=== PATIENT | male | born 1945 | race Two or more races ===

== ENCOUNTER 2024-12-31 10:02 | Inpatient (IN) | payer MEDICARE, MEDICAID ==
[~2024-12-31] VITALS: Ht 165.1 cm; Wt 69.6 kg
--- NOTE | 2024-12-31 10:32 | ED.PDOC ---
History of Present Illness HPI Comments HPI: Poor Historian. Decreased appetite and generalized weakness 78y M who presents to the ED via EMS for chief complaint of generalized weakness. Pt had the following ED course: - pt was at home and pt daughter after she has noticed increased weakness from pt and noted today, pt has increasing difficulty rising from toilet and EMS was called to the scene - EMS arrived on scene and noted after checking vitals, noted BP to be systolic in the 70's with noted all other vitals in normal range and pt ax0x4. - EMS gave pt 400 ml bolus and 1 gram Tylenol en route to the ED - pt now in the ED, states he has been having generalized weakness for the past 2 weeks - pt has not been eating his daily meals and has not consistently been taking his daily medications - pt family states pt was recently dx with UTI and has been taking keflex but has not been taking his benzoate, glipizide, metformin, and mirtazapine - pt has history of liver cancer and receives chemo with last tx 3 weeks prior with next tx scheduled for tomorrow. - pt in the ED, otherwise noted generalized weakness but denies any specific complaints - past medical history: DM, HTN, liver cancer past surgical history: unknown medications: glipizide, metformin, mirtazapine, allergies: nkda social history: denies tobacco use, denies Etoh use, denies drug use REVIEW OF SYSTEMS: CONSTITUTIONAL: Denies acute: fever, diaphoresis, chills, HEAD: Denies acute: headache, photophobia Eyes: Denies acute: Double vision, vision loss, eye pain, eye discharge. EARS: Denies acute: tinnitus, hearing loss, ear discharge, ear pain, THROAT: Denies acute: sore throat, swelling, difficulty swallowing , pain with swallowing, change in voice. NECK: Denies acute: neck pain, neck swelling, stiff neck. HEART: Denies acute : chest pain, palpitations, LUNGS: Denies acute: SOB, wheezing, cough, hemoptysis ABDOMEN: Denies acute: abdominal pain, Nausea, Vomiting, diarrhea, melena , hematemesis, hematochezia SKIN: Denies acute: rash, redness, lesions, itchiness. EXTREMITIES: Denies acute: calf pain, numbness, tingling, weakness, denies pain in extremity. Denies acute: Low back pain. Neuro: Denies acute: focal neurological deficit, motor or sensory focal neurological deficit, tremors, seizure like activity, confusion, dizziness, change in mental status, loss of bowel or bladder function, cauda equina like symptoms. : Denies acute: dysuria, hematuria, flank pain, increase in urinary frequency. PSYCH: Denies acute: hallucination, suicidal ideation, homicidal ideation. PHYSICAL EXAM: General: no acute distress, awake and alert. Head: normocephalic, atraumatic. Neck: supple, trachea is midline, no swelling. Throat: Normal phonation. Eyes:, no erythema, no purulent discharge, no proptosis, no icterus. Heart: regular tachycardia, no significant murmur appreciated. Lungs: no apparent respiratory distress, Able to speak in full sentences. No wheezing, no rhonchi, no crackles. No stridors Clear to auscultation bilaterally. Abdomen: non tender to palpation, slightly distended, soft, no guarding, no rebound, + bowel sounds. Neuro: Awake, Alert, oriented to name, self, situation, follows commands GCS=15. Speech is normal. Skin: no petechia, no purpura, no cyanosis, slightly-pale, generalized mild jaundice. Lower extremities: --2/4 bilateral - Pitting edema no deformity, no focal swelling, no calf TTP. Makes eye contact. moves all four extremities. Face: no apparent facial droop. No nuchal rigidity, Kernig's sign, Brudzinski's sign, no meningeal signs. ED COURSE: Chief Complaint: General Weakness Time Seen by MD: 10:17 Primary Care Provider: UNKNOWN Reviewed Notes: Nurses Notes, Allergies Allergies: Coded Allergies: NO KNOWN ALLERGIES (Unverified , 12/31/24) Home Meds Reported Medications Losartan Potassium (Losartan Potassium) 25 Mg Tab, 1 TAB PO DAILY 12/31/24 Mirtazapine (Mirtazapine Oral Disintegrating Tablet) 15 Mg Tab, 1 TAB PO 12/31/24 Information Source: Patient, Relative, Spouse Mode of Arrival: EMS Was a procedure done? Was a procedure done?: No Differential Dx Considerations may include: Includes but not limited to thyroid disease, encephalopathy, electrolyte abnormality, sepsis, infection, intracranial pathology, drug adverse effects, arrhythmia, kidney insufficiency, ACS, CVA, malignancy, anemia X-Ray, Labs, Meds, VS Vital Signs Date Time Temp Pulse Resp B/P (MAP) Pulse Ox O2 Delivery O2 Flow Rate FiO2 12/31/24 13:00 98 30 110/68 (82) 96 12/31/24 12:17 98 29 90/57 (68) 12/31/24 12:00 98 28 89/55 (66) 93 12/31/24 12:00 100 12/31/24 11:17 101 21 94/59 (71) 93 12/31/24 11:00 102 19 93 Room Air* 0 21 12/31/24 11:00 102 19 88/56 (67) 12/31/24 10:23 99.5 105 28 96/52 (67) 94 99.5 12/31/24 10:12 98.3 107 18 105/77 (86) 93 98.3 12/31/24 10:04 107 Lab Test 12/31/24 12:55 12/31/24 11:28 12/31/24 10:54 Range/Units Lactic Acid Level 4.9 *H 6.8 *H 0.4-2.0 mmol/L White Blood Count 14.6 H 4.4-10.8 10^3/uL Red Blood Count 4.02 L 4.5-5.90 10^6/uL Hemoglobin 8.5 L 13.5-17.5 g/dL Hematocrit 28.4 L 41.0-53.0 % Mean Corpuscular Volume 70.7 L 80.0-100.0 fL Mean Corpuscular Hemoglobin 21.2 L 28.0-32.0 pg Mean Corpuscular Hemoglobin Concent 30.0 L 32.0-36.0 g/dL Red Cell Distribution Width 26.8 H 11.8-14.3 % Platelet Count 205 140-450 10^3/uL Mean Platelet Volume 9.0 6.9-10.8 fL Neutrophils (%) (Auto) 37.0-80.0 % Lymphocytes (%) (Auto) 10.0-50.0 % Monocytes (%) (Auto) 0.0-12.0 % Basophils (%) (Auto) 0.0-2.0 % Neutrophils # (Auto) 1.6-8.6 10 ^3/uL Lymphocytes # (Auto) 0.4-5.4 10 ^3/uL Monocytes # (Auto) 0-1.3 10 ^3/uL Differential Total Cells Counted 100.0 100 Neutrophils % (Manual) 69 37.0-80.0 Band Neutrophils % (Manual) 13 Lymphocytes % (Manual) 17 10.0-50.0 Monocytes % (Manual) 1 0-12 Eosinophils % (Manual) 0 0-7 Basophils % (Manual) 0 0.0-2.0 Metamyelocytes % (manual) 0 Myelocytes % (Manual) 0 Promyelocytes % (Manual) 0 Blast Cells % (Manual) 0 Reactive Lymphocytes 0 Platelet Estimate Adequate Hypochromasia (manual) Moderate Anisocytosis (manual) Moderate Microcytosis Moderate Target Cells Moderate Sodium Level 131 L 136-145 mmol/L Potassium Level 5.2 H 3.5-5.1 mmol/L Chloride Level 97 L 98-107 mmol/L Carbon Dioxide Level 19 L 20-31 mmol/L Anion Gap 15 5-15 Blood Urea Nitrogen 49 H 9-23 mg/dL Creatinine 1.86 H 0.700-1.30 mg/dL Glomerular Filtration Rate Calc 37 >90 mL/min BUN/Creatinine Ratio 26.3 H 10.0-20.0 Serum Glucose 139 H 74-106 mg/dL Hemoglobin A1c 5.7 <5.7 % A1C Calcium Level 8.2 L 8.7-10.4 mg/dL Total Bilirubin 1.5 H 0.2-1.0 mg/dL Aspartate Amino Transferase (AST) 305 H 13-40 U/L Alanine Aminotransferase (ALT) 112 H 7-40 U/L Alkaline Phosphatase 288 H 46-116 U/L B-Type Natriuretic Peptide 261.59 0-100 pg/mL Total Protein 5.6 L 5.7-8.2 g/dL Albumin 2.2 L 3.2-4.8 g/dL Magnesium Level 1.8 1.6-2.6 mg/dL Current Medications Medications (Trade) Dose Ordered Sig/Go Route Start Time Stop Time Status Last Admin Sodium Chloride 1,500 ml @ 1,500 mls/hr ONCE ONCE IV 12/31/24 12:00 12/31/24 12:59 DC 12/31/24 12:19 Piperacillin Sod/ Tazobactam Sod 100 ml @ 100 mls/hr ONCE ONCE IV 12/31/24 12:00 12/31/24 12:59 DC 12/31/24 12:[address] [address] Ph: [phone] DIAGNOSTIC IMAGING Diagnostic Imaging Report : [id number] Signed PATIENT: SHERLY KENNYACCT: [id number] UNIT: [id number] : 1945 LOC: ER ROOM / BED: / AGE / SEX: 79 / M ADM STATUS: REG ER SERVICE 1048 ORDERING PHYSICIAN: JJ MCDOWELL DO PROCEDURE(s): CXRP - CHEST PORTABLE REASON: weak ORDER NUMBER(s): [id number], ACCESSION NUMBER(s): [id number] CHEST RADIOGRAPH Indication: weak Technique: Single frontal view of the chest was obtained COMPARISON: None FINDINGS: Lines and Tubes: Right chest wall pacemaker in satisfactory position. Lungs: Bilateral lower lobe airspace disease. Pleura: No effusion. No pneumothorax. Cardiomediastinal contours: Unremarkable Bones: Unremarkable IMPRESSION: Bilateral lower lobe airspace disease. ATED BY: STONEY BAUM MD DICTATED DATE/TIME: 12/31/241220 SIGNED BY: STONEY BAUM MD SIGNED DATE/TIME: 12/31/241220 CC: Time of 1ST Reevaluation: 21:40 Reevaluation 1ST: Improved Patient Education/Counseling: Diagnosis, Treatment Family Education/Counseling: Diagnosis, Treatment Comments Patient presented with the above HPI.--generalized weakness----workup was initiated. patient was found with the above mentioned diagnosis. the following medications were ordered: please refer to order lists of meds and tests obtained by myself Dr. Mcdowell. Patient ED course and VS have been stabilized. Patient has been reassessed in the ED and remained in a stable condition. Pertinent incidental findings were discussed with the patient and/or family. Patient/family voices understanding and is agreeable with plan. Patient has been observed in the ED adequate length of time to insure improvement/stability. Escalation of care considered: Consideration of escalation to observation or admission Patient was ADMITTED to the medicine team for further evaluation and treatment of their presentation. Sepsis protocol was initiated with antibiotics and fluids. All the reports of any imaging studies that were ordered by myself were reviewed by myself. Departure 1 Departure Time of Disposition: 11:55 Impression: Primary Impression: Sepsis Additional Impressions: Leukocytosis Elevated lactic acid level Anemia Liver cancer Pneumonia Disposition: ADMITTED INPATIENT Admit to: [facility] Condition: Guarded Discharged With: Self Critical Care Note Critical Care Time?: Yes (55 min-critical care time only) I personally scribed for JJ MCDOWELL DO (NAHUNFARMI) on 12/31/24 at 10:32. Electronically submitted by Stephanie Adler ([employer]). I personally scribed for JJ MCDOWELL DO (NAHUNFARMI) on 12/31/24 at 10:51. Electronically submitted by Stephanie Adler ([employer]). I personally scribed for JJ MCDOWELL DO (DVFARMI) on 12/31/24 at 12:44. Electronically submitted by Stephanie Adler ([employer]). JJ MCDOWELL DO Dec 31, 2024 10:32
[2024-12-31 11:00] VITALS: PULSE 102; RESP 19; O2SAT 93
[2024-12-31 11:44] LABS: Hemoglobin 8.5 g/dL (13.5-17.5)
[2024-12-31 11:47] LABS: Hematocrit 28.4 % (41.0-53.0); Mean Corpuscular Hemoglobin 21.2 pg (28.0-32.0); Mean Corpuscular Volume 70.7 fL (80.0-100.0); Platelet Count (auto) 205 10^3/uL (140-450); Red Blood Cells 4.02 10^6/uL (4.5-5.90); Red Cell Distribution Width 26.8 % (11.8-14.3); White Blood Cell 14.6 10^3/uL (4.4-10.8)
[2024-12-31 11:48] LABS: Lactic Acid w/Reflex 6.8 mmol/L (0.4-2.0)
[2024-12-31 11:54] LABS: Basophils % (manual) 0 (0.0-2.0); Blast Cells 0; Eosinophils % (manual) 0 (0-7); Metamyelocytes % 0; Myelocytes % 0; Promyelocytes % 0; Reactive Lymphocytes 0
[2024-12-31 12:08] LABS: Anion Gap 15 (5-15); BUN/Creatinine Ratio 26.3 (10.0-20.0)
[2024-12-31 12:12] LABS: Alanine Aminotransferase 112 U/L (7-40); Albumin 2.2 g/dL (3.2-4.8); Alkaline Phosphatase 288 U/L (46-116); Aspartate Aminotransferase 305 U/L (13-40); Bilirubin, Total 1.5 mg/dL (0.2-1.0); Blood Urea Nitrogen 49 mg/dL (9-23); Calcium 8.2 mg/dL (8.7-10.4); Carbon Dioxide 19 mmol/L (20-31); Chloride 97 mmol/L (98-107); Glucose 139 mg/dL (74-106); Potassium 5.2 mmol/L (3.5-5.1); Sodium 131 mmol/L (136-145); Total Protein 5.6 g/dL (5.7-8.2)
[2024-12-31] MEDS: SODIUM CHLORIDE 0.9% 1,500 ML IV ONE (12:19)
--- NOTE | 2024-12-31 12:24 | DVH ---
CHEST RADIOGRAPH Indication: weak Technique: Single frontal view of the chest was obtained COMPARISON: None FINDINGS: Lines and Tubes: Right chest wall pacemaker in satisfactory position. Lungs: Bilateral lower lobe airspace disease. Pleura: No effusion. No pneumothorax. Cardiomediastinal contours: Unremarkable Bones: Unremarkable IMPRESSION: Bilateral lower lobe airspace disease.
[2024-12-31 12:27] LABS: Band Neutrophils % (manual) 13; Lymphocytes % (manual) 17 (10.0-50.0); Monocytes % (manual) 1 (0-12); Platelet Estimate Adequate
[2024-12-31 12:28] LABS: Anisocytosis Moderate; Hypochromia Moderate; Target Cell MODERATE
[2024-12-31] MEDS: PIPERACILLIN-TAZOB 3.375GM 100 ML IV ONE (12:33)
[2024-12-31] MEDS ORDERED: ACETAMINOPHEN 325 MG TAB PO PRN (13:15)
[2024-12-31] MEDS ORDERED: DEXTROSE (50%) 50ML SYRG IV PRN (13:45)
--- NOTE | 2024-12-31 13:51 | DVHHP2 ---
History of Present Illness Reason for Visit: Generalized weakness and decreased appetite History of Present Illness Tiago Davila is a 79YO M with a past medical history of hypertension, diabetes type 2, and liver cancer on chemo at [facility] in [place] who presents to the ED with generalized weakness and decreased appetite x1 week. Patient's daughter Poonam and granddaughter Nena report that he has not been walking for the last week and are requesting a wheelchair upon discharge. Family reports that he does use a front wheel walker when he does ambulate. They also reported that he was diagnosed recently with a UTI. Upon examination patient has a wet cough with a productive sputum noted. Patient denies any chest pain, shortness of breath, fever, chills, lightheadedness, dizziness, recent trauma or injury, abdominal pain, nausea, vomiting, or diarrhea. Family member states that patient has been getting 3 weeks of chemo for the liver cancer and has a pending chemo treatment for tomorrow. Cardiovascular: HTN Endocrine: Diabetes Past Medical History Liver cancer on chemo Past Surgical History: Other (Abdominal surgery 30 years ago) Family History: Other (Both parents ) Smoke: No ALCOHOL: none Drugs: None Lives: with Family Domestic Violence: Neg Review of Systems Constitutional: Yes: Weakness, Malaise, Other (Decreased appetite) Respiratory: Cough Allergies: Coded Allergies: NO KNOWN ALLERGIES (Unverified , 12/31/24) Medications Current Medications Medications Dose Ordered Sig/Go Route Start Time Stop Time Status Last Admin Dose Admin Piperacillin Sod/ Tazobactam Sod 100 ml @ 25 mls/hr Q8HR IV 12/31/24 14:00 UNV Sodium Chloride 1,000 ml @ 100 mls/hr Q10H IV 12/31/24 13:15 Ondansetron HCl 4 mg Q4HP PRN IV 12/31/24 13:15 Enoxaparin Sodium 30 mg DAILY SC 01/01/25 10:00 UNV Acetaminophen 650 mg Q6HP PRN PO 12/31/24 13:15 Diagnostic Test (Pha) 1 strip ACHS 12/31/24 17:00 Insulin Human Regular ACHS SC 12/31/24 17:00 Dextrose 50 ml UD PRN IV 12/31/24 13:45 Exam Vital Signs Vital Signs Date Time Temp Pulse Resp B/P (MAP) Pulse Ox O2 Delivery O2 Flow Rate FiO2 12/31/24 13:00 98 30 110/68 (82) 96 12/31/24 11:00 Room Air* 0 21 12/31/24 10:23 99.5 99.5 General Appearance: Alert, Oriented X3, Cooperative, No acute distress HEENT: PERRLA, EOMI Respiratory: Normal air movement Cardiovascular: Normal S1, Normal S2, No murmurs Abdominal: Soft Neuro: Sensation intact Psych/Mental Status: Mental status NL, Mood NL Labs/Xrays Labs Test 12/31/24 12:55 12/31/24 11:28 12/31/24 10:54 Range/Units White Blood Count 14.6 H 4.4-10.8 10^3/uL Red Blood Count 4.02 L 4.5-5.90 10^6/uL Hemoglobin 8.5 L 13.5-17.5 g/dL Hematocrit 28.4 L 41.0-53.0 % Mean Corpuscular Volume 70.7 L 80.0-100.0 fL Mean Corpuscular Hemoglobin 21.2 L 28.0-32.0 pg Mean Corpuscular Hemoglobin Concent 30.0 L 32.0-36.0 g/dL Red Cell Distribution Width 26.8 H 11.8-14.3 % Platelet Count 205 140-450 10^3/uL Mean Platelet Volume 9.0 6.9-10.8 fL Neutrophils (%) (Auto) 37.0-80.0 % Lymphocytes (%) (Auto) 10.0-50.0 % Monocytes (%) (Auto) 0.0-12.0 % Basophils (%) (Auto) 0.0-2.0 % Neutrophils # (Auto) 1.6-8.6 10 ^3/uL Lymphocytes # (Auto) 0.4-5.4 10 ^3/uL Monocytes # (Auto) 0-1.3 10 ^3/uL Differential Total Cells Counted 100.0 100 Neutrophils % (Manual) 69 37.0-80.0 Band Neutrophils % (Manual) 13 Lymphocytes % (Manual) 17 10.0-50.0 Monocytes % (Manual) 1 0-12 Eosinophils % (Manual) 0 0-7 Basophils % (Manual) 0 0.0-2.0 Metamyelocytes % (manual) 0 Myelocytes % (Manual) 0 Promyelocytes % (Manual) 0 Blast Cells % (Manual) 0 Reactive Lymphocytes 0 Platelet Estimate Adequate Hypochromasia (manual) Moderate Anisocytosis (manual) Moderate Microcytosis Moderate Target Cells Moderate Sodium Level 131 L 136-145 mmol/L Potassium Level 5.2 H 3.5-5.1 mmol/L Chloride Level 97 L 98-107 mmol/L Carbon Dioxide Level 19 L 20-31 mmol/L Anion Gap 15 5-15 Blood Urea Nitrogen 49 H 9-23 mg/dL Creatinine 1.86 H 0.700-1.30 mg/dL Glomerular Filtration Rate Calc 37 >90 mL/min BUN/Creatinine Ratio 26.3 H 10.0-20.0 Serum Glucose 139 H 74-106 mg/dL Calcium Level 8.2 L 8.7-10.4 mg/dL Total Bilirubin 1.5 H 0.2-1.0 mg/dL Aspartate Amino Transferase (AST) 305 H 13-40 U/L Alanine Aminotransferase (ALT) 112 H 7-40 U/L Alkaline Phosphatase 288 H 46-116 U/L B-Type Natriuretic Peptide 261.59 0-100 pg/mL Total Protein 5.6 L 5.7-8.2 g/dL Albumin 2.2 L 3.2-4.8 g/dL Magnesium Level 1.8 1.6-2.6 mg/dL CHEST RADIOGRAPH Indication: weak Technique: Single frontal view of the chest was obtained COMPARISON: None FINDINGS: Lines and Tubes: Right chest wall pacemaker in satisfactory position. Lungs: Bilateral lower lobe airspace disease. Pleura: No effusion. No pneumothorax. Cardiomediastinal contours: Unremarkable Bones: Unremarkable IMPRESSION: Bilateral lower lobe airspace disease. Assessment/Plan Assessment/Plan Assessment Leukocytosis rule out sepsis Anemia Tachycardia Hyponatremia Hyperkalemia Hypomagnesemia Azotemia Hyperbilirubinemia Transaminitis Lactic acidosis ?PNA Diabetes type 2 History of hypertension History of liver cancer on chemo History of abdominal surgery 30 years ago Plan Admit to [facility] IV antibiotics-Zosyn Hemoglobin A1c ISS and Accu-Cheks IV fluids Urine cultures NS 1.5 L given in ED Manual differential Chest x-ray UA BNP Mag level Lactic Blood cultures EKG noted Home medications reconciled Discussed plan of care with patient, patient's daughter, patient's granddaughter, and nurse DVT prophylaxis-Lovenox PUD prophylaxis-not indicated no history of GERD or GI bleed Plan discussed with: Patient, Daughter, Other (Granddaughter) My Orders Orders - MAIDA GALLARDO Procedure Category Date Status Time Piperacillin-Tazob PHA 12/31/24 Logged 3.375gm (Zosyn 3.375g 14:00 Sodium Chloride 0.9% PHA 12/31/24 In Process 13:15 Admit ADMIT 12/31/24 Transmitted 13:10 Allergies LUDWIG 12/31/24 In Process 13:10 Code Status CODE 12/31/24 Transmitted 13:10 Ondansetron Hcl PHA 12/31/24 In Process (Zofran) 13:15 Complete Blood Count LAB 01/01/25 Verified 04:00 Comprehensive LAB 01/01/25 Verified Metabolic Panel 04:00 Cardiac DIET 12/31/24 Transmitted Diet-2gna,Lofat,Lochol Lunch Enoxaparin Sodium PHA 01/01/25 Logged (Lovenox) 10:00 Acetaminophen Tablet PHA 12/31/24 In Process (Tylenol Tablet) 13:15 Urine Bacterial AMADOR 12/31/24 Logged Culture 13:10 Glucose Blood PHA 12/31/24 In Process (Accu-Chek Comfort 17:00 Insulin R (Human) PHA 12/31/24 In Process (Insulin R) 17:00 Dextrose 50% Syringe PHA 12/31/24 In Process 13:45 Hemoglobin A1c LAB 12/31/24 Logged 13:39 Date of Service: Dec 31, 2024 Billing Provider: MAIDA GALLARDO Common Visit Codes: [id number] INP/OBS CARE (HIGH) MAIDA GALLARDO Dec 31, 2024 13:51
[2024-12-31] MEDS: SODIUM ZIRCONIUM CYCL 10 GM PAK PO ONE (14:37)
[2024-12-31] MEDS: SODIUM CHLORIDE 0.9% 1,000 ML IV SCH (14:46)
[2024-12-31] MEDS ORDERED: MIRT15TA PO (14:55)
[2024-12-31] MEDS ORDERED: LOS25T PO (14:55)
[2024-12-31] MEDS: MAGNESIUM SULFATE 1GM/100ML 100 ML IV ONE (15:58)
[2024-12-31 17:06] LABS: Urine Bacteria None Seen /hpf (None Seen)
[2024-12-31] MEDS: ACCU-CHEK COMFORT CURVE STRIP VI SCH (18:39)
[2024-12-31] MEDS: InsuLIN REG 1unit/0.01ml Soln (100units/ml) SC SCH (19:07)
[2024-12-31 19:30] VITALS: PULSE 98; RESP 19; O2SAT 94
[2024-12-31 20:24] LABS: Urine Blood TRACE /uL (Negative); Urine Clarity Turbid (Clear); Urine Color Yellow (Yellow); Urine Mucus FEW (None Seen); Urine Protein, UAD 1+ (Negative); Urine Specific Gravity 1.022 (1.001-1.035); Urine Squamous Epithelial Cell FEW /hpf (<5); Urine Urobilinogen Normal (Negative); Urine WBC 9 /HPF (0-3); Urine pH 5.5 (5.0-9.0)
[2024-12-31] MEDS: PIPERACILLIN-TAZOB 3.375GM 100 ML IV SCH (21:07)
[2024-12-31] MEDS: CALCIUM GLUC 1,000mg/50ml-NS 50 ML IV SCH (22:30)
[2024-12-31 22:41] LABS: Hematocrit 23.2 % (41.0-53.0)
--- NOTE | 2024-12-31 22:59 | DVH ---
Exam: CT CT AB PEL WO CON-NO ORAL OR IV History: R/O GI bleed Comparison Study: None available at time of dictation. TECHNIQUE: Multidetector CT of the abdomen was performed from lung bases to pubic symphysis. Imaging was performed without IV contrast. Axial, coronal and sagittal multiplanar reformats were obtained fr om the axial data set by the technologist. Radiation Dose Information: CT Dose: CTDI volume is 9.64 mGy. Dose-length product is 593.24 mGy*cm FINDINGS: Evaluation of solid organs is limited due to lack of intravenous contrast use. Findings: Lung Bases: Bibasilar infra airspace disease left worse than right. Normal heart size. Bilateral ple ural effusions left worse than right. Liver: The liver is normal in size. No focal lesions. Gallbladder and Biliary Tree: Unremarkable Spleen: Unremarkable Pancreas: Appears to be a large mass involving the head and body of the pancreas. Appears to measure 17.3 cm in width and 10.7 cm in AP dimension. Is somewhat difficult to distinguish from the right lob e of the liver. Consider possible repeat CT with IV contrast. Another possibility would be an MRI. Adrenal Glands: Unremarkable Kidneys: Kidneys are grossly normal without calculi or hydronephrosis. Bladder: Grossly unremarkable for degree of distention. Bowel: The stomach is grossly normal in appearance. Small bowel and colon are normal in caliber and d istribution. The appendix is not visualized; however, no secondary findings of acute appendicitis id entified. Ascites: Small amount of ascites Lymphadenopathy: No mesenteric, retroperitoneal or periportal lymphadenopathy. Abdominal Wall and Mesentery: Unremarkable. Vasculature: The visualized abdominal aorta is normal in size and caliber. Evaluation of abdominal a nd pelvic vessels is limited due to lack of intravenous contrast. Pelvic Organs: Unremarkable Musculoskeletal: No aggressive focal bony lesions, acute fractures or dislocation. Soft tissues: Unremarkable IMPRESSION: 1. Liver appears heterogeneous. 2. There appears to be a large mass involving the head and body of the pancreas. It is difficult to s eparate it from the liver. Appears to measure 17.3 cm in transverse dimension and 10.3 cm in AP dime nsion. Consider repeat study with IV contrast or MRI. 3. Ascites 4. Radiation optimization: All CT scans at this facility use at least one of these dose optimization te chniques: automated exposure control mA and/or kV adjustment per patient size (includes targeted exa ms where dose is matched to clinical indication) or iterative reconstruction. HS:Y
[2025-01-01] VITALS (38 sets, daily range): BP systolic 88–130; BP diastolic 53–80; PULSE 74–105; RESP 13–26; TEMP 96.9–97.8; O2SAT 90–100
[2025-01-01] MEDS: PANTOPRAZOLE 80 MG in SODIUM CHL 0.9% 100 ML IV ONE ×2 (01:57→18:41)
[2025-01-01] MEDS: PANTOPRAZOLE 40mg/50ML NS AE 50 ML IV ONE (02:02)
[2025-01-01] MEDS: PANTOPRAZOLE 40 MG/10 ML VIAL INJ IV ONE (02:02)
[2025-01-01] MEDS: PANTOPRAZOLE 40mg/50ML NS AE 50 ML IV SCH ×2 (02:36→22:04)
[2025-01-01] MEDS ORDERED: GLIP10TA9 PO (03:06)
[2025-01-01] MEDS ORDERED: METF-370 PO (03:10)
[2025-01-01] MEDS ORDERED: BENZ100C97 PO (03:10)
[2025-01-01] MEDS ORDERED: CEPH250C PO (03:12)
[2025-01-01 09:50] LABS: Basophils # (auto) 0.2 10 ^3/uL (0-0.2); Basophils % (auto) 2.2 % (0.0-2.0); Eosinophils # (auto) 0.1 10 ^3/uL (0-0.8); Eosinophils % (auto) 1.4 % (0.0-7.0); Hematocrit 25.9 % (41.0-53.0); Hemoglobin 8.1 g/dL (13.5-17.5); Lymphocytes # (auto) 2.1 10 ^3/uL (0.4-5.4); Lymphocytes % (auto) 26.5 % (10.0-50.0); Mean Corpuscular Hemoglobin 22.5 pg (28.0-32.0); Mean Corpuscular Hgb Conc. 31.3 g/dL (32.0-36.0); Mean Corpuscular Volume 71.8 fL (80.0-100.0); Monocytes # (auto) 0.8 10 ^3/uL (0-1.3); Monocytes % (auto) 9.7 % (0.0-12.0); Neutrophils # (auto) 4.7 10 ^3/uL (1.6-8.6); Neutrophils % (auto) 60.2 % (37.0-80.0); Nucleated Red Blood Cells % 0.4 %; Platelet Count (auto) 193 10^3/uL (140-450); Red Blood Cells 3.61 10^6/uL (4.5-5.90); Red Cell Distribution Width 26.4 % (11.8-14.3); White Blood Cell 7.8 10^3/uL (4.4-10.8)
[2025-01-01 10:02] LABS: Anion Gap 9 (5-15); BUN/Creatinine Ratio 38.7 (10.0-20.0); Carbon Dioxide 22 mmol/L (20-31); Chloride 102 mmol/L (98-107); Potassium 4.2 mmol/L (3.5-5.1)
[2025-01-01 10:11] LABS: % Iron Saturation 4.7 % (20-55)
[2025-01-01 10:15] LABS: Alanine Aminotransferase 113 U/L (7-40); Albumin 2.1 g/dL (3.2-4.8); Alkaline Phosphatase 236 U/L (46-116); Aspartate Aminotransferase 302 U/L (13-40); Bilirubin, Total 1.5 mg/dL (0.2-1.0); Blood Urea Nitrogen 55 mg/dL (9-23); Calcium 8.1 mg/dL (8.7-10.4); Glucose 171 mg/dL (74-106); Sodium 133 mmol/L (136-145); Total Protein 5.2 g/dL (5.7-8.2)
[2025-01-01] MEDS: ENOXAPARIN SOD 30 MG/0.3 ML SYRINGE SC SCH (10:25)
--- NOTE | 2025-01-01 11:52 | DVHINCON2 ---
GI Consult Consult Note GI consult note Date of Consultation: 01/01/2025 Chief Complaint: Anemia, stool occult blood, history liver cancer Referring Physician: Dr. Dunaway H&P: 79-year-old Yemeni-speaking male, family at bedside translating, presented to ER with generalized weakness for one week Patient also has decreased appetite, patient has decreased weight unsure of how many lb per family Recently diagnosed with UTI No abdominal pain. No nausea or vomiting Last BM today, with melena and red blood, which started one day ago Last EGD August2024. And patient was also diagnosed with liver cancer at this time. Sees Dr. Khoi Kellogg at [facility], and has been on chemo. No colonoscopy in past Patient is on Lovenox Past Medical History: Cardiovascular: HTN Endocrine: Diabetes Past Medical History Liver cancer on chemo Past Surgical History: Abdominal surgery more than 30 years ago Social History: NO smoking, drinking ETOH and use of illegal drugs. Family History: Noncontributory Review of Systems: Constitutional: no fever, chill, +weight loss Heart: no chest pain, no chest pressure Lung: + cough, no dyspnea with exertion Abdomen: see HPI Physical exam: General: NAD, AAOX3 Chest: lung coleman clear to auscultation Heart: RRR, no murmur Abdomen: non-distended, no tenderness to palpation, +BS Labs:Labs Test 12/31/24 12:55 12/31/24 11:28 12/31/24 10:54 Range/Units White Blood Count 14.6 H 4.4-10.8 10^3/uL Red Blood Count 4.02 L 4.5-5.90 10^6/uL Hemoglobin 8.5 L 13.5-17.5 g/dL Hematocrit 28.4 L 41.0-53.0 % Mean Corpuscular Volume 70.7 L 80.0-100.0 fL Mean Corpuscular Hemoglobin 21.2 L 28.0-32.0 pg Mean Corpuscular Hemoglobin Concent 30.0 L 32.0-36.0 g/dL Red Cell Distribution Width 26.8 H 11.8-14.3 % Platelet Count 205 140-450 10^3/uL Mean Platelet Volume 9.0 6.9-10.8 fL Neutrophils (%) (Auto) 37.0-80.0 % Lymphocytes (%) (Auto) 10.0-50.0 % Monocytes (%) (Auto) 0.0-12.0 % Basophils (%) (Auto) 0.0-2.0 % Neutrophils # (Auto) 1.6-8.6 10 ^3/uL Lymphocytes # (Auto) 0.4-5.4 10 ^3/uL Monocytes # (Auto) 0-1.3 10 ^3/uL Differential Total Cells Counted 100.0 100 Neutrophils % (Manual) 69 37.0-80.0 Band Neutrophils % (Manual) 13 Lymphocytes % (Manual) 17 10.0-50.0 Monocytes % (Manual) 1 0-12 Eosinophils % (Manual) 0 0-7 Basophils % (Manual) 0 0.0-2.0 Metamyelocytes % (manual) 0 Myelocytes % (Manual) 0 Promyelocytes % (Manual) 0 Blast Cells % (Manual) 0 Reactive Lymphocytes 0 Platelet Estimate Adequate Hypochromasia (manual) Moderate Anisocytosis (manual) Moderate Microcytosis Moderate Target Cells Moderate Sodium Level 131 L 136-145 mmol/L Potassium Level 5.2 H 3.5-5.1 mmol/L Chloride Level 97 L 98-107 mmol/L Carbon Dioxide Level 19 L 20-31 mmol/L Anion Gap 15 5-15 Blood Urea Nitrogen 49 H 9-23 mg/dL Creatinine 1.86 H 0.700-1.30 mg/dL Glomerular Filtration Rate Calc 37 >90 mL/min BUN/Creatinine Ratio 26.3 H 10.0-20.0 Serum Glucose 139 H 74-106 mg/dL Calcium Level 8.2 L 8.7-10.4 mg/dL Total Bilirubin 1.5 H 0.2-1.0 mg/dL Aspartate Amino Transferase (AST) 305 H 13-40 U/L Alanine Aminotransferase (ALT) 112 H 7-40 U/L Alkaline Phosphatase 288 H 46-116 U/L B-Type Natriuretic Peptide 261.59 0-100 pg/mL Total Protein 5.6 L 5.7-8.2 g/dL Albumin 2.2 L 3.2-4.8 g/dL Magnesium Level 1.8 1.6-2.6 mg/dL Imaging: CT abdomen pelvis IMPRESSION: 1. Liver appears heterogeneous. 2. There appears to be a large mass involving the head and body of the pancreas. It is difficult to separate it from the liver. Appears to measure 17.3 cm in transverse dimension and 10.3 cm in AP dimension. Consider repeat study with IV contrast or MRI. 3. Ascites Assessment: GI bleed Anemia Liver CA Leukocytosis Lactic acidosis Plan: Discussed with Dr. Miranda Monitor labs and transfuse if hemoglobin less than seven Protonix Symptomatic treatment recommended at this time We will continue to follow this patient Thank you for this consult Date of Service: Jan 01, 2025 Billing Provider: PAT LEON Common Visit Codes: CONSULT ONLY Consultation Codes: [id number] CONSULT <60MIN PAT LEON Jan 01, 2025 11:51
[2025-01-01] MEDS: IRON SUCROSE COMPLEX 110 ML IV SCH (12:43)
[2025-01-01 13:59] LABS: Mean Corpuscular Volume 71.6 fL (80.0-100.0)
[2025-01-01 14:01] LABS: Hemoglobin 7.4 g/dL (13.5-17.5); Mean Corpuscular Hgb Conc. 32.1 g/dL (32.0-36.0); Platelet Count (auto) 162 10^3/uL (140-450); Red Blood Cells 3.22 10^6/uL (4.5-5.90); White Blood Cell 7.1 10^3/uL (4.4-10.8)
[2025-01-01 14:04] LABS: Anion Gap 7 (5-15); BUN/Creatinine Ratio 39.6 (10.0-20.0); Carbon Dioxide 22 mmol/L (20-31); Chloride 105 mmol/L (98-107); Potassium 4.2 mmol/L (3.5-5.1)
[2025-01-01 14:06] LABS: Red Cell Distribution Width 26.1 % (11.8-14.3)
--- NOTE | 2025-01-01 14:06 | DVHPNRES ---
Progress Note Date Seen: Jan 01, 2025 Resident Creating Document: LINO SHERMAN RESIDENT Has the PT tested + for MRSA If YES, has PT been informed?: No Medical Necessity Reason Pt with a Central, PICC or Fol: No Subjective Review of Systems A 79-year-old Albanian-speaking male with PMHx of HTN, DM2, liver cancer? on chemotherapy (last session on 12/11/24 at [facility] under care of Dr. Khoi Kellogg per family), presented to the ED with generalized weakness, decreased appetite for 2 weeks Per daughter and granddaughter, he has had difficulty ambulating, increasing weakness (noticed while rising from the toilet), and poor oral intake. He was recently diagnosed with UTI and prescribed Keflex, though he has not been compliant with home medications including glipizide, metformin, and mirtazapine. EMS was called when he was found hypotensive at home (SBP in 70s). Upon arrival, he was alert and oriented but continued to endorse generalized weakness. He also has a productive cough and was noted to have bilateral pleural effusions on imaging. CT abdomen/pelvis revealed a large pancreatic head mass (17.3 x 10.3 cm), ascites, liver heterogeneity suggesting metastasis, and peritoneal involvement. Today the patient had an episode of hematemesis with approximately 150 cc of bright red blood around 4:20 p.m., Also he was having multiple episodes of melena during the day The patient was started on a Protonix drip, NPO, and transfusion support. He received 1 unit PRBCs at 1 p.m. on 12/31 and is planned to receive an additional unit for ongoing bleeding along with FFP and IV iron. Upgraded to ICU status PAST MEDICAL HISTORY: Hypertension Type 2 Diabetes Mellitus Liver cancer on chemotherapy Recent UTI PAST SURGICAL HISTORY: Abdominal surgery >30 years ago MEDICATIONS PRIOR TO ADMISSION: Glipizide Metformin Mirtazapine Keflex Objective vital signs Vital Sign Date Time Temp Pulse Resp B/P (MAP) Pulse Ox O2 Delivery O2 Flow Rate FiO2 01/01/25 13:00 97.4 87 19 95/61 (72) 97 97.4 01/01/25 08:00 Nasal Cannula* 2 28 Total Intake and Output 12/31/24 12/31/24 01/01/25 15:00 23:00 07:00 Intake Total 1600 ml 475 ml 545 ml Balance 1600 ml 475 ml 545 ml medications Current Medications Medications Dose Ordered Sig/Go Route Start Time Stop Time Status Last Admin Dose Admin Piperacillin Sod/ Tazobactam Sod 100 ml @ 25 mls/hr Q8HR IV 12/31/24 21:00 01/01/25 05:53 25 MLS/HR Sodium Chloride 1,000 ml @ 100 mls/hr Q10H IV 12/31/24 13:15 12/31/24 14:46 100 MLS/HR Ondansetron HCl 4 mg Q4HP PRN IV 12/31/24 13:15 Enoxaparin Sodium 30 mg DAILY SC 01/01/25 10:00 01/01/25 10:25 30 MG Acetaminophen 650 mg Q6HP PRN PO 12/31/24 13:15 Diagnostic Test (Pha) 1 strip ACHS 12/31/24 17:00 01/01/25 11:30 1 STRIP Insulin Human Regular ACHS SC 12/31/24 17:00 01/01/25 11:30 3 UNITS Dextrose 50 ml UD PRN IV 12/31/24 13:45 Pantoprazole Sodium 50 ml @ 10 mls/hr Q5H IV 01/01/25 01:30 01/01/25 12:42 10 MLS/HR Iron Sucrose 110 ml @ 110 mls/hr DAILY@1200 IV 01/01/25 12:00 01/05/25 12:59 01/01/25 12:43 110 MLS/HR Examination General: NAD, AAOx3 HEENT: No icterus, pallor; hematemesis Lungs: Clear to auscultation bilaterally Heart: RRR, no murmurs Abdomen: Soft, non-distended, +BS, no tenderness; fresh blood with melena per rectum Extremities: No edema Skin: No rash or bruising Nurse was spiritual care coordinator during examination laboratory and microbiology Test 01/01/25 13:30 Range/Units Serum Glucose Pending Microbiology Date/Time Source Procedure Growth Status 12/31/24 19:44 Voided Urine Urine Culture - Preliminary Resulted 12/31/24 10:55 Blood Blood Culture - Preliminary NO GROWTH AFTER 24 HOURS OF INCUBATION. Resulted Labs and/or images reviewed: Labs reviewed by me, Image(s) reviewed by me Problem List/Assessment/Plan Problem List/Assessment/Plan ASSESSMENT & PLAN: Upgraded to ICU status GI: # Upper GI Bleed likely secondary to malignancy/portal hyper tension/chemotherapy enterocolitis # Anemia acute blood loss anemia from GI bleed. Patient had melena and hematemesis (~150 cc). On IV PPI drip. GI consulted. Transfusion with PRBCs and FFP underway. NPO IV fluids. IMAGING: CT Abd/Pelvis (12/31): Large pancreatic head mass (17.3 x 10.3 cm), liver heterogeneity, peritoneal involvement, small ascites, bilateral pleural effusions (left > right), no intra-abdominal lymphadenopathy Last EGD: August 2024 No colonoscopy on file #Pancreatic Mass newly identified, large mass (likely pancreatic cancer) #Known Liver Cancer on Chemotherapy? #Transaminitis #Hyperbilirubinemia being followed by Dr. Kellogg at [facility], last chemo 12/11. Pending medical records from the family #Ascites likely malignant. Monitor volume status Not procedure for now due to bleeding Pulmonary #Sepsis: #Acute respiratory failure #PNA? gram neg/ gram + #bilateral pleural effusions (left > right) possible aspiration Zosyn IV O2 2 LT Endocrinology #Type 2 Diabetes Mellitus NPO status Sliding scale insulin. #HTN stable monitor BP. Renal #Hyponatremia, mild #Hyperkalemia, resolved #Hypomagnesemia, mild 1.8 fu lab tomorrow am #OSKAR, vasomotor mediated iv fluids #UTI (recent) Completed Keflex at home Zosyn IV Goals of care discussed with the patient and his for 20 minutes; full code 160 minutes of critical care time Case discussed with Dr Perez and Dr Miranda (GI) Plan discussed with: Patient, Other (Nurse) My Orders My Orders Orders - LINO SHERMAN RESIDENT Procedure Category Date Status Time * Gi Dvh Overhead Crane Technician CONS 01/01/25 Transmitted 07:16 * Wound Consult CONS 01/01/25 Transmitted Iron Sucrose Complex PHA 01/01/25 In Process (Venofer) 12:00 Echo 2d Mode Cardiac US 01/01/25 Logged DOP 11:57 * Mophead Sewer CONS 01/01/25 Transmitted Consult Complete Blood Count LAB 01/01/25 In Process 12:53 Comprehensive LAB 01/01/25 In Process Metabolic Panel 12:53 Critical Care Time (mins): 160 Addendum Addendum Addendum I was physically present for the montgomery portions of the service provided to patient by THE RESIDENT. I have reviewed the documentation, discussed the case with resident and agree with the resident's documentation except as noted. Also the patient's clinical case was discussed with the patient's nurse. This medical document was created using an electronic medical record system with computerized dictation system. Although this document has been carefully reviewed, there might still be some phonetic and typographical errors. These areas are purely typographical due to imperfections of the software programs, and do not reflect any compromise in the patient's medical care. Late signature. Date of Service: Jan 01, 2025 Billing Provider: MIKAYLA PEREZ MD Common Visit Codes: 75307-GVCYMNLE CARE 30-74 MIN (160 minutes), 15922-LYNOMTLL CARE-EACH +30MIN Secondary Visit Codes: [id number]-[id number] CARE PLAN 30 MINUTES (20 minutes) LINO SHERMAN RESIDENT Jan 01, 2025 14:06 MIKAYLA PEREZ MD Jan 02, 2025 06:35
[2025-01-01 14:07] LABS: Alanine Aminotransferase 108 U/L (7-40); Albumin 1.9 g/dL (3.2-4.8); Alkaline Phosphatase 209 U/L (46-116); Aspartate Aminotransferase 399 U/L (13-40); Basophils % (manual) 0 (0.0-2.0); Bilirubin, Total 1.3 mg/dL (0.2-1.0); Blood Urea Nitrogen 55 mg/dL (9-23); Calcium 8.1 mg/dL (8.7-10.4); Eosinophils % (manual) 0 (0-7); Glucose 134 mg/dL (74-106); Monocytes % (manual) 0 (0-12); Myelocytes % 0; Promyelocytes % 0; Sodium 134 mmol/L (136-145); Total Protein 4.8 g/dL (5.7-8.2)
[2025-01-01 14:34] LABS: Band Neutrophils % (manual) 8; Blast Cells 3; Lymphocytes % (manual) 52 (10.0-50.0); Metamyelocytes % 2; Reactive Lymphocytes 2
[2025-01-01 14:35] LABS: Anisocytosis Moderate; Hypochromia Moderate; Platelet Estimate Adequate
[2025-01-01] MEDS: ONDANSETRON HCL 4 MG/2 ML VIAL IV PRN (16:23)
[2025-01-01 19:06] LABS: Hemoglobin 7.8 g/dL (13.5-17.5); Mean Corpuscular Hgb Conc. 30.8 g/dL (32.0-36.0)
[2025-01-01 19:08] LABS: Hematocrit 25.2 % (41.0-53.0); Mean Corpuscular Hemoglobin 22.1 pg (28.0-32.0); Mean Corpuscular Volume 71.7 fL (80.0-100.0); Platelet Count (auto) 191 10^3/uL (140-450); Red Blood Cells 3.52 10^6/uL (4.5-5.90)
[2025-01-01 19:21] LABS: INR 1.55 (0.9-1.15); Partial Thromboplastin Time 41.7 SEC (24.5-34.5); Prothrombin Time 15.7 sec (9.3-11.8)
[2025-01-01 19:23] LABS: Red Cell Distribution Width 25.7 % (11.8-14.3)
[2025-01-01 19:24] LABS: Basophils % (manual) 0 (0.0-2.0); Blast Cells 0; Metamyelocytes % 0; Myelocytes % 0; Promyelocytes % 0; Reactive Lymphocytes 0
--- NOTE | 2025-01-01 19:32 | ECG ---
[facility] Test Date: 2024-12-31 Test Time: 10:04:10 Pat Name: SHERLY KENNY Department: ED Room: 0204T Gender: M Supervisor [employer]: JORGE : [id number] Requested By: EMERGENCY EMERGENCY Order Number: [id number] Reading MD: Omar Beltrán Measurements Intervals [place] Rate: 107 P: 49 AL: 154 QRS: 61 QRSD: 71 T: 6 QT: 375 QTc: 501 Interpretive Statements Sinus tachycardia Atrial premature complex Low voltage, extremity and precordial leads Prolonged QT interval Electronically Signed On 01-06-2025 21:02:36 PDT by Omar Beltrán Please click the below link to view image of tracing.
[2025-01-01 20:14] LABS: Band Neutrophils % (manual) 2; Eosinophils % (manual) 1 (0-7); Lymphocytes % (manual) 23 (10.0-50.0); Monocytes % (manual) 2 (0-12); Platelet Estimate Adequate
[2025-01-01 20:15] LABS: Anisocytosis Moderate; Hypochromia Moderate; Target Cell MODERATE
[2025-01-01 20:16] LABS: Ovalocytes FEW
[2025-01-02] VITALS (112 sets, daily range): BP systolic 68–159; BP diastolic 36–74; PULSE 84–112; RESP 13–34; TEMP 96.5–98.4; O2SAT 90–100
[2025-01-02 00:39] LABS: Hemoglobin 7.8 g/dL (13.5-17.5)
[2025-01-02 00:41] LABS: Hematocrit 24.7 % (41.0-53.0)
[2025-01-02] MEDS: LACTATED RINGER'S 500 ML IV ONE ×2 (02:29→04:45)
--- NOTE | 2025-01-02 03:35 | DVH ---
CHEST RADIOGRAPH Indication: pleural efussion Technique: Single frontal view of the chest was obtained COMPARISON: XY CHEST PORTABLE on DOS: 12/31/24 FINDINGS: Lines and Tubes: Right Port-A-Cath unchanged. Lungs: No significant change in persistent patchy bibasilar pulmonary infiltrates. Pleura: No effusion. No pneumothorax. Cardiomediastinal contours: Unremarkable Bones: Unremarkable IMPRESSION: 1. Stable appearing patchy bibasilar pulmonary infiltrate.
[2025-01-02 03:44] LABS: Platelet Count (auto) 130 10^3/uL (140-450); White Blood Cell 8.9 10^3/uL (4.4-10.8)
[2025-01-02 03:47] LABS: Hematocrit 18.3 % (41.0-53.0); Mean Corpuscular Hemoglobin 23.8 pg (28.0-32.0); Mean Corpuscular Hgb Conc. 32.6 g/dL (32.0-36.0); Red Blood Cells 2.51 10^6/uL (4.5-5.90)
[2025-01-02 03:57] LABS: Anion Gap 9 (5-15); BUN/Creatinine Ratio 37.2 (10.0-20.0); Magnesium 1.9 mg/dL (1.6-2.6); Potassium 4.6 mmol/L (3.5-5.1); Sodium 136 mmol/L (136-145)
[2025-01-02 03:59] LABS: Phosphorus 2.9 mg/dL (2.4-5.1)
[2025-01-02 04:03] LABS: INR 1.59 (0.9-1.15); Partial Thromboplastin Time 37.6 SEC (24.5-34.5); Prothrombin Time 16.1 sec (9.3-11.8)
[2025-01-02 04:05] LABS: Band Neutrophils % (manual) 0; Basophils % (manual) 0 (0.0-2.0); Blast Cells 0; Eosinophils % (manual) 0 (0-7); Myelocytes % 0; Promyelocytes % 0; Reactive Lymphocytes 0
[2025-01-02 04:09] LABS: Lactic Acid w/Reflex 4.3 mmol/L (0.4-2.0)
[2025-01-02 04:15] LABS: Alanine Aminotransferase 89 U/L (7-40); Albumin 1.6 g/dL (3.2-4.8); Alkaline Phosphatase 153 U/L (46-116); Aspartate Aminotransferase 343 U/L (13-40); Bilirubin, Total 1.3 mg/dL (0.2-1.0); Blood Urea Nitrogen 54 mg/dL (9-23); Carbon Dioxide 20 mmol/L (20-31); Chloride 107 mmol/L (98-107); Glucose 111 mg/dL (74-106); Lipase 176 U/L (12-53); Total Protein 3.9 g/dL (5.7-8.2)
[2025-01-02] MEDS ORDERED: phytonadione 5 MG in SODIUM CHL 0.9% 50 ML IV ONE (04:30)
[2025-01-02] MEDS: ALBUMIN 25% 50 ML IV ONE (06:16)
[2025-01-02 06:51] LABS: Lymphocytes % (manual) 14 (10.0-50.0); Metamyelocytes % 1; Monocytes % (manual) 3 (0-12)
[2025-01-02 06:52] LABS: Anisocytosis Moderate
[2025-01-02 06:53] LABS: Hypochromia Moderate; Ovalocytes FEW; Target Cell FEW
[2025-01-02 06:54] LABS: Platelet Estimate Decreased
[2025-01-02] MEDS: phytonadione 5 MG in SODIUM CHL 0.9% 50 ML IV ONE ×2 (08:43→23:47)
[2025-01-02] MEDS: AZITHROMYCIN 500MG/ 250ML 250 ML IV SCH (10:00)
[2025-01-02] MEDS ORDERED: ENOXAPARIN SOD 40 MG/0.4 ML SYRINGE SC SCH (10:00)
[2025-01-02] MEDS: NOREPINEPHRINE 8 MG/250ML KIT 250 ML IV SCH (10:15)
[2025-01-02] MEDS: NOREPINEPHRINE 8 MG/250ML KIT 250 ML IV ONE (10:17)
[2025-01-02 12:26] LABS: Hemoglobin 7.2 g/dL (13.5-17.5)
[2025-01-02 12:29] LABS: Hematocrit 21.5 % (41.0-53.0)
[2025-01-02] MEDS: LINEZOLID 600MG/300ML 300 ML IV SCH (14:39)
--- NOTE | 2025-01-02 15:28 | CONS ---
Pharmacy Clinical Information: QTc = 501, consider d/c azithromycin or change to doxycycline DINA VILLALPANDO PHARMACIST Jan 02, 2025 15:27
--- NOTE | 2025-01-02 16:11 | DVHPNRES ---
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 Khoi Kellogg), presented to the ED with generalized weakness, decreased appetite for 2 weeks Per daughter and granddaughter, he has had difficulty ambulating, increasing weakness (noticed while rising from the toilet), and poor oral intake. He was recently diagnosed with UTI and prescribed Keflex, though he has not been compliant with home medications including glipizide, metformin, and mirtazapine. EMS was called when he was found hypotensive at home (SBP in 70s). Upon arrival, he was alert and oriented but continued to endorse generalized weakness. He also has a productive cough and was noted to have bilateral pleural effusions on imaging. CT abdomen/pelvis revealed a large pancreatic head mass (17.3 x 10.3 cm), ascites, liver heterogeneity suggesting metastasis, and peritoneal involvement. 01/01/25: the patient had an episode of hematemesis with approximately 150 cc of bright red blood around 4:20 p.m., Also he was having multiple episodes of melena during the day The patient was started on a Protonix drip, NPO, and transfusion support. He received 1 unit PRBCs at 1 p.m. on 12/31 and is planned to receive an additional unit for ongoing bleeding along with FFP and IV iron. Upgraded to ICU status 01/02/25: During the night, patient had multiple bloody stools and melena, hb came 6: total 4RBC, 2 FFP, albumin and vitamin K, am, the hb 7,2, patient was placed on levophed, port cath and midline will be use to infuse, case discussed extensively with the family, full code, 1 unit of cryoprecipitate PAST MEDICAL HISTORY: Hypertension Type 2 Diabetes Mellitus Liver cancer on chemotherapy Recent UTI PAST SURGICAL HISTORY: Abdominal surgery >30 years ago MEDICATIONS PRIOR TO ADMISSION: Glipizide Metformin Mirtazapine Keflex Objective vital signs Vital Sign Date Time Temp Pulse Resp B/P (MAP) Pulse Ox O2 Delivery O2 Flow Rate FiO2 01/02/25 15:45 94 22 123/67 (85) 100 01/02/25 14:00 Nasal Cannula* 2 01/02/25 12:21 97.8 97.8 Total Intake and Output 01/01/25 01/01/25 01/02/25 15:00 23:00 07:00 Intake Total 400 ml 460 ml 1650 ml Output Total 200 ml Balance 400 ml 260 ml 1650 ml medications Current Medications Medications Dose Ordered Sig/Go Route Start Time Stop Time Status Last Admin Dose Admin Piperacillin Sod/ Tazobactam Sod 100 ml @ 25 mls/hr Q8HR IV 12/31/24 21:00 01/02/25 06:00 25 MLS/HR Sodium Chloride 1,000 ml @ 100 mls/hr Q10H IV 12/31/24 13:15 01/02/25 10:55 100 MLS/HR Ondansetron HCl 4 mg Q4HP PRN IV 12/31/24 13:15 01/01/25 16:23 4 MG Acetaminophen 650 mg Q6HP PRN PO 12/31/24 13:15 Diagnostic Test (Pha) 1 strip ACHS 12/31/24 17:00 01/02/25 11:30 1 STRIP Insulin Human Regular ACHS SC 12/31/24 17:00 01/01/25 11:30 3 UNITS Dextrose 50 ml UD PRN IV 12/31/24 13:45 Iron Sucrose 110 ml @ 110 mls/hr DAILY@1200 IV 01/01/25 12:00 01/05/25 12:59 01/02/25 14:39 110 MLS/HR Pantoprazole Sodium 50 ml @ 10 mls/hr Q5H IV 01/01/25 16:30 01/02/25 10:54 10 MLS/HR Linezolid 300 ml @ 150 mls/hr Q12HR IV 01/02/25 10:00 01/02/25 14:39 150 MLS/HR Azithromycin 250 ml @ 125 mls/hr DAILY IV 01/02/25 10:00 Norepinephrine Bitartrate 250 ml @ 3.75 mls/hr Q24H IV 01/02/25 10:15 Examination General: NAD, AAOx3 HEENT: No icterus, pallor; hematemesis Lungs: Clear to auscultation bilaterally Heart: RRR, no murmurs Abdomen: Soft, non-distended, +BS, no tenderness; fresh blood with melena per rectum Extremities: No edema Skin: No rash or bruising laboratory and microbiology Laboratory Tests 01/02/25 12:00 01/02/25 03:11 Test 01/02/25 03:11 Range/Units Serum Glucose 111 H 74-106 mg/dL Microbiology Date/Time Source Procedure Growth Status 01/01/25 06:55 Nose MRSA Screen - Final Complete 12/31/24 19:44 Voided Urine Urine Culture - Preliminary Resulted 12/31/24 10:55 Blood Blood Culture - Preliminary NO GROWTH AFTER 48 HOURS OF INCUBATION. Resulted Problem List/Assessment/Plan Problem List/Assessment/Plan ASSESSMENT & PLAN: Upgraded to ICU status GI: #Hemorrhagic shock # Upper and lower GI Bleed likely secondary to malignancy/portal hypertension/chemotherapy enterocolitis # Anemia acute blood loss anemia from GI bleed. titrate levophed Patient had melena and hematemesis multiple episodes On IV PPI drip. GI consulted. Transfusion with 4 PRBCs, 2 FFP and 1 cryoprecipitates Albumin and vitamin K NPO IV fluids. Iron IV IMAGING: CT Abd/Pelvis (12/31): Large pancreatic head mass (17.3 x 10.3 cm), liver heterogeneity, peritoneal involvement, small ascites, bilateral pleural effusions (left > right), no intra-abdominal lymphadenopathy Last EGD: August 2024 No colonoscopy on file #Hepatocellular carcinoma stage 3a #Transaminitis #Hyperbilirubinemia #Pancreatic Mass? newly identified, large mass being followed by Dr. Kellogg at [facility] ([place]), last chemo 12/11. Patient is not stable enough for further images #Ascites likely malignant. Monitor volume status Not procedure for now due to bleeding Pulmonary #Sepsis: #Acute respiratory failure #PNA? gram neg/ gram + #bilateral pleural effusions (left > right) possible aspiration Zosyn, linezolid and azithromycin IV O2 2 LT Endocrinology #Type 2 Diabetes Mellitus NPO status Sliding scale insulin. #HTN stable monitor BP. Renal #Hyponatremia, mild #Hyperkalemia, resolved #Hypomagnesemia, mild 1.8 fu lab tomorrow am #OSKAR, vasomotor mediated iv fluids #UTI (recent) Completed Keflex at home Zosyn IV Goals of care discussed with the patient and his for 20 minutes; full code 160 minutes of critical care time Case discussed with Dr Matos Plan discussed with: Patient, Other (rn) My Orders My Orders Orders - LINO SHERMAN Procedure Category Date Status Time Transfer Orders XFER 01/01/25 Transmitted 16:21 Npo (Nothing By DIET 01/01/25 Transmitted Mouth) Diet Dinner Pantoprazole PHA 01/01/25 In Process 40mg/50ml Ns Ae 16:30 Apply Barrier Cream LUDWIG 01/01/25 In Process 11:15 Hemoglobin & LAB 01/02/25 Logged Hematocrit 18:00 Chest Xray 1 View XY 01/02/25 Resulted 04:00 Notify Provider NOTICE 01/02/25 Transmitted Malnutrition 07:53 Nutritional NOURISH 01/02/25 Transmitted Supplements 07:53 Dietary NOTICE 01/02/25 Transmitted Recommendations 07:53 *Consult CONS 01/02/25 Transmitted / 07:56 Ok To Access ORDERS 01/02/25 Transmitted Harish-Cath 09:04 Insert Midline ORDERS 01/02/25 Transmitted 09:04 Frozen Plasma BBK 01/02/25 Logged 09:10 Transfer Orders XFER 01/02/25 Transmitted 10:36 Cryoprecipitate BBK 01/02/25 Logged 15:48 Dietary Evaluation Review Recommendations by RD: Protein Supplementation Comments: 1) If patient remains NPO > 7 days, consider EN/TPN to meet at least 75% daily estimated needs 2) Consider Pro-Stat @ 30 mL qd d/t increased protein needs 3) Initiate vitamin C @ 500 mg bid and zinc sulfate @ 220 mg qd for 7-10 days 4) Initiate multivitamin @ 1 tb qd 5) Advance to 60g CCHO low-fat diet when medically feasible, per SHOE REPAIRER approval 6) F/u with gastroenterology, oncology, and nephrology 7) Continue to monitor I&O, labs, and skin integrity Expected Outcomes/Goals: 1) Patient to receive nutritional support within 7 days 2) wound and labs to improve 3) diet to advance 4) f/u in 2-3 days Date of Service: Jan 02, 2025 Billing Provider: HYACINTH MATOS MD Common Visit Codes: [id number] CARE 30-74 MIN LINO SHERMAN Jan 02, 2025 16:10 HYACINTH MATOS MD Jan 02, 2025 21:50
[2025-01-02 18:47] LABS: Hematocrit 19.3 % (41.0-53.0)
[2025-01-02 18:51] LABS: Hemoglobin 6.2 g/dL (13.5-17.5)
--- NOTE | 2025-01-02 22:17 | DVHPN2 ---
Progress Note - Dictate Date Seen: Jan 02, 2025 Has the PT tested + for MRSA If YES, has PT been informed?: No Medical Necessity Reason Pt with a Central, PICC or Fol: No Subjective Patient had one episode of hematemesis yesterday about 150 mL and he was transferred to ICU Since then the patient has not had any further upper GI bleed Patient has had continued episodes of multiple gelatinous bright red blood per rectum 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 Patient may also be oozing from his liver mass as that could bleed into the GI tract Patient has received a total of 4 units PRBC and 2 of FFP and one cryoprecipitate Patient also received some vitamin K x1 dose this morning vital signs Vital Sign Date Time Temp Pulse Resp B/P (MAP) Pulse Ox O2 Delivery O2 Flow Rate FiO2 01/02/25 22:00 22 99 Nasal Cannula* 2 01/02/25 22:00 97 109/56 (73) 01/02/25 21:36 97.8 97.8 Total Intake and Output 01/01/25 01/01/25 01/02/25 15:00 23:00 07:00 Intake Total 400 ml 460 ml 1650 ml Output Total 200 ml Balance 400 ml 260 ml 1650 ml medications Current Medications Medications Dose Ordered Sig/Go Route Start Time Stop Time Status Last Admin Dose Admin Piperacillin Sod/ Tazobactam Sod 100 ml @ 25 mls/hr Q8HR IV 12/31/24 21:00 01/02/25 16:11 25 MLS/HR Sodium Chloride 1,000 ml @ 100 mls/hr Q10H IV 12/31/24 13:15 01/02/25 21:14 100 MLS/HR Ondansetron HCl 4 mg Q4HP PRN IV 12/31/24 13:15 01/01/25 16:23 4 MG Acetaminophen 650 mg Q6HP PRN PO 12/31/24 13:15 Diagnostic Test (Pha) 1 strip ACHS 12/31/24 17:00 01/02/25 16:47 1 STRIP Insulin Human Regular ACHS SC 12/31/24 17:00 01/01/25 11:30 3 UNITS Dextrose 50 ml UD PRN IV 12/31/24 13:45 Iron Sucrose 110 ml @ 110 mls/hr DAILY@1200 IV 01/01/25 12:00 01/05/25 12:59 01/02/25 14:39 110 MLS/HR Pantoprazole Sodium 50 ml @ 10 mls/hr Q5H IV 01/01/25 16:30 01/02/25 16:10 10 MLS/HR Linezolid 300 ml @ 150 mls/hr Q12HR IV 01/02/25 10:00 01/02/25 14:39 150 MLS/HR Norepinephrine Bitartrate 250 ml @ 3.75 mls/hr Q24H IV 01/02/25 10:15 Doxycycline Hyclate 100 ml @ 50 mls/hr Q12H IV 01/02/25 22:00 laboratory and microbiology Laboratory Tests 01/02/25 18:22 01/02/25 03:11 Test 01/02/25 03:11 Range/Units Serum Glucose 111 H 74-106 mg/dL Problems(with codes): (1) GI bleed (2) GI bleed requiring more than 4 units of blood in 24 hours, ICU, or surgery (3) Elevated lactic acid level (4) Liver cancer (5) Sepsis (6) Leukocytosis (7) Anemia (8) Pneumonia Prognosis Plan Continue IV Protonix drip Transfuse two more units PRBC 2 units of FFP; keep NPO Patient is on low-dose Levophed Prognosis remains guarded Get a CTA angiogram I will be standing by for a possible endoscopy once medically stabilized Patient is not stable at this time for endoscopic workup or a bowel prep for colonoscopy Dietary Evaluation Review Recommendations by RD: Protein Supplementation Comments: 1) If patient remains NPO > 7 days, consider EN/TPN to meet at least 75% daily estimated needs 2) Consider Pro-Stat @ 30 mL qd d/t increased protein needs 3) Initiate vitamin C @ 500 mg bid and zinc sulfate @ 220 mg qd for 7-10 days 4) Initiate multivitamin @ 1 tb qd 5) Advance to 60g CCHO low-fat diet when medically feasible, per [employer]STUME [employer]KER approval 6) F/u with gastroenterology, oncology, and nephrology 7) Continue to monitor I&O, labs, and skin integrity Expected Outcomes/Goals: 1) Patient to receive nutritional support within 7 days 2) wound and labs to improve 3) diet to advance 4) f/u in 2-3 days Plan discussed with: Patient, Other (ICU Nurse and Dr Dunaway) TENA GUILLEN MD Jan 02, 2025 22:17
--- NOTE | 2025-01-02 23:29 | DVHINCON2 ---
Date of service: Jan 02, 2025 Referring Physician Tawanna Dunaway MD Reason for Consultation Acute hypoxic respiratory failure and hypovolemic shock. History of Present Illness A 79-year-old man with past medical history of hypertension, diabetes type 2, and liver cancer, on chemo at [facility] in [place], who presented to ED on 12/31/24 with c/o generalized weakness and decreased appetite x1 week. Family report pt has not been walking for the last week and requesting wheelchair upon discharge. He normally uses a front-wheel walker when he does ambulate. Family report he was diagnosed recently with a UTI. Denied any chest pain, shortness of breath, fever, chills, dizziness, N/V/D or other symptoms. Pt has been getting 3 weeks of chemo for liver cancer. He was admitted for further care, and pulmonary consultation is requested for evaluation and management of acute hypoxic respiratory failure and hypovolemic shock. Review of Systems: 14-point review of systems negative unless otherwise noted above. Past Medical History: Hypertension, diabetes mellitus type 2, and liver cancer, on chemotherapy. Past Surgical History: Abdominal surgery 30 years ago Medications: Reviewed. Allergies: No known drug allergies. Family History: No family history of premature CAD. No family history of lung disorders. Social History: Nonsmoker. No alcohol or illicit drug use. Family History: Patient reports no known family medical history. Allergies: Coded Allergies: NO KNOWN ALLERGIES (Unverified , 12/31/24) Home Meds Reported Medications Cephalexin (KEFLEX CAPSULE) 250 Mg Cp, 500 MG PO QID, CAP 01/01/25 Benzonatate (Benzonatate) 100 Mg Cap, 100 CAP PO TID PRN for FOR COUGH, #30 CAP 01/01/25 Metformin Hydrochloride (Metformin Hcl) 500 Mg Tab, 1000 MG PO BIDBRS for 30 Days, MG 01/01/25 Glipizide (Glipizide) 10 Mg Tab, 10 MG PO BID for 30 Days, MG 01/01/25 Losartan Potassium (Losartan Potassium) 25 Mg Tab, 1 TAB PO DAILY 12/31/24 Mirtazapine (Mirtazapine Oral Disintegrating Tablet) 15 Mg Tab, 1 TAB PO 12/31/24 Current Medications Current Medications Medications (Trade) Dose Ordered Sig/Go Route PRN Reason Start Time Stop Time Status Last Admin Enoxaparin Sodium (Lovenox) 40 mg DAILY SC 01/02/25 10:00 01/01/25 16:28 DC Linezolid 300 ml @ 150 mls/hr Q12HR IV 01/02/25 10:00 01/02/25 22:44 Azithromycin 250 ml @ 125 mls/hr DAILY IV 01/02/25 10:00 01/02/25 21:54 DC Norepinephrine Bitartrate 250 ml @ 3.75 mls/hr Q24H IV 01/02/25 10:15 01/02/25 22:59 Doxycycline Hyclate 100 ml @ 50 mls/hr Q12H IV 01/02/25 22:00 Vital Signs Vital Signs Date Time Temp Pulse Resp B/P (MAP) Pulse Ox O2 Delivery O2 Flow Rate FiO2 01/02/25 22:00 22 99 Nasal Cannula* 2 28 01/02/25 22:00 97 109/56 (73) 01/02/25 21:36 97.8 97.8 Physical Exam Gen.: Patient lying in bed in no apparent distress. On supplemental oxygen. Head: Normocephalic, atraumatic. Eyes: EOMI/PERRLA. Ears: Normal hearing. Normal anatomy. Neck/trachea: Trachea midline, supple. Nose: Normal external anatomy. Mouth: Moist mucous membranes. Chest: Decreased air entry bilaterally. No wheezing or rhonchi. Cardiovascular: Positive S1, positive S2. Regular rate and rhythm. Abdomen: Positive bowel sounds in all 4 quadrants. Soft, non-tender, non-dis tended. : Deferred. Rectal: Deferred. Skin: Warm, dry. Intact. Extremities: 2+ radial pulses bilaterally. No lower extremity edema. Neuro: Awake, alert, oriented x3. No gross motor or sensory deficits. Cranial nerves II through XII intact. Gait not assessed. Labs/Diagnostic Data Labs Test 01/02/25 22:58 01/02/25 18:22 01/02/25 12:00 01/02/25 03:11 Range/Units POC Glucose 142 H 70-106 mg/dl Hemoglobin 6.2 *L 13.5-17.5 g/dL Hematocrit 19.3 #L 41.0-53.0 % Fibrinogen 130 L 177-375 mg/dL Lactic Acid Level 4.2 *H 0.4-2.0 mmol/L Ammonia < 10 L 11-32 umol/L White Blood Count 8.9 # 4.4-10.8 10^3/uL Red Blood Count 2.51 L 4.5-5.90 10^6/uL Mean Corpuscular Volume 73.0 L 80.0-100.0 fL Mean Corpuscular Hemoglobin 23.8 L 28.0-32.0 pg Mean Corpuscular Hemoglobin Concent 32.6 32.0-36.0 g/dL Red Cell Distribution Width 23.0 H 11.8-14.3 % Platelet Count 130 L 140-450 10^3/uL Mean Platelet Volume 8.9 6.9-10.8 fL Neutrophils (%) (Auto) 37.0-80.0 % Lymphocytes (%) (Auto) 10.0-50.0 % Monocytes (%) (Auto) 0.0-12.0 % Basophils (%) (Auto) 0.0-2.0 % Neutrophils # (Auto) 1.6-8.6 10 ^3/uL Lymphocytes # (Auto) 0.4-5.4 10 ^3/uL Monocytes # (Auto) 0-1.3 10 ^3/uL Differential Total Cells Counted 100.0 100 Neutrophils % (Manual) 82 H 37.0-80.0 Band Neutrophils % (Manual) 0 Lymphocytes % (Manual) 14 10.0-50.0 Monocytes % (Manual) 3 0-12 Eosinophils % (Manual) 0 0-7 Basophils % (Manual) 0 0.0-2.0 Metamyelocytes % (manual) 1 Myelocytes % (Manual) 0 Promyelocytes % (Manual) 0 Blast Cells % (Manual) 0 Nucleated Red Blood Cells 1.0 % Reactive Lymphocytes 0 Platelet Estimate Decreased Hypochromasia (manual) Moderate Poikilocytosis (manual) Slight Anisocytosis (manual) Moderate Microcytosis Slight Target Cells Few Ovalocytes Few [place] Cells Few Schistocytes Few Prothrombin Time 16.1 H 9.3-11.8 sec Prothrombin Time INR 1.59 H 0.9-1.15 Activated Partial Thromboplast Time 37.6 H 24.5-34.5 SEC Sodium Level 136 136-145 mmol/L Potassium Level 4.6 3.5-5.1 mmol/L Chloride Level 107 98-107 mmol/L Carbon Dioxide Level 20 20-31 mmol/L Anion Gap 9 5-15 Blood Urea Nitrogen 54 H 9-23 mg/dL Creatinine 1.45 H 0.700-1.30 mg/dL Glomerular Filtration Rate Calc 49 >90 mL/min BUN/Creatinine Ratio 37.2 H 10.0-20.0 Serum Glucose 111 H 74-106 mg/dL Calcium Level 8.0 L 8.7-10.4 mg/dL Phosphorus Level 2.9 2.4-5.1 mg/dL Magnesium Level 1.9 1.6-2.6 mg/dL Total Bilirubin 1.3 H 0.2-1.0 mg/dL Aspartate Amino Transferase (AST) 343 H 13-40 U/L Alanine Aminotransferase (ALT) 89 H 7-40 U/L Alkaline Phosphatase 153 H 46-116 U/L Total Protein 3.9 L 5.7-8.2 g/dL Albumin 1.6 L 3.2-4.8 g/dL Lipase 176 H 12-53 U/L Test 01/01/25 09:23 12/31/24 21:52 12/31/24 19:44 12/31/24 11:28 Range/Units Eosinophils (%) (Auto) 1.4 0.0-7.0 % Eosinophils # (Auto) 0.1 0-0.8 10 ^3/uL Basophils # (Auto) 0.2 0-0.2 10 ^3/uL Iron Level 11 L 65-175 ug/dL Total Iron Binding Capacity 235 L 250-425 ug/dL Percent Iron Saturation 4.7 L 20-55 % Ferritin 57.7 22-322 ng/mL Thyroid Stimulating Hormone (TSH) 2.31 0.55-4.78 uIU/mL Stool Occult Blood Positive Negative Stool Occult Blood Sample #3 Negative Urine Color Yellow Yellow Urine Clarity Turbid H Clear Urine pH 5.5 5.0-9.0 Urine Specific [place] 1.022 1.001-1.035 Urine Protein 1+ H Negative Urine Ketones 1+ H Negative Urine Blood Trace H Negative /uL Urine Nitrite Negative Negative Urine Bilirubin Negative Negative Urine Urobilinogen Normal Negative mg/dL Urine Leukocyte Esterase Negative Negative /uL Urine RBC 3 0 - 3 /hpf Urine Microscopic WBC 9 H 0-3 /HPF Urine Squamous Epithelial Cells Few <5 /hpf Urine Bacteria None seen None Seen /hpf Urine Mucus Few None Seen Urine Glucose Normal Normal mg/dL Hemoglobin A1c 5.7 <5.7 % A1C B-Type Natriuretic Peptide 261.59 0-100 pg/mL Microbiology Date/Time Source Procedure Growth Status 01/01/25 06:55 Nose MRSA Screen - Final Complete 12/31/24 19:44 Voided Urine Urine Culture - Preliminary Resulted 12/31/24 10:55 Blood Blood Culture - Preliminary NO GROWTH AFTER 48 HOURS OF INCUBATION. Resulted Assessment Impression: Acute hypoxic respiratory failure Dependence on supplemental oxygen Acute GI hemorrhage Anemia 2/2 GI hemorrhage Hypovolemic shock. Plan: Supplemental oxygen Titrate to keep O2 sats above 92%. S/p 2 units PRBC + 1 unit FFP Monitor hemoglobin GI recommendations appreciated. Albumin Protonix drip On pressors for hemodynamic support Levophed 4 mcg/min Titrate to keep mean arterial pressure greater than 65 mmHg Continue antibiotics IV fluids at 100 ml/hr. Monitor renal function. Monitor electrolytes. Supplement as necessary. Monitor ins and outs. DVT prophylaxis. Prognosis: Poor given patient's multiple co-morbidities. Condition: Critical Rest of plan per hospitalist and other consultants. A total of 35 minutes of critical care time was spent reviewing the patient record, examining the patient, making a diagnostic and therapeutic plan, discussing this plan with the medical personnel, following up on diagnostic studies and following the patient for clinical stability excluding any and all procedures. At least 50% of this time was spent in direct, [id number] contact. Thank you Dr. Dunaway for allowing me to participate in this patient's care. Further recommendations will depend on the patient's clinical course. Please do not hesitate to contact me if you have any questions or concerns. This medical document was created using an electronic medical record system with [employer] dictation system. Although these documentations are being carefully reviewed, there may still be some phonetic and typographical changes. The errors are purely typographical, due to imperfection on the software program, and do not reflect any compromise in the patient's medical care. Plan discussed with: Patient, Other (PARI Shore/Dr. Dunaway) LAUREN GUPTA MD Jan 02, 2025 23:29
[2025-01-02] MEDS: phytonadione 1 ML ONE (23:41)
[2025-01-02] MEDS: DOXYCYCLINE 100MG/100ML 100 ML IV SCH (23:49)
[2025-01-03] VITALS (101 sets, daily range): BP systolic 90–153; BP diastolic 49–107; PULSE 72–101; RESP 12–29; TEMP 97.1–98.2; O2SAT 90–100
--- NOTE | 2025-01-03 01:28 | DVHSR ---
APPROVED REPORT EXAM: LIMITED Two-dimensional and M-mode echocardiogram with Doppler and color Doppler. Blood Pressure: 130/80 mmHg INDICATION Rule Out CHF RISK FACTORS Height: 5' 5", Weight: 130 DIMENSIONS LVDd3.6 (3.8-5.7cm)LA (2D) (1.9-4.0cm)Aortic Root (2.0-3.7cm) LVDs2.6 (2.5-4.0cm)LA (MM) (1.9-4.0cm)Aortic Cusp Exc (1.5-2.0cm) EF (%) 54.0 (55-70%)Rt. Atrium (1.9-4.0cm)Asc. Aorta cm IVSd1.1 (0.7-1.1cm)RV (D) (1.8-2.4cm) PWd1.1 (0.7-1.1cm) Mitral Valve MitralMitral Stenosis E wave0.40m/sMV Mean GR.mmHg A wave0.60m/sMV Peak GR.mmHg E/A ratio0.72D MVAcm2 Other Information Quality : Technically LimitedRhythm : Technically limited study due to body habitus. Conclusion NORMAL LV EF OF 65% MODERATE DEGREE LVH AND MODERATE DEGREE LV DIASTOLIC DYSFUNCTION HEAVILY CALCIFIED AORTIC LEAFLETS SUSPICIOUS OF MODERATE DEGREE AORTIC STENOSIS GRADIENT ACROSS AORTIC VALVE IS NOT EVALUATED NORMAL MV,TV AND PV NO EFFUSION
[2025-01-03 04:43] LABS: Anion Gap 12 (5-15); Sodium 138 mmol/L (136-145)
[2025-01-03 04:57] LABS: Blood Urea Nitrogen 58 mg/dL (9-23); Carbon Dioxide 15 mmol/L (20-31); Chloride 111 mmol/L (98-107); Glucose 166 mg/dL (74-106); Lactic Acid w/Reflex 5.3 mmol/L (0.4-2.0)
[2025-01-03 04:58] LABS: Alanine Aminotransferase 150 U/L (7-40); Albumin 1.8 g/dL (3.2-4.8); Alkaline Phosphatase 123 U/L (46-116); Aspartate Aminotransferase 701 U/L (13-40); Bilirubin, Total 1.4 mg/dL (0.2-1.0); Calcium 7.7 mg/dL (8.7-10.4); Potassium 5.6 mmol/L (3.5-5.1); Total Protein 3.9 g/dL (5.7-8.2)
[2025-01-03 05:44] LABS: INR 1.59 (0.9-1.15); Partial Thromboplastin Time 42.2 SEC (24.5-34.5); Prothrombin Time 16.1 sec (9.3-11.8)
[2025-01-03 05:46] LABS: Magnesium 1.8 mg/dL (1.6-2.6)
[2025-01-03 05:47] LABS: Phosphorus 4.8 mg/dL (2.4-5.1)
[2025-01-03] MEDS: phytonadione 5 MG in SODIUM CHL 0.9% 50 ML IV ONE (06:09)
[2025-01-03] MEDS: phytonadione 1 ML ONE (06:10)
[2025-01-03] MEDS: MAGNESIUM SULFATE 1GM/100ML 100 ML IV SCH (08:18)
[2025-01-03] MEDS: FUROSEMIDE 40 MG/4 ML VIAL IV ONE (08:18)
[2025-01-03] MEDS ORDERED: CLINIMIX PER PHARMACY 0 ML IV SCH (09:00)
[2025-01-03 09:35] LABS: Basophils # (auto) 0.1 10 ^3/uL (0-0.2); Basophils % (auto) 0.5 % (0.0-2.0); Eosinophils # (auto) 0 10 ^3/uL (0-0.8); Eosinophils % (auto) 0.3 % (0.0-7.0); Hematocrit 27.2 % (41.0-53.0); Lymphocytes # (auto) 2.7 10 ^3/uL (0.4-5.4); Lymphocytes % (auto) 24.1 % (10.0-50.0); Mean Corpuscular Hemoglobin 27.8 pg (28.0-32.0); Mean Corpuscular Hgb Conc. 33.2 g/dL (32.0-36.0); Mean Corpuscular Volume 83.8 fL (80.0-100.0); Monocytes # (auto) 1.1 10 ^3/uL (0-1.3); Monocytes % (auto) 10.2 % (0.0-12.0); Neutrophils # (auto) 7.3 10 ^3/uL (1.6-8.6); Neutrophils % (auto) 64.9 % (37.0-80.0); Nucleated Red Blood Cells % 2.7 %; Platelet Count (auto) 125 10^3/uL (140-450); Red Blood Cells 3.24 10^6/uL (4.5-5.90); Red Cell Distribution Width 19.8 % (11.8-14.3); White Blood Cell 11.2 10^3/uL (4.4-10.8)
--- NOTE | 2025-01-03 10:09 | DVHPN2 ---
Subjective Feels okay. Some abdominal pain Reviewed: Care Plan, H&P, Labs, Medications, Previous Orders, Radiology, Other (Consultants) Changes from previous H/P or p: No Changes Respiratory: Cough Objective Vitals Vital Signs Date Time Temp Pulse Resp B/P (MAP) Pulse Ox O2 Delivery O2 Flow Rate FiO2 01/03/25 08:18 126/72 01/03/25 06:45 89 20 98 01/03/25 06:00 Nasal Cannula* 2 28 01/03/25 05:50 97.7 97.7 Intake/Output Intake and Output 01/03/25 06:59 Intake Total 8487.50 ml Output Total 300 ml Balance 8187.50 ml Intake Oral 0 ml IV Total 5579.50 ml Blood Product 1325 ml Other 1583 ml Urine/Stool Mix 300 ml # Voids 5 # Bowel Movements 10 General Appearance: Alert, Oriented X3, Cooperative, No acute distress, Other (Cachectic) HEENT: Atraumatic Lungs: Clear to auscultation Cardiovascular: Regular rate Abdomen: Other (Some abdominal mid gastric tenderness) Extremities: Other (3+ bilateral lower extremities edema) Medications Current Medications Medications Dose Ordered Sig/Go Route Start Time Stop Time Status Last Admin Dose Admin Piperacillin Sod/ Tazobactam Sod 100 ml @ 25 mls/hr Q8HR IV 12/31/24 21:00 01/03/25 06:09 25 MLS/HR Sodium Chloride 1,000 ml @ 100 mls/hr Q10H IV 12/31/24 13:15 01/02/25 21:14 100 MLS/HR Ondansetron HCl 4 mg Q4HP PRN IV 12/31/24 13:15 01/01/25 16:23 4 MG Acetaminophen 650 mg Q6HP PRN PO 12/31/24 13:15 Diagnostic Test (Pha) 1 strip ACHS 12/31/24 17:00 01/03/25 05:42 1 STRIP Insulin Human Regular ACHS SC 12/31/24 17:00 01/03/25 05:43 3 UNITS Dextrose 50 ml UD PRN IV 12/31/24 13:45 Iron Sucrose 110 ml @ 110 mls/hr DAILY@1200 IV 01/01/25 12:00 01/05/25 12:59 01/02/25 14:39 110 MLS/HR Pantoprazole Sodium 50 ml @ 10 mls/hr Q5H IV 01/01/25 16:30 01/03/25 09:03 10 MLS/HR Linezolid 300 ml @ 150 mls/hr Q12HR IV 01/02/25 10:00 01/02/25 22:44 150 MLS/HR Norepinephrine Bitartrate 250 ml @ 3.75 mls/hr Q24H IV 01/02/25 10:15 01/02/25 22:59 15 MLS/HR Doxycycline Hyclate 100 ml @ 50 mls/hr Q12H IV 01/02/25 22:00 01/02/25 23:49 50 MLS/HR Amino Acids 0 ml @ 0 mls/hr PER PHARMACY IV 01/03/25 09:00 Octreotide Acetate 500 mcg/ Sodium Chloride 100 ml @ 10 mls/hr Q10H IV 01/03/25 09:00 Laboratory Results Laboratory Tests 01/03/25 04:15 01/03/25 09:02 Chemistry Test 01/03/25 04:15 Albumin 1.8 g/dL (3.2-4.8) L Calcium Level 7.7 mg/dL (8.7-10.4) L Magnesium Level 1.8 mg/dL (1.6-2.6) Phosphorus Level 4.8 mg/dL (2.4-5.1) Total Protein 3.9 g/dL (5.7-8.2) L Coagulation Test 01/02/25 12:00 01/03/25 04:15 Fibrinogen 130 mg/dL (177-375) L Prothrombin Time 16.1 sec (9.3-11.8) H Prothrombin Time INR 1.59 (0.9-1.15) H Activated Partial Thromboplast Time 42.2 SEC (24.5-34.5) H LFT Test 01/03/25 04:15 Alanine Aminotransferase (ALT) 150 U/L (7-40) H Alkaline Phosphatase 123 U/L (46-116) H Aspartate Amino Transferase (AST) 701 U/L (13-40) H Total Bilirubin 1.4 mg/dL (0.2-1.0) H Urinalysis Test 12/31/24 19:44 Urine Color Yellow (Yellow) Urine Clarity Turbid (Clear) H Urine pH 5.5 (5.0-9.0) Urine Specific [place] 1.022 (1.001-1.035) Urine Protein 1+ (Negative) H Urine Ketones 1+ (Negative) H Urine Blood Trace /uL (Negative) H Urine Nitrite Negative (Negative) Urine Bilirubin Negative (Negative) Urine Urobilinogen Normal mg/dL (Negative) Urine Leukocyte Esterase Negative /uL (Negative) Urine RBC 3 /hpf (0 - 3) Urine Microscopic WBC 9 /HPF (0-3) H Urine Squamous Epithelial Cells Few /hpf (<5) Urine Bacteria None seen /hpf (None Seen) Urine Mucus Few (None Seen) Urine Glucose Normal mg/dL (Normal) Microbiology Microbiology Date/Time Source Procedure Growth Status 01/01/25 06:55 Nose MRSA Screen - Final Complete 12/31/24 19:44 Voided Urine Urine Culture - Preliminary Resulted 12/31/24 10:55 Blood Blood Culture - Preliminary NO GROWTH AFTER 48 HOURS OF INCUBATION. Resulted Assessment/Plan Assessment/Plan Hemorrhagic shock secondary to GI bleed Severe anemia/stable today after blood transfusion Coagulopathy Hepatocellular multifocal carcinoma Pancreatic mass/likely new Bilateral pneumonia and UTI with Sepsis Ascites Diabetes Hypertension Hyponatremia Acute kidney injury Plan: Transfuse PRBC as needed. FFP. Vitamin K. monitor blood pressure and he was vasopressors as necessary. Repeat labs and x-ray. Further plan per orders. Total critical care time 45 minutes Plan discussed with: Patient, Other (Nursing) My Orders Orders - HYACINTH MATOS MD Procedure Category Date Status Time Norepinephrine 8 PHA 01/02/25 In Process Mg/250ml Kit 10:15 Insert/Manage Urinary LUDWIG 01/02/25 In Process Catheter 10:15 Doxycycline PHA 01/02/25 In Process 100mg/100ml 22:00 Date of Service: Jan 03, 2025 Billing Provider: HYACINTH MATOS MD Common Visit Codes: 21675-NATBDTST CARE 30-74 MIN HYACINTH MATOS MD Jan 03, 2025 10:09
[2025-01-03] MEDS: OCTREOTIDE ACETATE 500 MCG in SODIUM CHL 0.9% 99 ML IV SCH (10:35)
[2025-01-03 11:15] LABS: Potassium 4.6 mmol/L (3.5-5.1)
[2025-01-03 11:16] LABS: Anion Gap 11 (5-15)
[2025-01-03 11:18] LABS: Calcium 7.9 mg/dL (8.7-10.4); Carbon Dioxide 18 mmol/L (20-31); Chloride 107 mmol/L (98-107); Sodium 136 mmol/L (136-145)
[2025-01-03 11:22] LABS: BUN/Creatinine Ratio 28.6 (10.0-20.0); Magnesium 1.8 mg/dL (1.6-2.6)
[2025-01-03 11:23] LABS: Blood Urea Nitrogen 58 mg/dL (9-23); Glucose 155 mg/dL (74-106)
--- NOTE | 2025-01-03 15:19 | DVHPN2 ---
Progress Note - Dictate Date Seen: Jan 03, 2025 Has the PT tested + for MRSA If YES, has PT been informed?: No Medical Necessity Reason Pt with a Central, PICC or Fol: No Subjective Patient seen at bedside sleeping comfortably Patient is receiving an IV iron infusion Patient's lower GI bleed appears to be slowing down the small smear this morning Patient had three bowel movements last night mixed with some clots and old blood Hemoglobin has improved to 9.0 this morning No further episodes of nausea vomiting or hematemesis vital signs Vital Sign Date Time Temp Pulse Resp B/P (MAP) Pulse Ox O2 Delivery O2 Flow Rate FiO2 01/03/25 14:45 79 19 105/62 (76) 96 01/03/25 14:00 Nasal Cannula* 2 28 01/03/25 12:00 97.1 97.1 Total Intake and Output 01/02/25 01/02/25 01/03/25 15:00 23:00 07:00 Intake Total 1328.00 ml 1795.00 ml 4038.25 ml Output Total 200 ml 100 ml Balance 1328.00 ml 1595.00 ml 3938.25 ml medications Current Medications Medications Dose Ordered Sig/Go Route Start Time Stop Time Status Last Admin Dose Admin Piperacillin Sod/ Tazobactam Sod 100 ml @ 25 mls/hr Q8HR IV 12/31/24 21:00 01/03/25 15:11 25 MLS/HR Sodium Chloride 1,000 ml @ 100 mls/hr Q10H IV 12/31/24 13:15 01/02/25 21:14 100 MLS/HR Ondansetron HCl 4 mg Q4HP PRN IV 12/31/24 13:15 01/01/25 16:23 4 MG Acetaminophen 650 mg Q6HP PRN PO 12/31/24 13:15 Diagnostic Test (Pha) 1 strip ACHS 12/31/24 17:00 01/03/25 12:04 1 STRIP Insulin Human Regular ACHS SC 12/31/24 17:00 01/03/25 05:43 3 UNITS Dextrose 50 ml UD PRN IV 12/31/24 13:45 Iron Sucrose 110 ml @ 110 mls/hr DAILY@1200 IV 01/01/25 12:00 01/05/25 12:59 01/03/25 14:17 110 MLS/HR Pantoprazole Sodium 50 ml @ 10 mls/hr Q5H IV 01/01/25 16:30 01/03/25 15:13 10 MLS/HR Linezolid 300 ml @ 150 mls/hr Q12HR IV 01/02/25 10:00 01/03/25 10:32 150 MLS/HR Norepinephrine Bitartrate 250 ml @ 3.75 mls/hr Q24H IV 01/02/25 10:15 01/02/25 22:59 15 MLS/HR Doxycycline Hyclate 100 ml @ 50 mls/hr Q12H IV 01/02/25 22:00 01/03/25 10:30 50 MLS/HR Amino Acids 0 ml @ 0 mls/hr PER PHARMACY IV 01/03/25 09:00 Octreotide Acetate 500 mcg/ Sodium Chloride 100 ml @ 10 mls/hr Q10H IV 01/03/25 09:00 01/03/25 10:35 10 MLS/HR Amino Acids/ Electrolytes/ Dextrose 2,000 ml @ 41 mls/hr DAILY@2200 IV 01/03/25 22:00 objective General Appearance: Alert, Oriented X3, Cooperative, No acute distress, thin and cachectic HEENT: Atraumatic Lungs: Clear to auscultation Cardiovascular: Regular rate and rhythm Abdomen: Other nontender Extremities: 2+ pedal edema Neuro appears to be nonfocal laboratory and microbiology Laboratory Tests 01/03/25 09:02 Test 01/03/25 09:02 Range/Units Serum Glucose 155 H 74-106 mg/dL Problems(with codes): (1) GI bleed requiring more than 4 units of blood in 24 hours, ICU, or surgery (2) Elevated lactic acid level (3) GI bleed (4) Liver cancer (5) Sepsis (6) Leukocytosis (7) Anemia Prognosis A/P 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 Patient may also be oozing from his liver mass as that could bleed into the GI tract Patient has received a total of 6 units PRBC and 2 of FFP and one cryoprecipitate Patient also received some vitamin K x3 doses Currently he is receiving IV iron infusion Patient still has mild coagulopathy His lactic acidosis is improving slightly Continue supportive care IV Protonix drip Patient is also currently on IV octreotide drip We will continue to monitor his labs and H&H every 12 hours Patient was denied transferred to [facility] I will follow up patient closely with you Start him on IV Clinimix at 42 mL/hour If he remains stable over the next 24 hours then we will give him a trial of clear liquid Dietary Evaluation Review Recommendations by RD: Protein Supplementation Comments: 1) If patient remains NPO > 7 days, consider EN/TPN to meet at least 75% daily estimated needs 2) Consider Pro-Stat @ 30 mL qd d/t increased protein needs 3) Initiate vitamin C @ 500 mg bid and zinc sulfate @ 220 mg qd for 7-10 days 4) Initiate multivitamin @ 1 tb qd 5) Advance to 60g CCHO low-fat diet when medically feasible, per [employer]IOR [employer]GER approval 6) F/u with gastroenterology, oncology, and nephrology 7) Continue to monitor I&O, labs, and skin integrity Expected Outcomes/Goals: 1) Patient to receive nutritional support within 7 days 2) wound and labs to improve 3) diet to advance 4) f/u in 2-3 days Plan discussed with: Other (ICU Nurse) TENA GUILLEN MD Jan 03, 2025 15:19
[2025-01-03 20:49] LABS: Hematocrit 27.7 % (41.0-53.0); Hemoglobin 9.3 g/dL (13.5-17.5); Mean Corpuscular Hemoglobin 28.4 pg (28.0-32.0); Mean Corpuscular Hgb Conc. 33.7 g/dL (32.0-36.0); Mean Corpuscular Volume 84.3 fL (80.0-100.0); Platelet Count (auto) 114 10^3/uL (140-450); Red Blood Cells 3.29 10^6/uL (4.5-5.90); Red Cell Distribution Width 19.5 % (11.8-14.3); White Blood Cell 10.7 10^3/uL (4.4-10.8)
[2025-01-03 20:51] LABS: Basophils % (manual) 0 (0.0-2.0); Blast Cells 0; Eosinophils % (manual) 0 (0-7); Promyelocytes % 0; Reactive Lymphocytes 0
[2025-01-03 21:22] LABS: Band Neutrophils % (manual) 2; Lymphocytes % (manual) 18 (10.0-50.0); Metamyelocytes % 1; Monocytes % (manual) 8 (0-12); Myelocytes % 1; Platelet Estimate Decreased
[2025-01-03 21:25] LABS: Large Platelets FEW; Polychromasia Slight; Target Cell MODERATE
[2025-01-03 21:28] LABS: Anisocytosis Moderate
[2025-01-03 21:29] LABS: Hypochromia Slight
[2025-01-03] MEDS: AMINO ACID INFUSION IN D10W 2,000 ML IV SCH (22:00)
--- NOTE | 2025-01-03 23:17 | DVHPN2 ---
Progress Note - Dictate Date Seen: Jan 03, 2025 Has the PT tested + for MRSA If YES, has PT been informed?: No Medical Necessity Reason Pt with a Central, PICC or Fol: No Subjective Patient seen and examined at bedside. Remains on supplemental oxygen Overnight events reviewed. vital signs Vital Sign Date Time Temp Pulse Resp B/P (MAP) Pulse Ox O2 Delivery O2 Flow Rate FiO2 01/03/25 21:00 80 17 122/68 (86) 95 01/03/25 20:00 Nasal Cannula* 2 01/03/25 19:30 97.9 97.9 Total Intake and Output 01/02/25 01/02/25 01/03/25 15:00 23:00 07:00 Intake Total 1328.00 ml 1795.00 ml 4038.25 ml Output Total 200 ml 100 ml Balance 1328.00 ml 1595.00 ml 3938.25 ml medications Current Medications Medications Dose Ordered Sig/Go Route Start Time Stop Time Status Last Admin Dose Admin Piperacillin Sod/ Tazobactam Sod 100 ml @ 25 mls/hr Q8HR IV 12/31/24 21:00 01/03/25 22:00 25 MLS/HR Sodium Chloride 1,000 ml @ 100 mls/hr Q10H IV 12/31/24 13:15 01/02/25 21:14 100 MLS/HR Ondansetron HCl 4 mg Q4HP PRN IV 12/31/24 13:15 01/01/25 16:23 4 MG Acetaminophen 650 mg Q6HP PRN PO 12/31/24 13:15 Diagnostic Test (Pha) 1 strip ACHS 12/31/24 17:00 01/03/25 22:00 1 STRIP Insulin Human Regular ACHS SC 12/31/24 17:00 01/03/25 05:43 3 UNITS Dextrose 50 ml UD PRN IV 12/31/24 13:45 Iron Sucrose 110 ml @ 110 mls/hr DAILY@1200 IV 01/01/25 12:00 01/05/25 12:59 01/03/25 14:17 110 MLS/HR Pantoprazole Sodium 50 ml @ 10 mls/hr Q5H IV 01/01/25 16:30 01/03/25 15:13 10 MLS/HR Linezolid 300 ml @ 150 mls/hr Q12HR IV 01/02/25 10:00 01/03/25 22:00 150 MLS/HR Norepinephrine Bitartrate 250 ml @ 3.75 mls/hr Q24H IV 01/02/25 10:15 01/02/25 22:59 15 MLS/HR Doxycycline Hyclate 100 ml @ 50 mls/hr Q12H IV 01/02/25 22:00 01/03/25 22:00 50 MLS/HR Amino Acids 0 ml @ 0 mls/hr PER PHARMACY IV 01/03/25 09:00 Octreotide Acetate 500 mcg/ Sodium Chloride 100 ml @ 10 mls/hr Q10H IV 01/03/25 09:00 01/03/25 18:39 10 MLS/HR Amino Acids/ Electrolytes/ Dextrose 2,000 ml @ 41 mls/hr DAILY@2200 IV 01/03/25 22:00 01/03/25 22:00 41 MLS/HR objective Gen.: Patient lying in bed in no apparent distress. On supplemental oxygen. Head: Normocephalic, atraumatic. Eyes: EOMI/PERRLA. Ears: Normal hearing. Normal anatomy. Neck/trachea: Trachea midline, supple. Nose: Normal external anatomy. Mouth: Moist mucous membranes. Chest: Decreased air entry bilaterally. No wheezing or rhonchi. Cardiovascular: Positive S1, positive S2. Regular rate and rhythm. Abdomen: Positive bowel sounds in all 4 quadrants. Soft, non-tender, non- distended. : Deferred. Rectal: Deferred. Skin: Warm, dry. Intact. Extremities: 2+ radial pulses bilaterally. No lower extremity edema. Neuro: Awake, alert, oriented x3. No gross motor or sensory deficits. Cranial nerves II through XII intact. Gait not assessed. laboratory and microbiology Laboratory Tests 01/03/25 20:02 01/03/25 09:02 Test 01/03/25 09:02 Range/Units Serum Glucose 155 H 74-106 mg/dL Assessment/Plan Impression: Acute hypoxic respiratory failure Dependence on supplemental oxygen Acute GI hemorrhage Anemia 2/2 GI hemorrhage Hypovolemic shock. Events: Remains on supplemental oxygen, 2 LPM NC Taper O2 as tolerated Awaiting Nephrology recommendations Off Levophed, hemodynamically stable. Head of bed elevation Aspiration precautions Continue antibiotics Octreotide drip S/p 2 units PRBC + 1 unit FFP yesterday Monitor hemoglobin GI recommendations appreciated. Monitor renal function. Monitor electrolytes. Supplement as necessary. Mag supplementation Labs and imaging reviewed. Rest of plan as noted below. Plan: Supplemental oxygen Titrate to keep O2 sats above 92%. Monitor hemoglobin GI recommendations appreciated. Protonix drip Pressors if necessary for hemodynamic support Titrate to keep mean arterial pressure greater than 65 mmHg Continue antibiotics Monitor renal function. Monitor electrolytes. Supplement as necessary. Monitor ins and outs. DVT prophylaxis. Prognosis: Poor given patient's multiple co-morbidities. Condition: Critical Rest of plan per hospitalist and other consultants. A total of 35 minutes of critical care time was spent reviewing the patient record, examining the patient, making a diagnostic and therapeutic plan, discussing this plan with the medical personnel, following up on diagnostic studies and following the patient for clinical stability excluding any and all procedures. At least 50% of this time was spent in direct, [id number] contact. Thank you Dr. Dunaway for allowing me to participate in this patient's care. Further recommendations will depend on the patient's clinical course. Please do not hesitate to contact me if you have any questions or concerns. This medical document was created using an electronic medical record system with [employer] dictation system. Although these documentations are being carefully reviewed, there may still be some phonetic and typographical changes. The errors are purely typographical, due to imperfection on the software program, and do not reflect any compromise in the patient's medical care. Dietary Evaluation Review Recommendations by RD: Protein Supplementation Comments: 1) If patient remains NPO > 7 days, consider EN/TPN to meet at least 75% daily estimated needs 2) Consider Pro-Stat @ 30 mL qd d/t increased protein needs 3) Initiate vitamin C @ 500 mg bid and zinc sulfate @ 220 mg qd for 7-10 days 4) Initiate multivitamin @ 1 tb qd 5) Advance to 60g CCHO low-fat diet when medically feasible, per [employer] approval 6) F/u with gastroenterology, oncology, and nephrology 7) Continue to monitor I&O, labs, and skin integrity Expected Outcomes/Goals: 1) Patient to receive nutritional support within 7 days 2) wound and labs to improve 3) diet to advance 4) f/u in 2-3 days Plan discussed with: Other (PARI Felipe) Critical Care Time(min): 35 LAUREN GUPTA MD 30, 2025 23:17
[2025-01-04] VITALS (96 sets, daily range): BP systolic 84–143; BP diastolic 52–107; PULSE 76–101; RESP 12–30; TEMP 97.2–97.9; O2SAT 89–100
[2025-01-04 00:42] LABS: Hematocrit 24.7 % (41.0-53.0); Hemoglobin 8.3 g/dL (13.5-17.5)
[2025-01-04 05:06] LABS: Hematocrit 24.8 % (41.0-53.0)
[2025-01-04 05:08] LABS: Hemoglobin 8.3 g/dL (13.5-17.5)
[2025-01-04 05:28] LABS: Potassium 3.7 mmol/L (3.5-5.1)
[2025-01-04 05:29] LABS: Anion Gap 9 (5-15); BUN/Creatinine Ratio 29.5 (10.0-20.0); Phosphorus 3.4 mg/dL (2.4-5.1); Sodium 138 mmol/L (136-145)
[2025-01-04 05:41] LABS: Alanine Aminotransferase 208 U/L (7-40); Albumin 1.7 g/dL (3.2-4.8); Alkaline Phosphatase 128 U/L (46-116); Aspartate Aminotransferase 1031 U/L (13-40); Bilirubin, Total 1.2 mg/dL (0.2-1.0); Blood Urea Nitrogen 59 mg/dL (9-23); Calcium 7.5 mg/dL (8.7-10.4); Carbon Dioxide 19 mmol/L (20-31); Chloride 110 mmol/L (98-107); Glucose 146 mg/dL (74-106); Total Protein 3.8 g/dL (5.7-8.2)
--- NOTE | 2025-01-04 10:35 | DVHPNRES ---
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 under care of Dr. Khoi Kellogg), presented to the ED with generalized weakness, decreased appetite for 2 weeks Per daughter and granddaughter, he has had difficulty ambulating, increasing weakness (noticed while rising from the toilet), and poor oral intake. He was recently diagnosed with UTI and prescribed Keflex, though he has not been compliant with home medications including glipizide, metformin, and mirtazapine. EMS was called when he was found hypotensive at home (SBP in 70s). Upon arrival, he was alert and oriented but continued to endorse generalized weakness. He also has a productive cough and was noted to have bilateral pleural effusions on imaging. CT abdomen/pelvis revealed a large pancreatic head mass (17.3 x 10.3 cm), ascites, liver heterogeneity suggesting metastasis, and peritoneal involvement. 01/01/25: the patient had an episode of hematemesis with approximately 150 cc of bright red blood around 4:20 p.m., Also he was having multiple episodes of melena during the day The patient was started on a Protonix drip, NPO, and transfusion support. He received 1 unit PRBCs at 1 p.m. on 12/31 and is planned to receive an additional unit for ongoing bleeding along with FFP and IV iron. Upgraded to ICU status 01/02/25: During the night, patient had multiple bloody stools and melena, hb came 6: total 4RBC, 2 FFP, albumin and vitamin K, am, the hb 7,2, patient was placed on levophed, port cath and midline will be use to infuse, case discussed extensively with the family, full code, 1 unit of cryoprecipitate 01/04/25: hb is trending high, just 1 bowel movement yesterday, patient is on octeotride and PPI, OSKAR is worsening, furosemide started, paracentesis ordered PAST MEDICAL HISTORY: Hypertension Type 2 Diabetes Mellitus Liver cancer on chemotherapy Recent UTI PAST SURGICAL HISTORY: Abdominal surgery >30 years ago MEDICATIONS PRIOR TO ADMISSION: Glipizide Metformin Mirtazapine Keflex Objective vital signs Vital Sign Date Time Temp Pulse Resp B/P (MAP) Pulse Ox O2 Delivery O2 Flow Rate FiO2 01/04/25 06:45 99 13 115/52 (73) 95 01/04/25 06:15 97.9 97.9 01/04/25 06:00 Nasal Cannula* 2 28 Total Intake and Output 01/03/25 01/03/25 01/04/25 15:00 23:00 07:00 Intake Total 1157.50 ml 886 ml 1527 ml Output Total 301 ml 700 ml Balance 1157.50 ml 585 ml 827 ml medications Current Medications Medications Dose Ordered Sig/Go Route Start Time Stop Time Status Last Admin Dose Admin Piperacillin Sod/ Tazobactam Sod 100 ml @ 25 mls/hr Q8HR IV 12/31/24 21:00 01/04/25 05:48 25 MLS/HR Ondansetron HCl 4 mg Q4HP PRN IV 12/31/24 13:15 01/01/25 16:23 4 MG Acetaminophen 650 mg Q6HP PRN PO 12/31/24 13:15 Diagnostic Test (Pha) 1 strip ACHS 12/31/24 17:00 01/04/25 06:48 1 STRIP Insulin Human Regular ACHS SC 12/31/24 17:00 01/04/25 06:39 2 UNITS Dextrose 50 ml UD PRN IV 12/31/24 13:45 Iron Sucrose 110 ml @ 110 mls/hr DAILY@1200 IV 01/01/25 12:00 01/05/25 12:59 01/03/25 14:17 110 MLS/HR Pantoprazole Sodium 50 ml @ 10 mls/hr Q5H IV 01/01/25 16:30 01/04/25 09:53 10 MLS/HR Linezolid 300 ml @ 150 mls/hr Q12HR IV 01/02/25 10:00 01/04/25 09:47 150 MLS/HR Norepinephrine Bitartrate 250 ml @ 3.75 mls/hr Q24H IV 01/02/25 10:15 01/02/25 22:59 15 MLS/HR Doxycycline Hyclate 100 ml @ 50 mls/hr Q12H IV 01/02/25 22:00 01/04/25 09:47 50 MLS/HR Amino Acids 0 ml @ 0 mls/hr PER PHARMACY IV 01/03/25 09:00 Octreotide Acetate 500 mcg/ Sodium Chloride 100 ml @ 10 mls/hr Q10H IV 01/03/25 09:00 01/04/25 05:13 10 MLS/HR Amino Acids/ Electrolytes/ Dextrose 2,000 ml @ 41 mls/hr DAILY@2200 IV 01/03/25 22:00 01/03/25 22:00 41 MLS/HR Furosemide 40 mg DAILY IV 01/05/25 10:00 Examination General: NAD, AAOx3 HEENT: No icterus, pallor; hematemesis Lungs: Clear to auscultation bilaterally Heart: RRR, no murmurs Abdomen: distended , tender in the lower abdomen +BS, Extremities: No edema Skin: No rash or bruising laboratory and microbiology Laboratory Tests 01/04/25 05:00 01/03/25 20:02 Test 01/04/25 05:00 Range/Units Serum Glucose 146 H 74-106 mg/dL Microbiology Date/Time Source Procedure Growth Status 01/01/25 06:55 Nose MRSA Screen - Final Complete 12/31/24 19:44 Voided Urine Urine Culture - Final Complete 12/31/24 10:55 Blood Blood Culture - Preliminary NO GROWTH AFTER 72 HOURS OF INCUBATION. Resulted Problem List/Assessment/Plan Problem List/Assessment/Plan GI: #Hemorrhagic shock # Upper and lower GI Bleed likely secondary to malignancy/portal hypertension/chemotherapy enterocolitis # Anemia acute blood loss anemia from GI bleed. off levophed since yesterday am Yesterday just 1 bowel movement On IV PPI and octeotride drip. GI consulted. 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 Kellogg at [facility], last chemo 12/11. Patient is not stable enough for further images #Ascites likely malignant. Monitor volume status Paracentesis ordered Pulmonary #Sepsis: #Acute respiratory failure #PNA? gram neg/ gram + #bilateral pleural effusions (left > right) possible aspiration Zosyn, linezolid and azithromycin IV O2 2 LT Endocrinology #Type 2 Diabetes Mellitus NPO status Sliding scale insulin. #HTN stable monitor BP. Renal #Hyponatremia, resolved #Hyperkalemia, resolved #Hypomagnesemia, resolved #OSKAR, vasomotor mediated: worsening iv fluids Nephro on the case furosemide started kidney US urine studies dodge catheter #UTI (recent) Completed Keflex at home Zosyn IV Goals of care discussed with the patient and his for 20 minutes; full code 160 minutes of critical care time Case discussed with Dr Paz Plan discussed with: Patient, Other (rn) My Orders My Orders Orders - LINO SHERMAN RESIDENT Procedure Category Date Status Time Insert Dodge Catheter LUDWIG 01/04/25 In Process 08:42 Paracentesis US 01/04/25 Logged 09:42 PTPTT LAB 01/04/25 Logged 09:42 *Dr. [facility] CONS 01/04/25 Transmitted -[place] 09:43 Abdomen Limited US 01/04/25 Taken Urine Sodium LAB 01/04/25 Logged 09:58 Urine Creatinine LAB 01/04/25 Logged 09:58 Urine Protein LAB 01/04/25 Logged 09:58 Kidney US 01/04/25 Taken 09:58 Comprehensive LAB 01/04/25 Verified Metabolic Panel 10:34 Dietary Evaluation Review Recommendations by RD: Protein Supplementation Comments: 1) If patient remains NPO > 7 days, consider EN/TPN to meet at least 75% daily estimated needs 2) Consider Pro-Stat @ 30 mL qd d/t increased protein needs 3) Initiate vitamin C @ 500 mg bid and zinc sulfate @ 220 mg qd for 7-10 days 4) Initiate multivitamin @ 1 tb qd 5) Advance to 60g CCHO low-fat diet when medically feasible, per [employer] approval 6) F/u with gastroenterology, oncology, and nephrology 7) Continue to monitor I&O, labs, and skin integrity Expected Outcomes/Goals: 1) Patient to receive nutritional support within 7 days 2) wound and labs to improve 3) diet to advance 4) f/u in 2-3 days Date of Service: Jan 04, 2025 Billing Provider: AGNES PAZ MD Common Visit Codes: [id number] INP/OBS CARE(HIGH) LINO SHERMAN RESIDENT Jan 04, 2025 10:35 AGNES PAZ MD Jan 04, 2025 22:08
--- NOTE | 2025-01-04 11:19 | DVH ---
ULTRASOUND ABDOMEN limited, 4 QUADRANTS INDICATION: FLUID CHECK Evaluate for ascites. TECHNIQUE: The four quadrants of the abdomen were scanned in dia-scale to assess for the presence of ascites. N o solid organ assessment was performed. FINDINGS/IMPRESSIONS: Moderate volume ascites.
[2025-01-04] MEDS: FUROSEMIDE 40 MG/4 ML VIAL IV ONE (11:30)
[2025-01-04 11:35] LABS: INR 1.25 (0.9-1.15)
--- NOTE | 2025-01-04 12:18 | DVH ---
INDICATION: OSKAR TECHNIQUE: Multiple real-time sonographic images of the kidneys and bladder were obtained. COMPARISON: None FINDINGS: The right kidney measures 12 cm in length, which is normal in size. There is normal echogen icity of the right kidney. No hydronephrosis. The left kidney measures 10 cm in length, which is normal in size. There is normal echogenicity of th e left kidney. No hydronephrosis. No large intraluminal masses are seen in the bladder. IMPRESSION: 1. Normal sonographic appearance of the kidneys. No hydronephrosis.
[2025-01-04 12:40] LABS: Hematocrit 26.9 % (41.0-53.0); Hemoglobin 8.6 g/dL (13.5-17.5)
--- NOTE | 2025-01-04 13:40 | DVHINCON2 ---
Date of service: Jan 04, 2025 Reason for Consultation OSKAR History of Present Illness 79 years old male with past medical history liver cancer on chemotherapy at [facility], diabetes, hypertension, Chronic kidney disease 3, hx abd surgery presented with chief complaints of generalized weakness and decreased appetite patient currently in ICU,, he had multiple low hemoglobin episodes needing multiple blood transfusions Past Medical History per HPI Past Surgical History Per HPI Allergies: Coded Allergies: NO KNOWN ALLERGIES (Unverified , 12/31/24) Home Meds Reported Medications Cephalexin (KEFLEX CAPSULE) 250 Mg Cp, 500 MG PO QID, CAP 01/01/25 Benzonatate (Benzonatate) 100 Mg Cap, 100 CAP PO TID PRN for FOR COUGH, #30 CAP 01/01/25 Metformin Hydrochloride (Metformin Hcl) 500 Mg Tab, 1000 MG PO BIDBRS for 30 Days, MG 01/01/25 Glipizide (Glipizide) 10 Mg Tab, 10 MG PO BID for 30 Days, MG 01/01/25 Losartan Potassium (Losartan Potassium) 25 Mg Tab, 1 TAB PO DAILY 12/31/24 Mirtazapine (Mirtazapine Oral Disintegrating Tablet) 15 Mg Tab, 1 TAB PO 12/31/24 Current Medications Current Medications Medications (Trade) Dose Ordered Sig/Go Route PRN Reason Start Time Stop Time Status Last Admin Amino Acids/ Electrolytes/ Dextrose 2,000 ml @ 41 mls/hr DAILY@2200 IV 01/03/25 22:00 01/04/25 21:59 01/03/25 22:00 Furosemide (Lasix Injection) 40 mg DAILY IV 01/05/25 10:00 Amino Acids/ Electrolytes/ Dextrose 1,000 ml @ 41 mls/hr DAILY@2200 IV 01/04/25 22:00 Albumin Human 50 ml @ 100 mls/hr Q8H IV 01/04/25 15:15 01/05/25 07:44 Nystatin (Mycostatin (Mouth-Throat)) 5 ml QID MT 01/04/25 18:00 Sodium Chloride (Saline Lock Ns) 10 ml QSHIFT@10,22 IV 01/04/25 22:00 Family History: Patient reports no known family medical history. Review of Systems As documented in HPI H&P Exam Vital Signs/I&O Vital Sign Date Time Temp Pulse Resp B/P (MAP) Pulse Ox O2 Delivery O2 Flow Rate FiO2 01/04/25 11:30 124/59 01/04/25 06:45 99 13 95 01/04/25 06:15 97.9 97.9 01/04/25 06:00 Nasal Cannula* 2 28 Intake and Output 01/03/25 01/04/25 19:00 07:00 Intake Total 1522.50 ml 2048 ml Output Total 301 ml 700 ml Balance 1221.50 ml 1348 ml Intake Oral 0 ml 0 ml IV Total 1522.50 ml 2048 ml Output Urine Total 300 ml 700 ml Stool Total 1 ml # Voids 1 # Bowel Movements 1 Physical Exam General-not in any distress HEENT-normocephalic, positive pallor Respiratory-fair air entry bilateral, no rhonchi, no wheeze [id number] heard, no murmurs appreciated Abdominal-distended Musculoskeletal-positive 3+ pedal edema, no calf tenderness Genitourinary-deferred Neuro-awake alert oriented x3, Psychiatric-not agitated, cooperative, Labs/Diagnostic Data Labs/Diagnostic Data Laboratory Tests Test 01/04/25 14:30 01/04/25 12:15 01/04/25 11:33 01/04/25 10:30 Range/Units Hemoglobin 8.6 L 13.5-17.5 g/dL Hematocrit 26.9 L 41.0-53.0 % POC Glucose 170 H 70-106 mg/dl Prothrombin Time 13.0 H 9.3-11.8 sec Prothrombin Time INR 1.25 H 0.9-1.15 Activated Partial Thromboplast Time 41.0 H 24.5-34.5 SEC Test 01/04/25 05:47 01/04/25 05:00 01/04/25 00:30 01/03/25 22:11 Range/Units POC Glucose 148 H 82 70-106 mg/dl Hemoglobin 8.3 L 8.3 L 13.5-17.5 g/dL Hematocrit 24.8 L 24.7 #L 41.0-53.0 % Sodium Level 138 136-145 mmol/L Potassium Level 3.7 3.5-5.1 mmol/L Chloride Level 110 H 98-107 mmol/L Carbon Dioxide Level 19 L 20-31 mmol/L Anion Gap 9 5-15 Blood Urea Nitrogen 59 H 9-23 mg/dL Creatinine 2.00 H 0.700-1.30 mg/dL Glomerular Filtration Rate Calc 34 >90 mL/min BUN/Creatinine Ratio 29.5 H 10.0-20.0 Serum Glucose 146 H 74-106 mg/dL Calcium Level 7.5 L 8.7-10.4 mg/dL Phosphorus Level 3.4 2.4-5.1 mg/dL Magnesium Level 2.0 1.6-2.6 mg/dL Total Bilirubin 1.2 H 0.2-1.0 mg/dL Aspartate Amino Transferase (AST) 1031 H 13-40 U/L Alanine Aminotransferase (ALT) 208 H 7-40 U/L Alkaline Phosphatase 128 H 46-116 U/L Total Protein 3.8 L 5.7-8.2 g/dL Albumin 1.7 L 3.2-4.8 g/dL Test 01/03/25 20:02 01/03/25 17:30 01/03/25 12:09 01/03/25 09:02 Range/Units White Blood Count 10.7 11.2 #H 4.4-10.8 10^3/uL Red Blood Count 3.29 L 3.24 L 4.5-5.90 10^6/uL Hemoglobin 9.3 L 9.0 #L 13.5-17.5 g/dL Hematocrit 27.7 L 27.2 #L 41.0-53.0 % Mean Corpuscular Volume 84.3 83.8 # 80.0-100.0 fL Mean Corpuscular Hemoglobin 28.4 27.8 L 28.0-32.0 pg Mean Corpuscular Hemoglobin Concent 33.7 33.2 32.0-36.0 g/dL Red Cell Distribution Width 19.5 H 19.8 H 11.8-14.3 % Platelet Count 114 L 125 L 140-450 10^3/uL Mean Platelet Volume 9.0 8.9 6.9-10.8 fL Neutrophils (%) (Auto) 64.9 37.0-80.0 % Lymphocytes (%) (Auto) 24.1 10.0-50.0 % Monocytes (%) (Auto) 10.2 0.0-12.0 % Basophils (%) (Auto) 0.5 0.0-2.0 % Neutrophils # (Auto) 7.3 1.6-8.6 10 ^3/uL Lymphocytes # (Auto) 2.7 0.4-5.4 10 ^3/uL Monocytes # (Auto) 1.1 0-1.3 10 ^3/uL Differential Total Cells Counted 100.0 100 Neutrophils % (Manual) 70 37.0-80.0 Band Neutrophils % (Manual) 2 Lymphocytes % (Manual) 18 10.0-50.0 Monocytes % (Manual) 8 0-12 Eosinophils % (Manual) 0 0-7 Basophils % (Manual) 0 0.0-2.0 Metamyelocytes % (manual) 1 Myelocytes % (Manual) 1 Promyelocytes % (Manual) 0 Blast Cells % (Manual) 0 Nucleated Red Blood Cells 4.0 2.7 % Reactive Lymphocytes 0 Platelet Estimate Decreased Large Platelets Few Polychromasia Slight Hypochromasia (manual) Slight Anisocytosis (manual) Moderate Target Cells Moderate [place] Cells Moderate Schistocytes Few POC Glucose 121 H 138 H 70-106 mg/dl Eosinophils (%) (Auto) 0.3 0.0-7.0 % Eosinophils # (Auto) 0 0-0.8 10 ^3/uL Basophils # (Auto) 0.1 0-0.2 10 ^3/uL Sodium Level 136 136-145 mmol/L Potassium Level 4.6 3.5-5.1 mmol/L Chloride Level 107 98-107 mmol/L Carbon Dioxide Level 18 L 20-31 mmol/L Anion Gap 11 5-15 Blood Urea Nitrogen 58 H 9-23 mg/dL Creatinine 2.03 H 0.700-1.30 mg/dL Glomerular Filtration Rate Calc 33 >90 mL/min BUN/Creatinine Ratio 28.6 H 10.0-20.0 Serum Glucose 155 H 74-106 mg/dL Lactic Acid Level 3.1 *H 0.4-2.0 mmol/L Calcium Level 7.9 L 8.7-10.4 mg/dL Magnesium Level 1.8 1.6-2.6 mg/dL Test 01/03/25 05:33 01/03/25 04:15 01/02/25 22:58 01/02/25 18:22 Range/Units POC Glucose 173 H 142 H 70-106 mg/dl Prothrombin Time 16.1 H 9.3-11.8 sec Prothrombin Time INR 1.59 H 0.9-1.15 Activated Partial Thromboplast Time 42.2 H 24.5-34.5 SEC Sodium Level 138 136-145 mmol/L Potassium Level 5.6 *H 3.5-5.1 mmol/L Chloride Level 111 H 98-107 mmol/L Carbon Dioxide Level 15 L 20-31 mmol/L Anion Gap 12 5-15 Blood Urea Nitrogen 58 H 9-23 mg/dL Creatinine 2.00 H 0.700-1.30 mg/dL Glomerular Filtration Rate Calc 34 >90 mL/min BUN/Creatinine Ratio 29.0 H 10.0-20.0 Serum Glucose 166 H 74-106 mg/dL Lactic Acid Level 5.3 *H 0.4-2.0 mmol/L Calcium Level 7.7 L 8.7-10.4 mg/dL Phosphorus Level 4.8 2.4-5.1 mg/dL Magnesium Level 1.8 1.6-2.6 mg/dL Total Bilirubin 1.4 H 0.2-1.0 mg/dL Aspartate Amino Transferase (AST) 701 H 13-40 U/L Alanine Aminotransferase (ALT) 150 H 7-40 U/L Alkaline Phosphatase 123 H 46-116 U/L Total Protein 3.9 L 5.7-8.2 g/dL Albumin 1.8 L 3.2-4.8 g/dL Hemoglobin 6.2 *L 13.5-17.5 g/dL Hematocrit 19.3 #L 41.0-53.0 % Test 01/02/25 12:00 01/02/25 07:02 01/02/25 03:11 01/02/25 00:18 Range/Units Hemoglobin 7.2 #L 6.0 #*L 7.8 L 13.5-17.5 g/dL Hematocrit 21.5 #L 18.3 #L 24.7 L 41.0-53.0 % Fibrinogen 130 L 177-375 mg/dL Lactic Acid Level 4.2 *H 4.3 *H 0.4-2.0 mmol/L Ammonia < 10 L 11-32 umol/L POC Glucose 119 H 70-106 mg/dl White Blood Count 8.9 # 4.4-10.8 10^3/uL Red Blood Count 2.51 L 4.5-5.90 10^6/uL Mean Corpuscular Volume 73.0 L 80.0-100.0 fL Mean Corpuscular Hemoglobin 23.8 L 28.0-32.0 pg Mean Corpuscular Hemoglobin Concent 32.6 32.0-36.0 g/dL Red Cell Distribution Width 23.0 H 11.8-14.3 % Platelet Count 130 L 140-450 10^3/uL Mean Platelet Volume 8.9 6.9-10.8 fL Neutrophils (%) (Auto) 37.0-80.0 % Lymphocytes (%) (Auto) 10.0-50.0 % Monocytes (%) (Auto) 0.0-12.0 % Basophils (%) (Auto) 0.0-2.0 % Neutrophils # (Auto) 1.6-8.6 10 ^3/uL Lymphocytes # (Auto) 0.4-5.4 10 ^3/uL Monocytes # (Auto) 0-1.3 10 ^3/uL Differential Total Cells Counted 100.0 100 Neutrophils % (Manual) 82 H 37.0-80.0 Band Neutrophils % (Manual) 0 Lymphocytes % (Manual) 14 10.0-50.0 Monocytes % (Manual) 3 0-12 Eosinophils % (Manual) 0 0-7 Basophils % (Manual) 0 0.0-2.0 Metamyelocytes % (manual) 1 Myelocytes % (Manual) 0 Promyelocytes % (Manual) 0 Blast Cells % (Manual) 0 Nucleated Red Blood Cells 1.0 % Reactive Lymphocytes 0 Platelet Estimate Decreased Hypochromasia (manual) Moderate Poikilocytosis (manual) Slight Anisocytosis (manual) Moderate Microcytosis Slight Target Cells Few Ovalocytes Few [place] Cells Few Schistocytes Few Prothrombin Time 16.1 H 9.3-11.8 sec Prothrombin Time INR 1.59 H 0.9-1.15 Activated Partial Thromboplast Time 37.6 H 24.5-34.5 SEC Sodium Level 136 136-145 mmol/L Potassium Level 4.6 3.5-5.1 mmol/L Chloride Level 107 98-107 mmol/L Carbon Dioxide Level 20 20-31 mmol/L Anion Gap 9 5-15 Blood Urea Nitrogen 54 H 9-23 mg/dL Creatinine 1.45 H 0.700-1.30 mg/dL Glomerular Filtration Rate Calc 49 >90 mL/min BUN/Creatinine Ratio 37.2 H 10.0-20.0 Serum Glucose 111 H 74-106 mg/dL Calcium Level 8.0 L 8.7-10.4 mg/dL Phosphorus Level 2.9 2.4-5.1 mg/dL Magnesium Level 1.9 1.6-2.6 mg/dL Total Bilirubin 1.3 H 0.2-1.0 mg/dL Aspartate Amino Transferase (AST) 343 H 13-40 U/L Alanine Aminotransferase (ALT) 89 H 7-40 U/L Alkaline Phosphatase 153 H 46-116 U/L Total Protein 3.9 L 5.7-8.2 g/dL Albumin 1.6 L 3.2-4.8 g/dL Lipase 176 H 12-53 U/L Test 01/01/25 22:23 01/01/25 18:32 01/01/25 17:01 01/01/25 13:30 Range/Units POC Glucose 91 105 70-106 mg/dl White Blood Count 6.0 7.1 4.4-10.8 10^3/uL Red Blood Count 3.52 L 3.22 L 4.5-5.90 10^6/uL Hemoglobin 7.8 L 7.4 L 13.5-17.5 g/dL Hematocrit 25.2 L 23.0 #L 41.0-53.0 % Mean Corpuscular Volume 71.7 L 71.6 L 80.0-100.0 fL Mean Corpuscular Hemoglobin 22.1 L 23.0 L 28.0-32.0 pg Mean Corpuscular Hemoglobin Concent 30.8 L 32.1 32.0-36.0 g/dL Red Cell Distribution Width 25.7 H 26.1 H 11.8-14.3 % Platelet Count 191 162 140-450 10^3/uL Mean Platelet Volume 9.2 8.8 6.9-10.8 fL Neutrophils (%) (Auto) 37.0-80.0 % Lymphocytes (%) (Auto) 10.0-50.0 % Monocytes (%) (Auto) 0.0-12.0 % Basophils (%) (Auto) 0.0-2.0 % Neutrophils # (Auto) 1.6-8.6 10 ^3/uL Lymphocytes # (Auto) 0.4-5.4 10 ^3/uL Monocytes # (Auto) 0-1.3 10 ^3/uL Differential Total Cells Counted 100.0 100.0 100 Neutrophils % (Manual) 72 33 L 37.0-80.0 Band Neutrophils % (Manual) 2 8 Lymphocytes % (Manual) 23 52 H 10.0-50.0 Monocytes % (Manual) 2 0 0-12 Eosinophils % (Manual) 1 0 0-7 Basophils % (Manual) 0 0 0.0-2.0 Metamyelocytes % (manual) 0 2 Myelocytes % (Manual) 0 0 Promyelocytes % (Manual) 0 0 Blast Cells % (Manual) 0 3 Reactive Lymphocytes 0 2 Platelet Estimate Adequate Adequate Hypochromasia (manual) Moderate Moderate Anisocytosis (manual) Moderate Moderate Microcytosis Slight Moderate Target Cells Moderate Ovalocytes Few [place] Cells Few Schistocytes Few Prothrombin Time 15.7 H 9.3-11.8 sec Prothrombin Time INR 1.55 H 0.9-1.15 Activated Partial Thromboplast Time 41.7 H 24.5-34.5 SEC Sodium Level 134 L 136-145 mmol/L Potassium Level 4.2 3.5-5.1 mmol/L Chloride Level 105 98-107 mmol/L Carbon Dioxide Level 22 20-31 mmol/L Anion Gap 7 5-15 Blood Urea Nitrogen 55 H 9-23 mg/dL Creatinine 1.39 H 0.700-1.30 mg/dL Glomerular Filtration Rate Calc 52 >90 mL/min BUN/Creatinine Ratio 39.6 H 10.0-20.0 Serum Glucose 134 H 74-106 mg/dL Calcium Level 8.1 L 8.7-10.4 mg/dL Total Bilirubin 1.3 H 0.2-1.0 mg/dL Aspartate Amino Transferase (AST) 399 H 13-40 U/L Alanine Aminotransferase (ALT) 108 H 7-40 U/L Alkaline Phosphatase 209 H 46-116 U/L Total Protein 4.8 L 5.7-8.2 g/dL Albumin 1.9 L 3.2-4.8 g/dL Test 01/01/25 11:37 01/01/25 09:23 01/01/25 05:57 12/31/24 22:30 Range/Units POC Glucose 186 H 136 H 70-106 mg/dl White Blood Count 7.8 # 4.4-10.8 10^3/uL Red Blood Count 3.61 L 4.5-5.90 10^6/uL Hemoglobin 8.1 #L 7.0 #*L 13.5-17.5 g/dL Hematocrit 25.9 #L 23.2 #L 41.0-53.0 % Mean Corpuscular Volume 71.8 L 80.0-100.0 fL Mean Corpuscular Hemoglobin 22.5 L 28.0-32.0 pg Mean Corpuscular Hemoglobin Concent 31.3 L 32.0-36.0 g/dL Red Cell Distribution Width 26.4 H 11.8-14.3 % Platelet Count 193 140-450 10^3/uL Mean Platelet Volume 8.5 6.9-10.8 fL Neutrophils (%) (Auto) 60.2 37.0-80.0 % Lymphocytes (%) (Auto) 26.5 10.0-50.0 % Monocytes (%) (Auto) 9.7 0.0-12.0 % Eosinophils (%) (Auto) 1.4 0.0-7.0 % Basophils (%) (Auto) 2.2 H 0.0-2.0 % Neutrophils # (Auto) 4.7 1.6-8.6 10 ^3/uL Lymphocytes # (Auto) 2.1 0.4-5.4 10 ^3/uL Monocytes # (Auto) 0.8 0-1.3 10 ^3/uL Eosinophils # (Auto) 0.1 0-0.8 10 ^3/uL Basophils # (Auto) 0.2 0-0.2 10 ^3/uL Nucleated Red Blood Cells 0.4 % Sodium Level 133 L 136-145 mmol/L Potassium Level 4.2 3.5-5.1 mmol/L Chloride Level 102 98-107 mmol/L Carbon Dioxide Level 22 20-31 mmol/L Anion Gap 9 5-15 Blood Urea Nitrogen 55 H 9-23 mg/dL Creatinine 1.42 H 0.700-1.30 mg/dL Glomerular Filtration Rate Calc 51 >90 mL/min BUN/Creatinine Ratio 38.7 H 10.0-20.0 Serum Glucose 171 H 74-106 mg/dL Calcium Level 8.1 L 8.7-10.4 mg/dL Iron Level 11 L 65-175 ug/dL Total Iron Binding Capacity 235 L 250-425 ug/dL Percent Iron Saturation 4.7 L 20-55 % Ferritin 57.7 22-322 ng/mL Total Bilirubin 1.5 H 0.2-1.0 mg/dL Aspartate Amino Transferase (AST) 302 H 13-40 U/L Alanine Aminotransferase (ALT) 113 H 7-40 U/L Alkaline Phosphatase 236 H 46-116 U/L Total Protein 5.2 L 5.7-8.2 g/dL Albumin 2.1 L 3.2-4.8 g/dL Thyroid Stimulating Hormone (TSH) 2.31 0.55-4.78 uIU/mL Test 12/31/24 22:14 12/31/24 21:52 12/31/24 19:44 12/31/24 18:38 Range/Units POC Glucose 150 H 159 H 70-106 mg/dl Stool Occult Blood Positive Negative Stool Occult Blood Sample #3 Negative Urine Color Yellow Yellow Urine Clarity Turbid H Clear Urine pH 5.5 5.0-9.0 Urine Specific [place] 1.022 1.001-1.035 Urine Protein 1+ H Negative Urine Ketones 1+ H Negative Urine Blood Trace H Negative /uL Urine Nitrite Negative Negative Urine Bilirubin Negative Negative Urine Urobilinogen Normal Negative mg/dL Urine Leukocyte Esterase Negative Negative /uL Urine RBC 3 0 - 3 /hpf Urine Microscopic WBC 9 H 0-3 /HPF Urine Squamous Epithelial Cells Few <5 /hpf Urine Bacteria None seen None Seen /hpf Urine Mucus Few None Seen Urine Glucose Normal Normal mg/dL Test 12/31/24 12:55 12/31/24 11:28 12/31/24 10:54 Range/Units Lactic Acid Level 4.9 *H 6.8 *H 0.4-2.0 mmol/L White Blood Count 14.6 H 4.4-10.8 10^3/uL Red Blood Count 4.02 L 4.5-5.90 10^6/uL Hemoglobin 8.5 L 13.5-17.5 g/dL Hematocrit 28.4 L 41.0-53.0 % Mean Corpuscular Volume 70.7 L 80.0-100.0 fL Mean Corpuscular Hemoglobin 21.2 L 28.0-32.0 pg Mean Corpuscular Hemoglobin Concent 30.0 L 32.0-36.0 g/dL Red Cell Distribution Width 26.8 H 11.8-14.3 % Platelet Count 205 140-450 10^3/uL Mean Platelet Volume 9.0 6.9-10.8 fL Neutrophils (%) (Auto) 37.0-80.0 % Lymphocytes (%) (Auto) 10.0-50.0 % Monocytes (%) (Auto) 0.0-12.0 % Basophils (%) (Auto) 0.0-2.0 % Neutrophils # (Auto) 1.6-8.6 10 ^3/uL Lymphocytes # (Auto) 0.4-5.4 10 ^3/uL Monocytes # (Auto) 0-1.3 10 ^3/uL Differential Total Cells Counted 100.0 100 Neutrophils % (Manual) 69 37.0-80.0 Band Neutrophils % (Manual) 13 Lymphocytes % (Manual) 17 10.0-50.0 Monocytes % (Manual) 1 0-12 Eosinophils % (Manual) 0 0-7 Basophils % (Manual) 0 0.0-2.0 Metamyelocytes % (manual) 0 Myelocytes % (Manual) 0 Promyelocytes % (Manual) 0 Blast Cells % (Manual) 0 Reactive Lymphocytes 0 Platelet Estimate Adequate Hypochromasia (manual) Moderate Anisocytosis (manual) Moderate Microcytosis Moderate Target Cells Moderate Sodium Level 131 L 136-145 mmol/L Potassium Level 5.2 H 3.5-5.1 mmol/L Chloride Level 97 L 98-107 mmol/L Carbon Dioxide Level 19 L 20-31 mmol/L Anion Gap 15 5-15 Blood Urea Nitrogen 49 H 9-23 mg/dL Creatinine 1.86 H 0.700-1.30 mg/dL Glomerular Filtration Rate Calc 37 >90 mL/min BUN/Creatinine Ratio 26.3 H 10.0-20.0 Serum Glucose 139 H 74-106 mg/dL Hemoglobin A1c 5.7 <5.7 % A1C Calcium Level 8.2 L 8.7-10.4 mg/dL Total Bilirubin 1.5 H 0.2-1.0 mg/dL Aspartate Amino Transferase (AST) 305 H 13-40 U/L Alanine Aminotransferase (ALT) 112 H 7-40 U/L Alkaline Phosphatase 288 H 46-116 U/L B-Type Natriuretic Peptide 261.59 0-100 pg/mL Total Protein 5.6 L 5.7-8.2 g/dL Albumin 2.2 L 3.2-4.8 g/dL Magnesium Level 1.8 1.6-2.6 mg/dL Microbiology Date/Time Source Procedure Growth Status 01/01/25 06:55 Nose MRSA Screen - Final Complete 12/31/24 19:44 Voided Urine Urine Culture - Final Complete Assessment Acute kidney injury hemodynamic mediated etiology Chronic kidney disease IIIb Liver cancer Acute blood loss anemia status post multiple transfusions Recommendations DC IV fluids Lasix IV as daily as patient appears swollen Rest of the management per primary We will follow closely Plan discussed with: Patient, Other LASHAY GAFFNEY MD Jan 04, 2025 13:40
--- NOTE | 2025-01-04 14:48 | DVH ---
US PARACENTESIS, HISTORY: PARACENTESIS PROCEDURE: Informed consent was obtained. The patient was placed in supine position. A limited locali zation ultrasound of the abdomen was obtained, and the skin site over the largest pocket of fluid was marked and entry site was prepped with chlorhexidine which was allowed to dry and draped in the usua l sterile fashion. Time out was performed. Following administration of 1% lidocaine local anesthetic, a 5 [place] centesis needle catheter was percutaneously inserted into the peritoneal collection until fluid was aspirated. The catheter was advanced into the fluid collection and the needle removed. Abo ut 4000 cc of fluid was aspirated and specimen sent for appropriate cultures/cytology/cultures and cy tology. The catheter was then removed and a sterile dressing applied. No immediate complication was identified. FINDINGS: Limited ultrasound imaging demonstrates mild ascites. Aspirated fluid was clear and serous. IMPRESSION: US-guided paracentesis with 4L removed.
[2025-01-04] MEDS: LIDOCAINE 1% (LOCAL ANESTH.) PF 5ml SDV ID ONE (15:05)
--- NOTE | 2025-01-04 16:11 | DVH ---
CHEST RADIOGRAPH Indication: PICC tip verification Technique: Single frontal view of the chest was obtained COMPARISON: XY CHEST XRAY 1 VIEW on DOS: 01/02/25, XY CHEST PORTABLE on DOS: 12/31/24 FINDINGS: Lines and Tubes: PICC line is seen in the superior vena cava proximally. Right-sided port-A-Cath unch anged in the in the superior vena cava Lungs: Bilateral pulmonary infiltrates, increased since the prior study. Effacement both hemidiaphrag ms. Pleura: No effusion. No pneumothorax. Cardiomediastinal contours: Unremarkable Bones: Unremarkable IMPRESSION: 1. Left-sided PICC line is in the proximal superior vena cava Increasing bilateral pulmonary infiltrates
[2025-01-04] MEDS: ALBUMIN 25% 50 ML IV SCH (16:25)
[2025-01-04] MEDS: NYSTATIN (MOUTH-THROAT) 500,000 UNITS/5 ML SUSP MT SCH (18:16)
[2025-01-04 19:20] LABS: Hematocrit 26.7 % (41.0-53.0); Hemoglobin 8.5 g/dL (13.5-17.5)
--- NOTE | 2025-01-04 19:28 | DVHPN2 ---
Progress Note - Dictate Date Seen: Jan 04, 2025 Has the PT tested + for MRSA If YES, has PT been informed?: No Medical Necessity Reason Pt with a Central, PICC or Fol: Yes The following are medically ne: PICC Line, Dodge Catheter Reason for dodge catheter: Strict I&O Subjective Patient seen and examined at bedside. Remains on supplemental oxygen Overnight events reviewed. vital signs Vital Sign Date Time Temp Pulse Resp B/P (MAP) Pulse Ox O2 Delivery O2 Flow Rate FiO2 01/04/25 18:00 81 01/04/25 18:00 20 96 Nasal Cannula* 2 28 01/04/25 16:45 01/04/25 12:00 97.6 97.6 Total Intake and Output 01/03/25 01/03/25 01/04/25 15:00 23:00 07:00 Intake Total 1157.50 ml 886 ml 1527 ml Output Total 301 ml 700 ml Balance 1157.50 ml 585 ml 827 ml medications Current Medications Medications Dose Ordered Sig/Go Route Start Time Stop Time Status Last Admin Dose Admin Piperacillin Sod/ Tazobactam Sod 100 ml @ 25 mls/hr Q8HR IV 12/31/24 21:00 01/04/25 16:26 25 MLS/HR Ondansetron HCl 4 mg Q4HP PRN IV 12/31/24 13:15 01/01/25 16:23 4 MG Acetaminophen 650 mg Q6HP PRN PO 12/31/24 13:15 Diagnostic Test (Pha) 1 strip ACHS 12/31/24 17:00 01/04/25 16:26 1 STRIP Insulin Human Regular ACHS SC 12/31/24 17:00 01/04/25 11:37 3 UNITS Dextrose 50 ml UD PRN IV 12/31/24 13:45 Iron Sucrose 110 ml @ 110 mls/hr DAILY@1200 IV 01/01/25 12:00 01/05/25 12:59 01/04/25 16:24 110 MLS/HR Pantoprazole Sodium 50 ml @ 10 mls/hr Q5H IV 01/01/25 16:30 01/04/25 09:53 10 MLS/HR Linezolid 300 ml @ 150 mls/hr Q12HR IV 01/02/25 10:00 01/04/25 09:47 150 MLS/HR Norepinephrine Bitartrate 250 ml @ 3.75 mls/hr Q24H IV 01/02/25 10:15 01/02/25 22:59 15 MLS/HR Doxycycline Hyclate 100 ml @ 50 mls/hr Q12H IV 01/02/25 22:00 01/04/25 09:47 50 MLS/HR Amino Acids 0 ml @ 0 mls/hr PER PHARMACY IV 01/03/25 09:00 Octreotide Acetate 500 mcg/ Sodium Chloride 100 ml @ 10 mls/hr Q10H IV 01/03/25 09:00 01/04/25 15:00 10 MLS/HR Amino Acids/ Electrolytes/ Dextrose 2,000 ml @ 41 mls/hr DAILY@2200 IV 01/03/25 22:00 01/04/25 21:59 01/03/25 22:00 41 MLS/HR Furosemide 40 mg DAILY IV 01/05/25 10:00 Amino Acids/ Electrolytes/ Dextrose 1,000 ml @ 41 mls/hr DAILY@2200 IV 01/04/25 22:00 Albumin Human 50 ml @ 100 mls/hr Q8H IV 01/04/25 15:15 01/05/25 07:44 01/04/25 16:25 100 MLS/HR Nystatin 5 ml QID MT 01/04/25 18:00 01/04/25 18:16 5 ML Sodium Chloride 10 ml QSHIFT@10,22 IV 01/04/25 22:00 objective Gen.: Patient lying in bed in no apparent distress. On supplemental oxygen. Head: Normocephalic, atraumatic. Eyes: EOMI/PERRLA. Ears: Normal hearing. Normal anatomy. Neck/trachea: Trachea midline, supple. Nose: Normal external anatomy. Mouth: Moist mucous membranes. Chest: Decreased air entry bilaterally. No wheezing or rhonchi. Cardiovascular: Positive S1, positive S2. Regular rate and rhythm. Abdomen: Positive bowel sounds in all 4 quadrants. Soft, non-tender, non- distended. : Deferred. Rectal: Deferred. Skin: Warm, dry. Intact. Extremities: 2+ radial pulses bilaterally. No lower extremity edema. Neuro: Awake, alert, oriented x3. No gross motor or sensory deficits. Cranial nerves II through XII intact. Gait not assessed. laboratory and microbiology Laboratory Tests 01/04/25 18:28 01/04/25 05:00 01/03/25 20:02 Test 01/04/25 05:00 Range/Units Serum Glucose 146 H 74-106 mg/dL Assessment/Plan Impression: Acute hypoxic respiratory failure Dependence on supplemental oxygen Acute GI hemorrhage Anemia 2/2 GI hemorrhage Hypovolemic shock. Events: Remains on supplemental oxygen, 2 LPM NC Taper O2 as tolerated S/p paracentesis, 4 liters removed Nephrology recommendations appreciated for worsening renal failure Off Levophed, hemodynamically stable. S/p PICC line placement Head of bed elevation Aspiration precautions Continue antibiotics Octreotide drip Monitor hemoglobin Transfuse if less than 7.0 g/dL. GI recommendations appreciated. Albumin Diurese w/ Lasix Monitor renal function. Monitor electrolytes. Supplement as necessary. Monitor ins and outs S/p Dodge Labs and imaging reviewed. Rest of plan as noted below. Plan: Supplemental oxygen Titrate to keep O2 sats above 92%. Monitor hemoglobin GI recommendations appreciated. Protonix drip Pressors if necessary for hemodynamic support Titrate to keep mean arterial pressure greater than 65 mmHg Continue antibiotics Monitor renal function. Monitor electrolytes. Supplement as necessary. Monitor ins and outs. DVT prophylaxis. Prognosis: Poor given patient's multiple co-morbidities. Condition: Critical Rest of plan per hospitalist and other consultants. A total of 35 minutes of critical care time was spent reviewing the patient record, examining the patient, making a diagnostic and therapeutic plan, discussing this plan with the medical personnel, following up on diagnostic studies and following the patient for clinical stability excluding any and all procedures. At least 50% of this time was spent in direct, [id number] contact. Thank you Dr. Dunaway for allowing me to participate in this patient's care. Further recommendations will depend on the patient's clinical course. Please do not hesitate to contact me if you have any questions or concerns. This medical document was created using an electronic medical record system with [employer] dictation system. Although these documentations are being carefully reviewed, there may still be some phonetic and typographical changes. The errors are purely typographical, due to imperfection on the software program, and do not reflect any compromise in the patient's medical care. Dietary Evaluation Review Recommendations by RD: Protein Supplementation Comments: 1) If patient remains NPO > 7 days, consider EN/TPN to meet at least 75% daily estimated needs 2) Consider Pro-Stat @ 30 mL qd d/t increased protein needs 3) Initiate vitamin C @ 500 mg bid and zinc sulfate @ 220 mg qd for 7-10 days 4) Initiate multivitamin @ 1 tb qd 5) Advance to 60g CCHO low-fat diet when medically feasible, per ONLINE HEALTH AND FITNESS COACH approval 6) F/u with gastroenterology, oncology, and nephrology 7) Continue to monitor I&O, labs, and skin integrity Expected Outcomes/Goals: 1) Patient to receive nutritional support within 7 days 2) wound and labs to improve 3) diet to advance 4) f/u in 2-3 days Plan discussed with: Other (PARI Felipe) Critical Care Time(min): 35 LAUREN GUPTA MD Jan 04, 2025 19:28
[2025-01-04] MEDS: AMINO ACID INFUSION IN D10W 1,000 ML IV SCH (21:14)
--- NOTE | 2025-01-04 22:03 | DVHPN2 ---
Progress Note - Dictate Date Seen: Jan 04, 2025 Has the PT tested + for MRSA If YES, has PT been informed?: No Medical Necessity Reason Pt with a Central, PICC or Fol: No Subjective Patient underwent paracentesis today Patient is receiving an IV iron infusion H&H was stable today however patient did have another large bloody bowel movement this evening No further episodes of nausea vomiting or hematemesis Patient had a PICC line placed and will be started on TPN vital signs Vital Sign Date Time Temp Pulse Resp B/P (MAP) Pulse Ox O2 Delivery O2 Flow Rate FiO2 01/04/25 19:15 81 21 107/68 (81) 96 01/04/25 18:00 Nasal Cannula* 2 28 01/04/25 18:00 97.2 97.2 Total Intake and Output 01/03/25 01/03/25 01/04/25 15:00 23:00 07:00 Intake Total 1157.50 ml 886 ml 1588 ml Output Total 301 ml 700 ml Balance 1157.50 ml 585 ml 888 ml medications Current Medications Medications Dose Ordered Sig/Go Route Start Time Stop Time Status Last Admin Dose Admin Piperacillin Sod/ Tazobactam Sod 100 ml @ 25 mls/hr Q8HR IV 12/31/24 21:00 01/04/25 21:14 25 MLS/HR Ondansetron HCl 4 mg Q4HP PRN IV 12/31/24 13:15 01/01/25 16:23 4 MG Acetaminophen 650 mg Q6HP PRN PO 12/31/24 13:15 Diagnostic Test (Pha) 1 strip ACHS 12/31/24 17:00 01/04/25 16:26 1 STRIP Insulin Human Regular ACHS SC 12/31/24 17:00 01/04/25 11:37 3 UNITS Dextrose 50 ml UD PRN IV 12/31/24 13:45 Iron Sucrose 110 ml @ 110 mls/hr DAILY@1200 IV 01/01/25 12:00 01/05/25 12:59 01/04/25 16:24 110 MLS/HR Pantoprazole Sodium 50 ml @ 10 mls/hr Q5H IV 01/01/25 16:30 01/04/25 09:53 10 MLS/HR Linezolid 300 ml @ 150 mls/hr Q12HR IV 01/02/25 10:00 01/04/25 21:14 150 MLS/HR Norepinephrine Bitartrate 250 ml @ 3.75 mls/hr Q24H IV 01/02/25 10:15 01/02/25 22:59 15 MLS/HR Doxycycline Hyclate 100 ml @ 50 mls/hr Q12H IV 01/02/25 22:00 01/04/25 21:14 50 MLS/HR Amino Acids 0 ml @ 0 mls/hr PER PHARMACY IV 01/03/25 09:00 Octreotide Acetate 500 mcg/ Sodium Chloride 100 ml @ 10 mls/hr Q10H IV 01/03/25 09:00 01/04/25 15:00 10 MLS/HR Furosemide 40 mg DAILY IV 01/05/25 10:00 Amino Acids/ Electrolytes/ Dextrose 1,000 ml @ 41 mls/hr DAILY@2200 IV 01/04/25 22:00 01/04/25 21:14 41 MLS/HR Albumin Human 50 ml @ 100 mls/hr Q8H IV 01/04/25 15:15 01/05/25 07:44 01/04/25 16:25 100 MLS/HR Nystatin 5 ml QID MT 01/04/25 18:00 01/04/25 21:13 5 ML Sodium Chloride 10 ml QSHIFT@10,22 IV 01/04/25 22:00 objective General Appearance: Alert, Oriented X3, Cooperative, No acute distress, thin and cachectic HEENT: Atraumatic Lungs: Clear to auscultation Cardiovascular: Regular rate and rhythm Abdomen: Other nontender Extremities: 2+ pedal edema Neuro appears to be nonfocal laboratory and microbiology Laboratory Tests 01/04/25 18:28 01/04/25 05:00 01/03/25 20:02 Test 01/04/25 05:00 Range/Units Serum Glucose 146 H 74-106 mg/dL Problems(with codes): (1) GI bleed requiring more than 4 units of blood in 24 hours, ICU, or surgery (2) GI bleed (3) Elevated lactic acid level (4) Liver cancer (5) Sepsis (6) Leukocytosis (7) Anemia (8) Pneumonia Prognosis A/P 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 Patient may also be oozing from his liver mass as that could bleed into the GI tract Patient has received a total of 6 units PRBC and 2 of FFP and one cryoprecipitate Patient also received some vitamin K x3 doses Currently he is receiving IV iron infusion Patient still has mild coagulopathy His lactic acidosis is improving slightly Continue supportive care IV Protonix drip Patient is also currently on IV octreotide drip We will continue to monitor his labs and H&H every 12 hours Patient was denied transferred to [facility] I will follow up patient closely with you Start him on IV Clinimix at 42 mL/hour We will discuss endoscopic workup with family once the patient is stabilized If he remains stable over the next 24 hours then we will give him a trial of clear liquid Dietary Evaluation Review Recommendations by RD: Protein Supplementation Comments: 1) If patient remains NPO > 7 days, consider EN/TPN to meet at least 75% daily estimated needs 2) Consider Pro-Stat @ 30 mL qd d/t increased protein needs 3) Initiate vitamin C @ 500 mg bid and zinc sulfate @ 220 mg qd for 7-10 days 4) Initiate multivitamin @ 1 tb qd 5) Advance to 60g CCHO low-fat diet when medically feasible, per BALL ASSEMBLER approval 6) F/u with gastroenterology, oncology, and nephrology 7) Continue to monitor I&O, labs, and skin integrity Expected Outcomes/Goals: 1) Patient to receive nutritional support within 7 days 2) wound and labs to improve 3) diet to advance 4) f/u in 2-3 days Plan discussed with: Other (ICU Nurse) TENA GUILLEN MD Jan 04, 2025 22:03
[2025-01-04] MEDS: SODIUM CHLOR 0.9% PF (SALINE LOCK) 10ML VIAL/SYR IV SCH (22:09)
[2025-01-05] VITALS (64 sets, daily range): BP systolic 97–143; BP diastolic 51–89; PULSE 70–98; RESP 14–28; TEMP 97.3–98.6; O2SAT 89–99
[2025-01-05 03:55] LABS: Hematocrit 27.1 % (41.0-53.0); Hemoglobin 8.5 g/dL (13.5-17.5); Mean Corpuscular Hemoglobin 28.4 pg (28.0-32.0); Mean Corpuscular Hgb Conc. 31.5 g/dL (32.0-36.0); Mean Corpuscular Volume 90.3 fL (80.0-100.0); Platelet Count (auto) 94 10^3/uL (140-450); White Blood Cell 11.7 10^3/uL (4.4-10.8)
[2025-01-05 04:06] LABS: Band Neutrophils % (manual) 0; Basophils % (manual) 0 (0.0-2.0); Blast Cells 0; Eosinophils % (manual) 0 (0-7); Metamyelocytes % 0; Myelocytes % 0; Promyelocytes % 0; Reactive Lymphocytes 0
[2025-01-05 04:12] LABS: BUN/Creatinine Ratio 26.7 (10.0-20.0); Magnesium 1.8 mg/dL (1.6-2.6); Triglycerides 80 mg/dL (< 150)
[2025-01-05 04:21] LABS: Alanine Aminotransferase 167 U/L (7-40); Albumin 2.2 g/dL (3.2-4.8); Alkaline Phosphatase 132 U/L (46-116); Aspartate Aminotransferase 684 U/L (13-40); Bilirubin, Total 1.3 mg/dL (0.2-1.0); Blood Urea Nitrogen 51 mg/dL (9-23); Calcium 7.8 mg/dL (8.7-10.4); Carbon Dioxide 17 mmol/L (20-31); Glucose 117 mg/dL (74-106); Potassium 3.2 mmol/L (3.5-5.1); Sodium 136 mmol/L (136-145); Total Protein 4.5 g/dL (5.7-8.2)
[2025-01-05 04:26] LABS: Anion Gap 10 (5-15)
[2025-01-05 04:30] LABS: Chloride 109 mmol/L (98-107)
[2025-01-05 05:02] LABS: Lymphocytes % (manual) 10 (10.0-50.0); Monocytes % (manual) 6 (0-12)
[2025-01-05 05:03] LABS: Anisocytosis Moderate; Polychromasia Slight
[2025-01-05 05:04] LABS: Large Platelets FEW; Platelet Estimate Decreased; Target Cell FEW
[2025-01-05] MEDS: FUROSEMIDE 40 MG/4 ML VIAL IV SCH (09:12)
[2025-01-05] MEDS: POTASSIUM CHLORIDE 40 MEQ, LIDOCAINE 1% (LOCAL ANESTH.) 4 ML in SODIUM CHL 0.9% 250 ML IV ONE (10:40)
[2025-01-05] MEDS ORDERED: TPN PER PHARMACY 0 ML IV SCH (11:00)
--- NOTE | 2025-01-05 11:32 | DVHPNRES ---
Progress Note Has the PT tested + for MRSA If YES, has PT been informed?: No Medical Necessity Reason Pt with a Central, PICC or Fol: Yes The following are medically ne: PICC Line, Dodge Catheter Reason for dodge catheter: Strict I&O Objective vital signs Vital Sign Date Time Temp Pulse Resp B/P (MAP) Pulse Ox O2 Delivery O2 Flow Rate FiO2 01/05/25 10:00 74 01/05/25 10:00 19 101/60 (74) 97 01/05/25 10:00 Nasal Cannula* 2 28 01/05/25 08:00 98.6 98.6 Total Intake and Output 01/04/25 01/04/25 01/05/25 14:59 22:59 06:59 Intake Total 838 ml 623 ml 897 ml Output Total 1050 ml 700 ml Balance 838 ml -427 ml 197 ml medications Current Medications Medications Dose Ordered Sig/Go Route Start Time Stop Time Status Last Admin Dose Admin Piperacillin Sod/ Tazobactam Sod 100 ml @ 25 mls/hr Q8HR IV 12/31/24 21:00 01/05/25 05:03 25 MLS/HR Ondansetron HCl 4 mg Q4HP PRN IV 12/31/24 13:15 01/01/25 16:23 4 MG Acetaminophen 650 mg Q6HP PRN PO 12/31/24 13:15 Diagnostic Test (Pha) 1 strip ACHS 12/31/24 17:00 01/05/25 06:18 1 STRIP Insulin Human Regular ACHS SC 12/31/24 17:00 01/04/25 22:08 2 UNITS Dextrose 50 ml UD PRN IV 12/31/24 13:45 Iron Sucrose 110 ml @ 110 mls/hr DAILY@1200 IV 01/01/25 12:00 01/05/25 12:59 01/04/25 16:24 110 MLS/HR Pantoprazole Sodium 50 ml @ 10 mls/hr Q5H IV 01/01/25 16:30 01/05/25 09:11 10 MLS/HR Linezolid 300 ml @ 150 mls/hr Q12HR IV 01/02/25 10:00 01/05/25 09:13 150 MLS/HR Doxycycline Hyclate 100 ml @ 50 mls/hr Q12H IV 01/02/25 22:00 01/05/25 09:13 50 MLS/HR Octreotide Acetate 500 mcg/ Sodium Chloride 100 ml @ 10 mls/hr Q10H IV 01/03/25 09:00 01/05/25 01:38 10 MLS/HR Furosemide 40 mg DAILY IV 01/05/25 10:00 01/05/25 09:12 40 MG Amino Acids/ Electrolytes/ Dextrose 1,000 ml @ 41 mls/hr DAILY@2200 IV 01/04/25 22:00 01/05/25 21:59 01/04/25 21:14 41 MLS/HR Nystatin 5 ml QID MT 01/04/25 18:00 01/05/25 05:02 5 ML Sodium Chloride 10 ml QSHIFT@10,22 IV 01/04/25 22:00 01/05/25 09:12 10 ML Amino Acids 0 ml @ 0 mls/hr PER PHARMACY IV 01/05/25 11:00 Sodium Acetate 20 meq/Sodium Phosphate 10 meq/ Potassium Acetate 30 meq/Magnesium Sulfate 12 meq/ Multivitamins 10 ml/Chromium/ Copper/Manganese/ Zinc 1 ml/Amino Acids/Dextrose/ Purified Water 1,041.5 ml @ 43 mls/hr [id number] IV 01/05/25 22:00 01/06/25 21:59 laboratory and microbiology Laboratory Tests 01/05/25 03:13 Test 01/05/25 03:13 Range/Units Serum Glucose 117 H 74-106 mg/dL Microbiology Date/Time Source Procedure Growth Status 01/01/25 06:55 Nose MRSA Screen - Final Complete 12/31/24 19:44 Voided Urine Urine Culture - Final Complete 12/31/24 10:55 Blood Blood Culture - Final NO GROWTH AFTER 5 DAYS OF INCUBATION. Complete Problem List/Assessment/Plan Problem List/Assessment/Plan GI: #Hemorrhagic shock # Upper and lower GI Bleed likely secondary to malignancy/portal hypertension/chemotherapy enterocolitis # Anemia acute blood loss anemia from GI bleed. off levophed since yesterday am Yesterday just 1 bowel movement On IV PPI and octeotride drip. GI consulted. 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 Kellogg at [facility], last chemo 12/11. Patient is not stable enough for further images #Ascites likely malignant. Monitor volume status Paracentesis ordered Pulmonary #Sepsis: #Acute respiratory failure #PNA? gram neg/ gram + #bilateral pleural effusions (left > right) possible aspiration Zosyn, linezolid and azithromycin IV O2 2 LT Endocrinology #Type 2 Diabetes Mellitus NPO status Sliding scale insulin. #HTN stable monitor BP. Renal #Hyponatremia, resolved #Hyperkalemia, resolved #Hypomagnesemia, resolved #OSKAR, vasomotor mediated: worsening iv fluids Nephro on the case furosemide started kidney US urine studies dodge catheter #UTI (recent) Completed Keflex at home Zosyn IV Goals of care discussed with the patient and his for 20 minutes; full code 160 minutes of critical care time Case discussed with Dr Buck My Orders My Orders Orders - LINO SHERMAN RESIDENT Procedure Category Date Status Time * Supervisor [employer] CONS 01/04/25 Transmitted Consult Paracentesis US 01/04/25 Resulted * Supervisor [employer] CONS 01/04/25 Transmitted Consult Nystatin PHA 01/04/25 In Process (Mouth-Throat) 18:00 Nursing Protocol Picc LUDWIG 01/04/25 In Process 15:39 Change Dressing Prn LUDWIG 01/04/25 In Process 15:39 Sodium Chloride Lock PHA 01/04/25 In Process (Saline Lock Ns) 22:00 Do Not Use Picc For [facility] 01/04/25 In Process Blood Cult 15:39 May Draw Blood From LUDWIG 01/04/25 In Process Picc 15:39 Chest Portable XY 01/04/25 Resulted 15:39 Ok To Use Picc LUDWIG 01/04/25 In Process 15:39 Change Picc Dressing LUDWIG 01/04/25 In Process Q7 Days 15:39 Potassium Chloride PHA 01/05/25 In Process (Potassium Chloride). 08:15 Tpn Per Pharmacy LUDWIG 01/05/25 In Process 09:01 Tpn Per Pharmacy PHA 01/05/25 In Process 11:00 Amino Acid PHA 01/05/25 In Process Infusion... W/Sodium 22:00 Comprehensive LAB 01/06/25 Verified Metabolic Panel 06:00 Magnesium LAB 01/06/25 Verified 06:00 Phosphorus LAB 01/06/25 Verified 06:00 Tpn Per Pharmacy LUDWIG 01/05/25 In Process 22:00 Dietary Evaluation Review Recommendations by RD: Protein Supplementation Comments: 1) If patient remains NPO > 7 days, consider EN/TPN to meet at least 75% daily estimated needs 2) Consider Pro-Stat @ 30 mL qd d/t increased protein needs 3) Initiate vitamin C @ 500 mg bid and zinc sulfate @ 220 mg qd for 7-10 days 4) Initiate multivitamin @ 1 tb qd 5) Advance to 60g CCHO low-fat diet when medically feasible, per DISTRIBUTION SUPERVISOR approval 6) F/u with gastroenterology, oncology, and nephrology 7) Continue to monitor I&O, labs, and skin integrity Expected Outcomes/Goals: 1) Patient to receive nutritional support within 7 days 2) wound and labs to improve 3) diet to advance 4) f/u in 2-3 days LINO SHERMAN RESIDENT Jan 05, 2025 11:32
[2025-01-05 13:07] LABS: Protein, Body Fluid 0.9 g/dL (.)
[2025-01-05] MEDS ORDERED: POTASSIUM CHL 10MEQ/50ML 50 ML IV SCH (13:15)
[2025-01-05] MEDS: SODIUM BICARB 8.4% 50Meq/50ml SYR Vial IV ONE (16:35)
[2025-01-05] MEDS: POTASSIUM CHL 20MEQ/50ML 50 ML IV ONE (16:36)
--- NOTE | 2025-01-05 19:56 | DVHPN2 ---
Progress Note - Dictate Date Seen: Jan 05, 2025 Has the PT tested + for MRSA If YES, has PT been informed?: No Medical Necessity Reason Pt with a Central, PICC or Fol: Yes The following are medically ne: PICC Line, Dodge Catheter Reason for dodge catheter: Strict I&O Subjective Patient seen and examined at bedside. Remains on supplemental oxygen Overnight events reviewed. vital signs Vital Sign Date Time Temp Pulse Resp B/P (MAP) Pulse Ox O2 Delivery O2 Flow Rate FiO2 01/05/25 17:00 97.3 81 16 126/72 (90) 99 97.3 01/05/25 14:00 Nasal Cannula* 2 28 Total Intake and Output 01/04/25 01/04/25 01/05/25 15:00 23:00 07:00 Intake Total 818 ml 777 ml 788 ml Output Total 1050 ml 700 ml Balance 818 ml -273 ml 88 ml medications Current Medications Medications Dose Ordered Sig/Go Route Start Time Stop Time Status Last Admin Dose Admin Piperacillin Sod/ Tazobactam Sod 100 ml @ 25 mls/hr Q8HR IV 12/31/24 21:00 01/05/25 12:58 25 MLS/HR Ondansetron HCl 4 mg Q4HP PRN IV 12/31/24 13:15 01/01/25 16:23 4 MG Acetaminophen 650 mg Q6HP PRN PO 12/31/24 13:15 Diagnostic Test (Pha) 1 strip ACHS 12/31/24 17:00 01/05/25 16:53 1 STRIP Insulin Human Regular ACHS SC 12/31/24 17:00 01/05/25 13:15 2 UNITS Dextrose 50 ml UD PRN IV 12/31/24 13:45 Pantoprazole Sodium 50 ml @ 10 mls/hr Q5H IV 01/01/25 16:30 01/05/25 09:11 10 MLS/HR Linezolid 300 ml @ 150 mls/hr Q12HR IV 01/02/25 10:00 01/05/25 09:13 150 MLS/HR Doxycycline Hyclate 100 ml @ 50 mls/hr Q12H IV 01/02/25 22:00 01/05/25 09:13 50 MLS/HR Octreotide Acetate 500 mcg/ Sodium Chloride 100 ml @ 10 mls/hr Q10H IV 01/03/25 09:00 01/05/25 12:50 10 MLS/HR Furosemide 40 mg DAILY IV 01/05/25 10:00 01/05/25 09:12 40 MG Amino Acids/ Electrolytes/ Dextrose 1,000 ml @ 41 mls/hr DAILY@2200 IV 01/04/25 22:00 01/05/25 21:59 01/04/25 21:14 41 MLS/HR Nystatin 5 ml QID MT 01/04/25 18:00 01/05/25 16:45 5 ML Sodium Chloride 10 ml QSHIFT@10,22 IV 01/04/25 22:00 01/05/25 09:12 10 ML Amino Acids 0 ml @ 0 mls/hr PER PHARMACY IV 01/05/25 11:00 Sodium Acetate 20 meq/Sodium Phosphate 10 meq/ Potassium Acetate 30 meq/Magnesium Sulfate 12 meq/ Multivitamins 10 ml/Chromium/ Copper/Manganese/ Zinc 1 ml/Amino Acids/Dextrose/ Purified Water 1,041.5 ml @ 43 mls/hr [id number] IV 01/05/25 22:00 01/06/25 21:59 objective Gen.: Patient lying in bed in no apparent distress. On supplemental oxygen. Head: Normocephalic, atraumatic. Eyes: EOMI/PERRLA. Ears: Normal hearing. Normal anatomy. Neck/trachea: Trachea midline, supple. Nose: Normal external anatomy. Mouth: Moist mucous membranes. Chest: Decreased air entry bilaterally. No wheezing or rhonchi. Cardiovascular: Positive S1, positive S2. Regular rate and rhythm. Abdomen: Positive bowel sounds in all 4 quadrants. Soft, non-tender, non- distended. : Deferred. Rectal: Deferred. Skin: Warm, dry. Intact. Extremities: 2+ radial pulses bilaterally. No lower extremity edema. Neuro: Awake, alert, oriented x3. No gross motor or sensory deficits. Cranial nerves II through XII intact. Gait not assessed. laboratory and microbiology Laboratory Tests 01/05/25 03:13 Test 01/05/25 03:13 Range/Units Serum Glucose 117 H 74-106 mg/dL Assessment/Plan Impression: Acute hypoxic respiratory failure Dependence on supplemental oxygen Acute GI hemorrhage Anemia 2/2 GI hemorrhage Hypovolemic shock. Events: Remains on supplemental oxygen, 2 LPM NC Taper O2 as tolerated S/p paracentesis yesterday, 4 liters removed Nephrology recommendations appreciated for worsening renal failure Off pressors, hemodynamically stable. Head of bed elevation Aspiration precautions Incentive spirometry Continue antibiotics Octreotide drip Protonix Monitor hemoglobin Transfuse if less than 7.0 g/dL. GI recommendations appreciated. Start TPN for nutritional support Stop Clinimix Diurese w/ Lasix Monitor renal function. Monitor electrolytes. Supplement as necessary. Potassium supplementation Monitor ins and outs S/p Dodge Labs and imaging reviewed. Rest of plan as noted below. Plan: Supplemental oxygen Titrate to keep O2 sats above 92%. Monitor hemoglobin GI recommendations appreciated. Protonix drip S/p PICC line placement Pressors if necessary for hemodynamic support Titrate to keep mean arterial pressure greater than 65 mmHg Continue antibiotics Monitor renal function. Monitor electrolytes. Supplement as necessary. Monitor ins and outs. DVT prophylaxis. Prognosis: Poor given patient's multiple co-morbidities. Rest of plan per hospitalist and other consultants. Thank you Dr. Dunaway for allowing me to participate in this patient's care. Further recommendations will depend on the patient's clinical course. Please do not hesitate to contact me if you have any questions or concerns. This medical document was created using an electronic medical record system with [employer] dictation system. Although these documentations are being carefully reviewed, there may still be some phonetic and typographical changes. The errors are purely typographical, due to imperfection on the software program, and do not reflect any compromise in the patient's medical care. Dietary Evaluation Review Recommendations by RD: Protein Supplementation Comments: 1) If patient remains NPO > 7 days, consider EN/TPN to meet at least 75% daily estimated needs 2) Consider Pro-Stat @ 30 mL qd d/t increased protein needs 3) Initiate vitamin C @ 500 mg bid and zinc sulfate @ 220 mg qd for 7-10 days 4) Initiate multivitamin @ 1 tb qd 5) Advance to 60g CCHO low-fat diet when medically feasible, per DOCUMENTATION LEAD approval 6) F/u with gastroenterology, oncology, and nephrology 7) Continue to monitor I&O, labs, and skin integrity Expected Outcomes/Goals: 1) Patient to receive nutritional support within 7 days 2) wound and labs to improve 3) diet to advance 4) f/u in 2-3 days Plan discussed with: Patient, Other (RN Kristy) LAUREN GUPTA MD Jan 05, 2025 19:56
[2025-01-05] MEDS: DOXYCYCLINE 100MG/100ML 100 ML IV SCH (20:26)
[2025-01-05] MEDS: LINEZOLID 600MG/300ML 300 ML IV ONE (20:35)
--- NOTE | 2025-01-05 20:47 | DVHPN2 ---
Progress Note Date Seen: Jan 05, 2025 Has the PT tested + for MRSA If YES, has PT been informed?: No Medical Necessity Reason Pt with a Central, PICC or Fol: Yes The following are medically ne: PICC Line, Dodge Catheter Reason for dodge catheter: Strict I&O Subjective Patient reports: Other (no events) Review of Systems: Deferred Objective vital signs Vital Sign Date Time Temp Pulse Resp B/P (MAP) Pulse Ox O2 Delivery O2 Flow Rate FiO2 01/05/25 17:00 97.3 81 16 126/72 (90) 99 97.3 01/05/25 14:00 Nasal Cannula* 2 28 Total Intake and Output 01/04/25 01/04/25 01/05/25 15:00 23:00 07:00 Intake Total 818 ml 777 ml 788 ml Output Total 1050 ml 700 ml Balance 818 ml -273 ml 88 ml medications Current Medications Medications Dose Ordered Sig/Go Route Start Time Stop Time Status Last Admin Dose Admin Ondansetron HCl 4 mg Q4HP PRN IV 12/31/24 13:15 01/01/25 16:23 4 MG Acetaminophen 650 mg Q6HP PRN PO 12/31/24 13:15 Diagnostic Test (Pha) 1 strip ACHS 12/31/24 17:00 01/05/25 16:53 1 STRIP Insulin Human Regular ACHS SC 12/31/24 17:00 01/05/25 13:15 2 UNITS Dextrose 50 ml UD PRN IV 12/31/24 13:45 Pantoprazole Sodium 50 ml @ 10 mls/hr Q5H IV 01/01/25 16:30 01/05/25 20:35 10 MLS/HR Octreotide Acetate 500 mcg/ Sodium Chloride 100 ml @ 10 mls/hr Q10H IV 01/03/25 09:00 01/05/25 12:50 10 MLS/HR Furosemide 40 mg DAILY IV 01/05/25 10:00 01/05/25 09:12 40 MG Amino Acids/ Electrolytes/ Dextrose 1,000 ml @ 41 mls/hr DAILY@2200 IV 01/04/25 22:00 01/05/25 21:59 01/04/25 21:14 41 MLS/HR Nystatin 5 ml QID MT 01/04/25 18:00 01/05/25 16:45 5 ML Sodium Chloride 10 ml QSHIFT@10,22 IV 01/04/25 22:00 01/05/25 09:12 10 ML Amino Acids 0 ml @ 0 mls/hr PER PHARMACY IV 01/05/25 11:00 Sodium Acetate 20 meq/Sodium Phosphate 10 meq/ Potassium Acetate 30 meq/Magnesium Sulfate 12 meq/ Multivitamins 10 ml/Chromium/ Copper/Manganese/ Zinc 1 ml/Amino Acids/Dextrose/ Purified Water 1,041.5 ml @ 43 mls/hr [id number] IV 01/05/25 22:00 01/06/25 21:59 Doxycycline Hyclate 100 ml @ 50 mls/hr Q12HR@0800 IV 01/05/25 20:00 01/05/25 20:26 50 MLS/HR Linezolid 300 ml @ 150 mls/hr Q12HR@0800 IV 01/06/25 08:00 Piperacillin Sod/ Tazobactam Sod 100 ml @ 25 mls/hr Q8HR IV 01/05/25 22:00 Examination: GENERAL:Abnormal, MSK:Abnormal (edema ), SKIN:Abnormal, NEURO:Normal laboratory and microbiology Laboratory Tests 01/05/25 03:13 Test 01/05/25 03:13 Range/Units Serum Glucose 117 H 74-106 mg/dL Microbiology Date/Time Source Procedure Growth Status 01/04/25 14:30 Ascities Fluid Gram Stain - Final Resulted 01/04/25 14:30 Ascities Fluid Body Fluid Culture - Preliminary Resulted 01/01/25 06:55 Nose MRSA Screen - Final Complete 12/31/24 19:44 Voided Urine Urine Culture - Final Complete 12/31/24 10:55 Blood Blood Culture - Final NO GROWTH AFTER 5 DAYS OF INCUBATION. Complete Problem List/Assessment/Plan Problem List/Assessment/Plan Acute kidney injury hemodynamic mediated etiology Chronic kidney disease IIIb Liver cancer Acute blood loss anemia status post multiple transfusions Recommendations DC IV fluids kcl replace bicarb replace Lasix IV as daily as patient appears swollen Rest of the management per primary We will follow closely Plan discussed with: Patient Dietary Evaluation Review Recommendations by RD: Protein Supplementation Comments: 1) If patient remains NPO > 7 days, consider EN/TPN to meet at least 75% daily estimated needs 2) Consider Pro-Stat @ 30 mL qd d/t increased protein needs 3) Initiate vitamin C @ 500 mg bid and zinc sulfate @ 220 mg qd for 7-10 days 4) Initiate multivitamin @ 1 tb qd 5) Advance to 60g CCHO low-fat diet when medically feasible, per [employer] approval 6) F/u with gastroenterology, oncology, and nephrology 7) Continue to monitor I&O, labs, and skin integrity Expected Outcomes/Goals: 1) Patient to receive nutritional support within 7 days 2) wound and labs to improve 3) diet to advance 4) f/u in 2-3 days LASHAY GAFFNEY MD Jan 05, 2025 20:47
--- NOTE | 2025-01-05 21:13 | DVHPN2 ---
Progress Note - Dictate Date Seen: Jan 05, 2025 Has the PT tested + for MRSA If YES, has PT been informed?: No Medical Necessity Reason Pt with a Central, PICC or Fol: Yes The following are medically ne: PICC Line, Dodge Catheter Reason for dodge catheter: Strict I&O Subjective H&H was stable for 24 hrr at 8.5; however patient did have another large tarry bowel movement this evening No further episodes of nausea vomiting or hematemesis Patient had a PICC line placed and will be started on TPN vital signs Vital Sign Date Time Temp Pulse Resp B/P (MAP) Pulse Ox O2 Delivery O2 Flow Rate FiO2 01/05/25 21:00 97.5 84 18 123/89 (100) 96 97.5 01/05/25 20:00 Nasal Cannula* 2 28 Total Intake and Output 01/04/25 01/04/25 01/05/25 15:00 23:00 07:00 Intake Total 818 ml 777 ml 788 ml Output Total 1050 ml 700 ml Balance 818 ml -273 ml 88 ml medications Current Medications Medications Dose Ordered Sig/Go Route Start Time Stop Time Status Last Admin Dose Admin Ondansetron HCl 4 mg Q4HP PRN IV 12/31/24 13:15 01/01/25 16:23 4 MG Acetaminophen 650 mg Q6HP PRN PO 12/31/24 13:15 Diagnostic Test (Pha) 1 strip ACHS 12/31/24 17:00 01/05/25 16:53 1 STRIP Insulin Human Regular ACHS SC 12/31/24 17:00 01/05/25 13:15 2 UNITS Dextrose 50 ml UD PRN IV 12/31/24 13:45 Pantoprazole Sodium 50 ml @ 10 mls/hr Q5H IV 01/01/25 16:30 01/05/25 20:35 10 MLS/HR Octreotide Acetate 500 mcg/ Sodium Chloride 100 ml @ 10 mls/hr Q10H IV 01/03/25 09:00 01/05/25 12:50 10 MLS/HR Furosemide 40 mg DAILY IV 01/05/25 10:00 01/05/25 09:12 40 MG Amino Acids/ Electrolytes/ Dextrose 1,000 ml @ 41 mls/hr DAILY@2200 IV 01/04/25 22:00 01/05/25 21:59 01/04/25 21:14 41 MLS/HR Nystatin 5 ml QID MT 01/04/25 18:00 01/05/25 16:45 5 ML Sodium Chloride 10 ml QSHIFT@10,22 IV 01/04/25 22:00 01/05/25 09:12 10 ML Amino Acids 0 ml @ 0 mls/hr PER PHARMACY IV 01/05/25 11:00 Sodium Acetate 20 meq/Sodium Phosphate 10 meq/ Potassium Acetate 30 meq/Magnesium Sulfate 12 meq/ Multivitamins 10 ml/Chromium/ Copper/Manganese/ Zinc 1 ml/Amino Acids/Dextrose/ Purified Water 1,041.5 ml @ 43 mls/hr [id number] IV 01/05/25 22:00 01/06/25 21:59 Doxycycline Hyclate 100 ml @ 50 mls/hr Q12HR@0800 IV 01/05/25 20:00 01/05/25 20:26 50 MLS/HR Linezolid 300 ml @ 150 mls/hr Q12HR@0800 IV 01/06/25 08:00 Piperacillin Sod/ Tazobactam Sod 100 ml @ 25 mls/hr Q8HR IV 01/05/25 22:00 objective General Appearance: Alert, Oriented X3, Cooperative, No acute distress, thin and cachectic HEENT: Atraumatic Lungs: Clear to auscultation Cardiovascular: Regular rate and rhythm Abdomen: Other nontender Extremities: 2+ pedal edema Neuro appears to be nonfocal laboratory and microbiology Laboratory Tests 01/05/25 03:13 Test 01/05/25 03:13 Range/Units Serum Glucose 117 H 74-106 mg/dL Problems(with codes): (1) GI bleed requiring more than 4 units of blood in 24 hours, ICU, or surgery (2) Elevated lactic acid level (3) Liver cancer (4) Sepsis (5) Leukocytosis (6) Anemia (7) Pneumonia Prognosis A/P 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 Patient may also be oozing from his liver mass as that could bleed into the GI tract Patient has received a total of 6 units PRBC and 2 of FFP and one cryoprecipitate Patient also received some vitamin K x3 doses Currently he is receiving IV iron infusion Patient still has mild coagulopathy improving;LFT's trending down His lactic acidosis is improving slightly Continue supportive care IV Protonix drip Patient is also currently on IV octreotide drip We will continue to monitor his labs and H&H every 12 hours Patient was denied transferred to [facility] I will follow up patient closely with you Start him on IV Clinimix at 42 mL/hour We will discuss endoscopic workup with family once the patient is stabilized If he remains stable over the next 24 hours then we will give him a trial of clear liquid Dietary Evaluation Review Recommendations by RD: Protein Supplementation Comments: 1) If patient remains NPO > 7 days, consider EN/TPN to meet at least 75% daily estimated needs 2) Consider Pro-Stat @ 30 mL qd d/t increased protein needs 3) Initiate vitamin C @ 500 mg bid and zinc sulfate @ 220 mg qd for 7-10 days 4) Initiate multivitamin @ 1 tb qd 5) Advance to 60g CCHO low-fat diet when medically feasible, per [employer] approval 6) F/u with gastroenterology, oncology, and nephrology 7) Continue to monitor I&O, labs, and skin integrity Expected Outcomes/Goals: 1) Patient to receive nutritional support within 7 days 2) wound and labs to improve 3) diet to advance 4) f/u in 2-3 days Plan discussed with: Other (ICU Nurse) TENA GUILLEN MD Jan 05, 2025 21:13
--- NOTE | 2025-01-05 21:38 | DVHPNRES ---
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 Khoi Kellogg), presented to the ED with generalized weakness, decreased appetite for 2 weeks Per daughter and granddaughter, he has had difficulty ambulating, increasing weakness (noticed while rising from the toilet), and poor oral intake. He was recently diagnosed with UTI and prescribed Keflex, though he has not been compliant with home medications including glipizide, metformin, and mirtazapine. EMS was called when he was found hypotensive at home (SBP in 70s). Upon arrival, he was alert and oriented but continued to endorse generalized weakness. He also has a productive cough and was noted to have bilateral pleural effusions on imaging. CT abdomen/pelvis revealed a large pancreatic head mass (17.3 x 10.3 cm), ascites, liver heterogeneity suggesting metastasis, and peritoneal involvement. 01/01/25: the patient had an episode of hematemesis with approximately 150 cc of bright red blood around 4:20 p.m., Also he was having multiple episodes of melena during the day The patient was started on a Protonix drip, NPO, and transfusion support. He received 1 unit PRBCs at 1 p.m. on 12/31 and is planned to receive an additional unit for ongoing bleeding along with FFP and IV iron. Upgraded to ICU status 01/02/25: During the night, patient had multiple bloody stools and melena, hb came 6: total 4RBC, 2 FFP, albumin and vitamin K, am, the hb 7,2, patient was placed on levophed, port cath and midline will be use to infuse, case discussed extensively with the family, full code, 1 unit of cryoprecipitate 01/04/25: hb is trending high, just 1 bowel movement yesterday, patient is on octeotride and PPI, OSKAR is worsening, furosemide started, paracentesis ordered 01/05/25: paracentesis 4L pulled out, albumin was given, stop fluid per nephro, TPN was started, hb stable, few bowel movements (black no red), patient is stable to go to the floor Objective vital signs Vital Sign Date Time Temp Pulse Resp B/P (MAP) Pulse Ox O2 Delivery O2 Flow Rate FiO2 01/05/25 21:00 97.5 84 18 123/89 (100) 96 97.5 01/05/25 20:00 Nasal Cannula* 2 28 Total Intake and Output 01/04/25 01/04/25 01/05/25 15:00 23:00 07:00 Intake Total 818 ml 777 ml 788 ml Output Total 1050 ml 700 ml Balance 818 ml -273 ml 88 ml medications Current Medications Medications Dose Ordered Sig/Go Route Start Time Stop Time Status Last Admin Dose Admin Ondansetron HCl 4 mg Q4HP PRN IV 12/31/24 13:15 01/01/25 16:23 4 MG Acetaminophen 650 mg Q6HP PRN PO 12/31/24 13:15 Diagnostic Test (Pha) 1 strip ACHS 12/31/24 17:00 01/05/25 21:24 1 STRIP Insulin Human Regular ACHS SC 12/31/24 17:00 01/05/25 13:15 2 UNITS Dextrose 50 ml UD PRN IV 12/31/24 13:45 Pantoprazole Sodium 50 ml @ 10 mls/hr Q5H IV 01/01/25 16:30 01/05/25 20:35 10 MLS/HR Octreotide Acetate 500 mcg/ Sodium Chloride 100 ml @ 10 mls/hr Q10H IV 01/03/25 09:00 01/05/25 21:12 10 MLS/HR Furosemide 40 mg DAILY IV 01/05/25 10:00 01/05/25 09:12 40 MG Amino Acids/ Electrolytes/ Dextrose 1,000 ml @ 41 mls/hr DAILY@2200 IV 01/04/25 22:00 01/05/25 21:59 01/04/25 21:14 41 MLS/HR Nystatin 5 ml QID MT 01/04/25 18:00 01/05/25 21:23 5 ML Sodium Chloride 10 ml QSHIFT@10,22 IV 01/04/25 22:00 01/05/25 21:23 10 ML Amino Acids 0 ml @ 0 mls/hr PER PHARMACY IV 01/05/25 11:00 Sodium Acetate 20 meq/Sodium Phosphate 10 meq/ Potassium Acetate 30 meq/Magnesium Sulfate 12 meq/ Multivitamins 10 ml/Chromium/ Copper/Manganese/ Zinc 1 ml/Amino Acids/Dextrose/ Purified Water 1,041.5 ml @ 43 mls/hr [id number] IV 01/05/25 22:00 01/06/25 21:59 Doxycycline Hyclate 100 ml @ 50 mls/hr Q12HR@08 IV 01/05/25 20:00 01/05/25 20:26 50 MLS/HR Linezolid 300 ml @ 150 mls/hr Q12HR@0800 IV 01/06/25 08:00 Piperacillin Sod/ Tazobactam Sod 100 ml @ 25 mls/hr Q8HR IV 01/05/25 22:00 Examination General: NAD, AAOx3 HEENT: No icterus, pallor; hematemesis Lungs: Clear to auscultation bilaterally Heart: RRR, no murmurs Abdomen: less distended , tender in the lower abdomen +BS, Extremities: No edema Skin: No rash or bruising laboratory and microbiology Laboratory Tests 01/05/25 03:13 Test 01/05/25 03:13 Range/Units Serum Glucose 117 H 74-106 mg/dL Microbiology Date/Time Source Procedure Growth Status 01/04/25 14:30 Ascities Fluid Gram Stain - Final Resulted 01/04/25 14:30 Ascities Fluid Body Fluid Culture - Preliminary Resulted 01/01/25 06:55 Nose MRSA Screen - Final Complete 12/31/24 19:44 Voided Urine Urine Culture - Final Complete 12/31/24 10:55 Blood Blood Culture - Final NO GROWTH AFTER 5 DAYS OF INCUBATION. Complete Problem List/Assessment/Plan Problem List/Assessment/Plan GI: #Hemorrhagic shock # Upper and lower GI Bleed likely secondary to malignancy/portal hypertension/chemotherapy enterocolitis # Anemia acute blood loss anemia from GI bleed. off levophed since 2 days ago few BM: black no red On IV PPI and octeotride drip. GI consulted. Transfusion with 6 PRBCs, 2 FFP and 1 cryoprecipitates Albumin and vitamin K NPO TPN Iron IV IMAGING: CT Abd/Pelvis (12/31): Large pancreatic head mass (17.3 x 10.3 cm), liver heterogeneity, peritoneal involvement, small ascites, bilateral pleural effusions (left > right), no intra-abdominal lymphadenopathy Last EGD: August 2024 No colonoscopy on file #Hepatocellular carcinoma stage 3a #Transaminitis #Hyperbilirubinemia #Pancreatic Mass? newly identified, large mass being followed by Dr. Kellogg at [facility], last chemo 12/11. Patient is not stable enough for further images #Ascites likely malignant. Paracentesis ordered: 4LT, albumin replaced Pulmonary #Sepsis: #Acute respiratory failure #PNA? gram neg/ gram + #bilateral pleural effusions (left > right) possible aspiration Zosyn, linezolid and doxycycline IV O2 2 LT Endocrinology #Type 2 Diabetes Mellitus NPO status Sliding scale insulin. #HTN stable monitor BP. Renal #Hyponatremia, resolved #Hyperkalemia, resolved #Hypomagnesemia, resolved #Hypokalemia, mild #OSKAR, vasomotor mediated #CKD stage 3b stop iv fluids Nephro on the case furosemide started kidney US: normal urine studies pending dodge catheter #UTI (recent) Completed Keflex at home Zosyn IV Goals of care discussed with the patient and his for 20 minutes; full code 160 minutes of critical care time Case discussed with Dr Bryan Plan discussed with: Patient, Other (rn) My Orders My Orders Orders - LINO SHERMAN RESIDENT Procedure Category Date Status Time Tpn Per Pharmacy [facility] 01/05/25 In Process 09:01 Tpn Per Pharmacy [facility] 01/05/25 In Process 11:00 Amino Acid PHA 01/05/25 In Process Infusion... W/Sodium 22:00 Comprehensive LAB 01/06/25 Verified Metabolic Panel 06:00 Magnesium LAB 01/06/25 Verified 06:00 Phosphorus LAB 01/06/25 Verified 06:00 Tpn Per Pharmacy [facility] 01/05/25 In Process 22:00 Dietary Evaluation Review Recommendations by RD: Protein Supplementation Comments: 1) If patient remains NPO > 7 days, consider EN/TPN to meet at least 75% daily estimated needs 2) Consider Pro-Stat @ 30 mL qd d/t increased protein needs 3) Initiate vitamin C @ 500 mg bid and zinc sulfate @ 220 mg qd for 7-10 days 4) Initiate multivitamin @ 1 tb qd 5) Advance to 60g CCHO low-fat diet when medically feasible, per [employer] approval 6) F/u with gastroenterology, oncology, and nephrology 7) Continue to monitor I&O, labs, and skin integrity Expected Outcomes/Goals: 1) Patient to receive nutritional support within 7 days 2) wound and labs to improve 3) diet to advance 4) f/u in 2-3 days Date of Service: Jan 05, 2025 Billing Provider: CLAUDETTE BRYAN DO Common Visit Codes: [id number] INP/OBS CARE(HIGH) LINO SHERMAN RESIDENT Jan 05, 2025 21:38 CLAUDETTE BRYAN DO Jan 06, 2025 20:55
[2025-01-05] MEDS: TPN PER PHARMACY IV NR (22:14)
[2025-01-05] MEDS: PIPERACILLIN-TAZOB 3.375GM 100 ML IV SCH (22:33)
[2025-01-06] VITALS (8 sets, daily range): BP systolic 102–122; BP diastolic 53–67; PULSE 85–95; RESP 16–18; TEMP 97.2–98.1; O2SAT 95–98
[2025-01-06 07:51] LABS: Basophils # (auto) 0 10 ^3/uL (0-0.2); Basophils % (auto) 0.2 % (0.0-2.0); Eosinophils # (auto) 0 10 ^3/uL (0-0.8); Eosinophils % (auto) 0.2 % (0.0-7.0); Hematocrit 26.3 % (41.0-53.0); Hemoglobin 8.6 g/dL (13.5-17.5); Lymphocytes # (auto) 5.2 10 ^3/uL (0.4-5.4); Lymphocytes % (auto) 43.1 % (10.0-50.0); Mean Corpuscular Hemoglobin 28.9 pg (28.0-32.0); Mean Corpuscular Hgb Conc. 32.6 g/dL (32.0-36.0); Mean Corpuscular Volume 88.7 fL (80.0-100.0); Monocytes # (auto) 0.5 10 ^3/uL (0-1.3); Monocytes % (auto) 4.3 % (0.0-12.0); Neutrophils # (auto) 6.3 10 ^3/uL (1.6-8.6); Neutrophils % (auto) 52.2 % (37.0-80.0); Nucleated Red Blood Cells % 1.1 %; Platelet Count (auto) 95 10^3/uL (140-450); Red Blood Cells 2.96 10^6/uL (4.5-5.90); Red Cell Distribution Width 20.7 % (11.8-14.3); White Blood Cell 12.2 10^3/uL (4.4-10.8)
[2025-01-06 08:03] LABS: Anion Gap 11 (5-15); BUN/Creatinine Ratio 30.9 (10.0-20.0); Carbon Dioxide 20 mmol/L (20-31); Sodium 139 mmol/L (136-145)
[2025-01-06 08:11] LABS: Alanine Aminotransferase 117 U/L (7-40); Alkaline Phosphatase 125 U/L (46-116); Aspartate Aminotransferase 375 U/L (13-40); Bilirubin, Total 1.7 mg/dL (0.2-1.0); Blood Urea Nitrogen 47 mg/dL (9-23); Calcium 7.7 mg/dL (8.7-10.4); Chloride 108 mmol/L (98-107); Glucose 194 mg/dL (74-106); Magnesium 1.5 mg/dL (1.6-2.6); Phosphorus 2.4 mg/dL (2.4-5.1); Potassium 3.4 mmol/L (3.5-5.1); Total Protein 4.3 g/dL (5.7-8.2)
[2025-01-06] MEDS: LINEZOLID 600MG/300ML 300 ML IV SCH (09:06)
[2025-01-06 11:08] LABS: Base Excess -4.2 mmol/L (-2.0-3.0)
--- NOTE | 2025-01-06 11:23 | DVH ---
CHEST RADIOGRAPH Indication: pneumonia Technique: Single frontal view of the chest was obtained Comparison: XY CHEST PORTABLE on DOS: 01/04/25, XY CHEST XRAY 1 VIEW on DOS: 01/02/25, XY CHEST PORTABL E on DOS: 12/31/24, XY CHEST PORTABLE on DOS: 01/04/25 FINDINGS: Lines and Tubes: PICC line is seen in the superior vena cava proximally. Right-sided port-A-Cath unch anged in the in the superior vena cava Lungs: Bilateral pulmonary infiltrates, increased since the prior study. Effacement both hemidiaphrag ms. Pleura: No effusion. No pneumothorax. Cardiomediastinal contours: Unremarkable Bones: Unremarkable IMPRESSION: 1. Left-sided PICC line is in the proximal superior vena cava Increasing bilateral pulmonary infiltrates
[2025-01-06] MEDS: POTASSIUM CHLORIDE 40 MEQ, LIDOCAINE 1% (LOCAL ANESTH.) 4 ML in SODIUM CHL 0.9% 250 ML IV ONE (11:35)
--- NOTE | 2025-01-06 15:38 | DVHPNRES ---
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 Khoi Kellogg), presented to the ED with generalized weakness, decreased appetite for 2 weeks Per daughter and granddaughter, he has had difficulty ambulating, increasing weakness (noticed while rising from the toilet), and poor oral intake. He was recently diagnosed with UTI and prescribed Keflex, though he has not been compliant with home medications including glipizide, metformin, and mirtazapine. EMS was called when he was found hypotensive at home (SBP in 70s). Upon arrival, he was alert and oriented but continued to endorse generalized weakness. He also has a productive cough and was noted to have bilateral pleural effusions on imaging. CT abdomen/pelvis revealed a large pancreatic head mass (17.3 x 10.3 cm), ascites, liver heterogeneity suggesting metastasis, and peritoneal involvement. 01/01/25: the patient had an episode of hematemesis with approximately 150 cc of bright red blood around 4:20 p.m., Also he was having multiple episodes of melena during the day The patient was started on a Protonix drip, NPO, and transfusion support. He received 1 unit PRBCs at 1 p.m. on 12/31 and is planned to receive an additional unit for ongoing bleeding along with FFP and IV iron. Upgraded to ICU status 01/02/25: During the night, patient had multiple bloody stools and melena, hb came 6: total 4RBC, 2 FFP, albumin and vitamin K, am, the hb 7,2, patient was placed on levophed, port cath and midline will be use to infuse, case discussed extensively with the family, full code, 1 unit of cryoprecipitate 01/04/25: hb is trending high, just 1 bowel movement yesterday, patient is on octeotride and PPI, OSKAR is worsening, furosemide started, paracentesis ordered 01/05/25: paracentesis 4L pulled out, albumin was given, stop fluid per nephro, TPN was started, hb stable, few bowel movements (black no red), patient is stable to go to the floor 01/06/25: hb stable, few bowel movements dark, no blood, wbc and crp are slightly elevated, continue AB, x ray showed more pulmonary congestion increase lasix bid, GI advanced diet to ice chips Objective vital signs Vital Sign Date Time Temp Pulse Resp B/P (MAP) Pulse Ox O2 Delivery O2 Flow Rate FiO2 01/06/25 13:00 97.9 89 17 119/63 (81) 95 97.9 01/06/25 07:40 Nasal Cannula* 2 28 Total Intake and Output 01/05/25 01/05/25 01/06/25 14:59 22:59 06:59 Intake Total 1397.0 ml 1156 ml 300 ml Output Total 1515 ml 1550 ml Balance 1397.0 ml -359 ml -1250 ml medications Current Medications Medications Dose Ordered Sig/Go Route Start Time Stop Time Status Last Admin Dose Admin Ondansetron HCl 4 mg Q4HP PRN IV 12/31/24 13:15 01/01/25 16:23 4 MG Acetaminophen 650 mg Q6HP PRN PO 12/31/24 13:15 Diagnostic Test (Pha) 1 strip ACHS 12/31/24 17:00 01/06/25 11:30 1 STRIP Insulin Human Regular ACHS SC 12/31/24 17:00 01/06/25 11:32 4 UNITS Dextrose 50 ml UD PRN IV 12/31/24 13:45 Pantoprazole Sodium 50 ml @ 10 mls/hr Q5H IV 01/01/25 16:30 01/06/25 11:26 10 MLS/HR Octreotide Acetate 500 mcg/ Sodium Chloride 100 ml @ 10 mls/hr Q10H IV 01/03/25 09:00 01/06/25 07:00 10 MLS/HR Nystatin 5 ml QID MT 01/04/25 18:00 01/06/25 11:29 5 ML Sodium Chloride 10 ml QSHIFT@10,22 IV 01/04/25 22:00 01/06/25 09:06 10 ML Amino Acids 0 ml @ 0 mls/hr PER PHARMACY IV 01/05/25 11:00 Sodium Acetate 20 meq/Sodium Phosphate 10 meq/ Potassium Acetate 30 meq/Magnesium Sulfate 12 meq/ Multivitamins 10 ml/Chromium/ Copper/Manganese/ Zinc 1 ml/Amino Acids/Dextrose/ Purified Water 1,041.5 ml @ 43 mls/hr [id number] IV 01/05/25 22:00 01/06/25 21:59 01/05/25 22:14 43 MLS/HR Doxycycline Hyclate 100 ml @ 50 mls/hr Q12HR@08 IV 01/05/25 20:00 01/06/25 09:06 50 MLS/HR Linezolid 300 ml @ 150 mls/hr Q12HR@08 IV 01/06/25 08:00 01/06/25 09:06 150 MLS/HR Piperacillin Sod/ Tazobactam Sod 100 ml @ 25 mls/hr Q8HR IV 01/05/25 22:00 01/06/25 14:22 25 MLS/HR Fat Emulsion Intravenous 50 ml/ Sodium Chloride 10 meq/Sodium Phosphate 20 meq/ Potassium Phosphate 20 meq/ Magnesium Sulfate 16 meq/ Multivitamins 10 ml/Amino Acids/ Dextrose/Purified Water 1,076.0455 ml @ 45 mls/hr [id number] IV 01/06/25 22:00 01/07/25 21:59 Furosemide 40 mg BIDD IV 01/06/25 22:00 Examination General: NAD, AAOx3 HEENT: No icterus, pallor; hematemesis Lungs: Clear to auscultation bilaterally Heart: RRR, no murmurs Abdomen: distended , tender in the lower abdomen +BS, Extremities: No edema Skin: No rash or bruising laboratory and microbiology Laboratory Tests 01/06/25 07:00 Test 01/06/25 07:00 Range/Units Serum Glucose 194 H 74-106 mg/dL Microbiology Date/Time Source Procedure Growth Status 01/04/25 14:30 Ascities Fluid Gram Stain - Final Resulted 01/04/25 14:30 Ascities Fluid Body Fluid Culture - Preliminary Resulted 01/01/25 06:55 Nose MRSA Screen - Final Complete 12/31/24 19:44 Voided Urine Urine Culture - Final Complete 12/31/24 10:55 Blood Blood Culture - Final NO GROWTH AFTER 5 DAYS OF INCUBATION. Complete Problem List/Assessment/Plan Problem List/Assessment/Plan GI: #Hemorrhagic shock # Upper and lower GI Bleed likely secondary to malignancy/portal hypertension/chemotherapy enterocolitis # Anemia acute blood loss anemia from GI bleed. off levophed since 2 days ago few BM: black no red On IV PPI drip DC octeotride drip . GI consulted. Transfusion with 6 PRBCs, 2 FFP and 1 cryoprecipitates Albumin and vitamin K NPO TPN Iron IV IMAGING: CT Abd/Pelvis (12/31): Large pancreatic head mass (17.3 x 10.3 cm), liver heterogeneity, peritoneal involvement, small ascites, bilateral pleural effusions (left > right), no intra-abdominal lymphadenopathy Last EGD: August 2024 No colonoscopy on file #Hepatocellular carcinoma stage 3a #Transaminitis #Hyperbilirubinemia #Pancreatic Mass? newly identified, large mass being followed by Dr. Kellogg at [facility], last chemo 12/11. Patient is not stable enough for further images #Ascites likely malignant. Paracentesis ordered: 4LT, albumin replaced Pulmonary #Sepsis: #Acute hypoxic respiratory failure #PNA? gram neg/ gram + #bilateral pleural effusions (left > right) possible aspiration Zosyn, linezolid and doxycycline IV O2 2 LT More pulmonary congestion Increase lasix BID Endocrinology #Type 2 Diabetes Mellitus NPO status Sliding scale insulin. #HTN stable monitor BP. Renal #Hyponatremia, resolved #Hyperkalemia, resolved #Hypomagnesemia, resolved #Hypokalemia, mild #OSKAR, vasomotor mediated #CKD stage 3b stop iv fluids Nephro on the case furosemide 40 mg bid kidney US: normal urine studies pending dodge catheter #UTI (recent) Completed Keflex at home Zosyn IV Goals of care discussed with the patient and his daughters for 20 minutes; full code Case discussed with Dr Bryan Plan discussed with: Patient, Other (rn) My Orders My Orders Orders - LINO SHERMAN RESIDENT Procedure Category Date Status Time Abg W/ Co-Ox RT 01/06/25 Logged 09:10 Chest Xray 1 View XY 01/06/25 Resulted 10:19 * [employer] CONS 01/06/25 Transmitted Consult Amino Acid PHA 01/06/25 In Process Infusion... W/Fat 22:00 Nursing Protocol For LUDWIG 01/06/25 In Process TPN 22:00 Comprehensive LAB 01/07/25 Verified Metabolic Panel 05:00 Phosphorus LAB 01/07/25 Verified 05:00 Magnesium LAB 01/07/25 Verified 05:00 Furosemide Injection PHA 01/06/25 In Process (Lasix Injection) 22:00 Tpn Per Pharmacy [facility] 01/06/25 In Process 22:00 Dietary Evaluation Review Recommendations by RD: Protein Supplementation Comments: 1) If patient remains NPO > 7 days, consider EN/TPN to meet at least 75% daily estimated needs 2) Consider Pro-Stat @ 30 mL qd d/t increased protein needs 3) Initiate vitamin C @ 500 mg bid and zinc sulfate @ 220 mg qd for 7-10 days 4) Initiate multivitamin @ 1 tb qd 5) Advance to 60g CCHO low-fat diet when medically feasible, per TOE POUNDER approval 6) F/u with gastroenterology, oncology, and nephrology 7) Continue to monitor I&O, labs, and skin integrity Expected Outcomes/Goals: 1) Patient to receive nutritional support within 7 days 2) wound and labs to improve 3) diet to advance 4) f/u in 2-3 days Date of Service: Jan 06, 2025 Billing Provider: CLAUDETTE BRYAN DO Common Visit Codes: [id number] INP/OBS CARE(HIGH) LINO SHERMAN RESIDENT Jan 06, 2025 15:38 CLAUDETTE BRYAN DO Jan 06, 2025 20:54
--- NOTE | 2025-01-06 16:13 | DVHPN2 ---
Progress Note Date Seen: Jan 06, 2025 Has the PT tested + for MRSA If YES, has PT been informed?: No Medical Necessity Reason Pt with a Central, PICC or Fol: Yes The following are medically ne: PICC Line, Dodge Catheter Reason for dodge catheter: Strict I&O Subjective Patient reports: Other (downgraded from icu) Review of Systems: Deferred Objective vital signs Vital Sign Date Time Temp Pulse Resp B/P (MAP) Pulse Ox O2 Delivery O2 Flow Rate FiO2 01/06/25 13:00 97.9 89 17 119/63 (81) 95 97.9 01/06/25 07:40 Nasal Cannula* 2 28 Total Intake and Output 01/05/25 01/05/25 01/06/25 15:00 23:00 07:00 Intake Total 1397.0 ml 1070 ml 300 ml Output Total 1515 ml 1550 ml Balance 1397.0 ml -445 ml -1250 ml medications Current Medications Medications Dose Ordered Sig/Go Route Start Time Stop Time Status Last Admin Dose Admin Ondansetron HCl 4 mg Q4HP PRN IV 12/31/24 13:15 01/01/25 16:23 4 MG Acetaminophen 650 mg Q6HP PRN PO 12/31/24 13:15 Diagnostic Test (Pha) 1 strip ACHS 12/31/24 17:00 01/06/25 11:30 1 STRIP Insulin Human Regular ACHS SC 12/31/24 17:00 01/06/25 11:32 4 UNITS Dextrose 50 ml UD PRN IV 12/31/24 13:45 Pantoprazole Sodium 50 ml @ 10 mls/hr Q5H IV 01/01/25 16:30 01/06/25 11:26 10 MLS/HR Octreotide Acetate 500 mcg/ Sodium Chloride 100 ml @ 10 mls/hr Q10H IV 01/03/25 09:00 01/06/25 07:00 10 MLS/HR Nystatin 5 ml QID MT 01/04/25 18:00 01/06/25 11:29 5 ML Sodium Chloride 10 ml QSHIFT@10,22 IV 01/04/25 22:00 01/06/25 09:06 10 ML Amino Acids 0 ml @ 0 mls/hr PER PHARMACY IV 01/05/25 11:00 Sodium Acetate 20 meq/Sodium Phosphate 10 meq/ Potassium Acetate 30 meq/Magnesium Sulfate 12 meq/ Multivitamins 10 ml/Chromium/ Copper/Manganese/ Zinc 1 ml/Amino Acids/Dextrose/ Purified Water 1,041.5 ml @ 43 mls/hr [id number] IV 01/05/25 22:00 01/06/25 21:59 01/05/25 22:14 43 MLS/HR Doxycycline Hyclate 100 ml @ 50 mls/hr Q12HR@08,1999 IV 01/05/25 20:00 01/06/25 09:06 50 MLS/HR Linezolid 300 ml @ 150 mls/hr Q12HR@0800,1999 IV 01/06/25 08:00 01/06/25 09:06 150 MLS/HR Piperacillin Sod/ Tazobactam Sod 100 ml @ 25 mls/hr Q8HR IV 01/05/25 22:00 01/06/25 14:22 25 MLS/HR Fat Emulsion Intravenous 50 ml/ Sodium Chloride 10 meq/Sodium Phosphate 20 meq/ Potassium Phosphate 20 meq/ Magnesium Sulfate 16 meq/ Multivitamins 10 ml/Amino Acids/ Dextrose/Purified Water 1,076.0455 ml @ 45 mls/hr [id number] IV 01/06/25 22:00 01/07/25 21:59 Furosemide 40 mg BIDD IV 01/06/25 22:00 Examination: LUNGS:Abnormal, MSK:Abnormal (edema), NEURO:Normal laboratory and microbiology Laboratory Tests 01/06/25 07:00 Test 01/06/25 07:00 Range/Units Serum Glucose 194 H 74-106 mg/dL Microbiology Date/Time Source Procedure Growth Status 01/04/25 14:30 Ascities Fluid Gram Stain - Final Resulted 01/04/25 14:30 Ascities Fluid Body Fluid Culture - Preliminary Resulted 01/01/25 06:55 Nose MRSA Screen - Final Complete 12/31/24 19:44 Voided Urine Urine Culture - Final Complete 12/31/24 10:55 Blood Blood Culture - Final NO GROWTH AFTER 5 DAYS OF INCUBATION. Complete Problem List/Assessment/Plan Problem List/Assessment/Plan Acute kidney injury hemodynamic mediated etiology Chronic kidney disease IIIb Liver cancer Acute blood loss anemia status post multiple transfusions gi bleed hypokalemia Recommendations Lasix IV continue as patient appears swollen--titrate as tolerated Rest of the management per primary Plan discussed with: Patient, Other Dietary Evaluation Review Recommendations by RD: Protein Supplementation Comments: 1) If patient remains NPO > 7 days, consider EN/TPN to meet at least 75% daily estimated needs 2) Consider Pro-Stat @ 30 mL qd d/t increased protein needs 3) Initiate vitamin C @ 500 mg bid and zinc sulfate @ 220 mg qd for 7-10 days 4) Initiate multivitamin @ 1 tb qd 5) Advance to 60g CCHO low-fat diet when medically feasible, per STAFF DEVELOPMENT NURSE approval 6) F/u with gastroenterology, oncology, and nephrology 7) Continue to monitor I&O, labs, and skin integrity Expected Outcomes/Goals: 1) Patient to receive nutritional support within 7 days 2) wound and labs to improve 3) diet to advance 4) f/u in 2-3 days LASHAY GAFFNEY MD Jan 06, 2025 16:13
--- NOTE | 2025-01-06 16:39 | DVHPN2 ---
Progress Note - Dictate Date Seen: Jan 06, 2025 Has the PT tested + for MRSA If YES, has PT been informed?: No Medical Necessity Reason Pt with a Central, PICC or Fol: Yes The following are medically ne: PICC Line, Dodge Catheter Reason for dodge catheter: Strict I&O Subjective H&H stable at 8.6; only a small smear of residual dark stool No further episodes of nausea vomiting or hematemesis Patient had a PICC line placed and patient has been started on TPN vital signs Vital Sign Date Time Temp Pulse Resp B/P (MAP) Pulse Ox O2 Delivery O2 Flow Rate FiO2 01/06/25 13:00 97.9 89 17 119/63 (81) 95 97.9 01/06/25 07:40 Nasal Cannula* 2 28 Total Intake and Output 01/05/25 01/05/25 01/06/25 15:00 23:00 07:00 Intake Total 1397.0 ml 1070 ml 300 ml Output Total 1515 ml 1550 ml Balance 1397.0 ml -445 ml -1250 ml medications Current Medications Medications Dose Ordered Sig/Go Route Start Time Stop Time Status Last Admin Dose Admin Ondansetron HCl 4 mg Q4HP PRN IV 12/31/24 13:15 01/01/25 16:23 4 MG Acetaminophen 650 mg Q6HP PRN PO 12/31/24 13:15 Diagnostic Test (Pha) 1 strip ACHS 12/31/24 17:00 01/06/25 11:30 1 STRIP Insulin Human Regular ACHS SC 12/31/24 17:00 01/06/25 11:32 4 UNITS Dextrose 50 ml UD PRN IV 12/31/24 13:45 Pantoprazole Sodium 50 ml @ 10 mls/hr Q5H IV 01/01/25 16:30 01/06/25 11:26 10 MLS/HR Octreotide Acetate 500 mcg/ Sodium Chloride 100 ml @ 10 mls/hr Q10H IV 01/03/25 09:00 01/06/25 07:00 10 MLS/HR Nystatin 5 ml QID MT 01/04/25 18:00 01/06/25 11:29 5 ML Sodium Chloride 10 ml QSHIFT@10,22 IV 01/04/25 22:00 01/06/25 09:06 10 ML Amino Acids 0 ml @ 0 mls/hr PER PHARMACY IV 01/05/25 11:00 Sodium Acetate 20 meq/Sodium Phosphate 10 meq/ Potassium Acetate 30 meq/Magnesium Sulfate 12 meq/ Multivitamins 10 ml/Chromium/ Copper/Manganese/ Zinc 1 ml/Amino Acids/Dextrose/ Purified Water 1,041.5 ml @ 43 mls/hr [id number] IV 01/05/25 22:00 01/06/25 21:59 01/05/25 22:14 43 MLS/HR Doxycycline Hyclate 100 ml @ 50 mls/hr Q12HR@08 IV 01/05/25 20:00 01/06/25 09:06 50 MLS/HR Linezolid 300 ml @ 150 mls/hr Q12HR@0800 IV 01/06/25 08:00 01/06/25 09:06 150 MLS/HR Piperacillin Sod/ Tazobactam Sod 100 ml @ 25 mls/hr Q8HR IV 01/05/25 22:00 01/06/25 14:22 25 MLS/HR Fat Emulsion Intravenous 50 ml/ Sodium Chloride 10 meq/Sodium Phosphate 20 meq/ Potassium Phosphate 20 meq/ Magnesium Sulfate 16 meq/ Multivitamins 10 ml/Amino Acids/ Dextrose/Purified Water 1,076.0455 ml @ 45 mls/hr [id number] IV 01/06/25 22:00 01/07/25 21:59 Furosemide 40 mg BIDD IV 01/06/25 22:00 objective General Appearance: Alert, Oriented X3, Cooperative, No acute distress, thin and cachectic HEENT: Atraumatic Lungs: Clear to auscultation Cardiovascular: Regular rate and rhythm Abdomen: Other nontender Extremities: 2+ pedal edema Neuro appears to be nonfocal laboratory and microbiology Laboratory Tests 01/06/25 07:00 Test 01/06/25 07:00 Range/Units Serum Glucose 194 H 74-106 mg/dL Problems(with codes): (1) GI bleed (2) GI bleed requiring more than 4 units of blood in 24 hours, ICU, or surgery (3) Elevated lactic acid level (4) Liver cancer (5) Sepsis (6) Leukocytosis (7) Anemia Prognosis Plan Continue supportive care I will probably start tapering off his IV octreotide Possibly start him on some ice chips Continue to monitor labs I will discuss with the family about any endoscopic workup Patient will likely follow up with his oncologist at [facility] for further management Dietary Evaluation Review Recommendations by RD: Protein Supplementation Comments: 1) If patient remains NPO > 7 days, consider EN/TPN to meet at least 75% daily estimated needs 2) Consider Pro-Stat @ 30 mL qd d/t increased protein needs 3) Initiate vitamin C @ 500 mg bid and zinc sulfate @ 220 mg qd for 7-10 days 4) Initiate multivitamin @ 1 tb qd 5) Advance to 60g CCHO low-fat diet when medically feasible, per NEWS CAMERA PERSON approval 6) F/u with gastroenterology, oncology, and nephrology 7) Continue to monitor I&O, labs, and skin integrity Expected Outcomes/Goals: 1) Patient to receive nutritional support within 7 days 2) wound and labs to improve 3) diet to advance 4) f/u in 2-3 days Plan discussed with: Other (Nurse) TENA GUILLEN MD Jan 06, 2025 16:39
--- NOTE | 2025-01-06 21:20 | DVHPN2 ---
Progress Note - Dictate Date Seen: Jan 06, 2025 Has the PT tested + for MRSA If YES, has PT been informed?: No Medical Necessity Reason Pt with a Central, PICC or Fol: Yes The following are medically ne: PICC Line, Dodge Catheter Reason for dodge catheter: Strict I&O Subjective Patient seen and examined at bedside. Remains on supplemental oxygen Overnight events reviewed. vital signs Vital Sign Date Time Temp Pulse Resp B/P (MAP) Pulse Ox O2 Delivery O2 Flow Rate FiO2 01/06/25 20:00 Nasal Cannula* 1 24 01/06/25 17:00 97.2 88 17 102/53 (69) 95 97.2 Total Intake and Output 01/05/25 01/05/25 01/06/25 15:00 23:00 07:00 Intake Total 1397.0 ml 1070 ml 300 ml Output Total 1515 ml 1550 ml Balance 1397.0 ml -445 ml -1250 ml medications Current Medications Medications Dose Ordered Sig/Go Route Start Time Stop Time Status Last Admin Dose Admin Ondansetron HCl 4 mg Q4HP PRN IV 12/31/24 13:15 01/01/25 16:23 4 MG Acetaminophen 650 mg Q6HP PRN PO 12/31/24 13:15 Diagnostic Test (Pha) 1 strip ACHS 12/31/24 17:00 01/06/25 16:46 1 STRIP Insulin Human Regular ACHS SC 12/31/24 17:00 01/06/25 17:01 2 UNITS Dextrose 50 ml UD PRN IV 12/31/24 13:45 Pantoprazole Sodium 50 ml @ 10 mls/hr Q5H IV 01/01/25 16:30 01/06/25 16:45 10 MLS/HR Nystatin 5 ml QID MT 01/04/25 18:00 01/06/25 16:46 5 ML Sodium Chloride 10 ml QSHIFT@10,22 IV 01/04/25 22:00 01/06/25 09:06 10 ML Amino Acids 0 ml @ 0 mls/hr PER PHARMACY IV 01/05/25 11:00 Sodium Acetate 20 meq/Sodium Phosphate 10 meq/ Potassium Acetate 30 meq/Magnesium Sulfate 12 meq/ Multivitamins 10 ml/Chromium/ Copper/Manganese/ Zinc 1 ml/Amino Acids/Dextrose/ Purified Water 1,041.5 ml @ 43 mls/hr [id number] IV 01/05/25 22:00 01/06/25 21:59 01/05/25 22:14 43 MLS/HR Doxycycline Hyclate 100 ml @ 50 mls/hr Q12HR@08,1999 IV 01/05/25 20:00 01/06/25 19:25 50 MLS/HR Linezolid 300 ml @ 150 mls/hr Q12HR@08 IV 01/06/25 08:00 01/06/25 19:25 150 MLS/HR Piperacillin Sod/ Tazobactam Sod 100 ml @ 25 mls/hr Q8HR IV 01/05/25 22:00 01/06/25 14:22 25 MLS/HR Fat Emulsion Intravenous 50 ml/ Sodium Chloride 10 meq/Sodium Phosphate 20 meq/ Potassium Phosphate 20 meq/ Magnesium Sulfate 16 meq/ Multivitamins 10 ml/Amino Acids/ Dextrose/Purified Water 1,076.0455 ml @ 45 mls/hr [id number] IV 01/06/25 22:00 01/07/25 21:59 Furosemide 40 mg BIDD IV 01/06/25 22:00 objective Gen.: Patient lying in bed in no apparent distress. On supplemental oxygen. Head: Normocephalic, atraumatic. Eyes: EOMI/PERRLA. Ears: Normal hearing. Normal anatomy. Neck/trachea: Trachea midline, supple. Nose: Normal external anatomy. Mouth: Moist mucous membranes. Chest: Decreased air entry bilaterally. No wheezing or rhonchi. Cardiovascular: Positive S1, positive S2. Regular rate and rhythm. Abdomen: Positive bowel sounds in all 4 quadrants. Soft, non-tender, non- distended. : Deferred. Rectal: Deferred. Skin: Warm, dry. Intact. Extremities: 2+ radial pulses bilaterally. No lower extremity edema. Neuro: Awake, alert, oriented x3. No gross motor or sensory deficits. Cranial nerves II through XII intact. Gait not assessed. laboratory and microbiology Laboratory Tests 01/06/25 07:00 Test 01/06/25 07:00 Range/Units Serum Glucose 194 H 74-106 mg/dL Assessment/Plan Impression: Acute hypoxic respiratory failure Dependence on supplemental oxygen Acute GI hemorrhage Anemia 2/2 GI hemorrhage Hypovolemic shock. Events: Remains on supplemental oxygen On 2 LPM --> 1 LPM NC Taper O2 as tolerated Improved O2 requirements Arrange for home oxygen Patient is out of bed to chair, ambulating. S/p paracentesis 01/04 with 4 liters removed Ascitic fluid cultures show no growth Nephrology recommendations appreciated for worsening renal failure Head of bed elevation Aspiration precautions Incentive spirometry Continue antibiotics Octreotide drip Protonix Monitor hemoglobin - stable. Transfuse if less than 7.0 g/dL. Follow up GI recommendations. Continue TPN for nutritional support Diurese w/ Lasix Monitor renal function. Monitor electrolytes. Supplement as necessary. Potassium supplementation Monitor ins and outs S/p Dodge Labs and imaging reviewed. Rest of plan as noted below. Plan: Supplemental oxygen Titrate to keep O2 sats above 92%. Monitor hemoglobin Follow up GI recommendations Protonix drip S/p PICC line placement Pressors if necessary for hemodynamic support Titrate to keep mean arterial pressure greater than 65 mmHg Continue antibiotics Monitor renal function. Monitor electrolytes. Supplement as necessary. Monitor ins and outs. DVT prophylaxis. Prognosis: Poor given patient's multiple co-morbidities. Rest of plan per hospitalist and other consultants. Thank you Dr. Dunaway for allowing me to participate in this patient's care. Further recommendations will depend on the patient's clinical course. Please do not hesitate to contact me if you have any questions or concerns. This medical document was created using an electronic medical record system with [employer] dictation system. Although these documentations are being carefully reviewed, there may still be some phonetic and typographical changes. The errors are purely typographical, due to imperfection on the software program, and do not reflect any compromise in the patient's medical care. Dietary Evaluation Review Recommendations by RD: Protein Supplementation Comments: 1) If patient remains NPO > 7 days, consider EN/TPN to meet at least 75% daily estimated needs 2) Consider Pro-Stat @ 30 mL qd d/t increased protein needs 3) Initiate vitamin C @ 500 mg bid and zinc sulfate @ 220 mg qd for 7-10 days 4) Initiate multivitamin @ 1 tb qd 5) Advance to 60g CCHO low-fat diet when medically feasible, per ETHNOGRAPHIC MATERIALS CONSERVATOR approval 6) F/u with gastroenterology, oncology, and nephrology 7) Continue to monitor I&O, labs, and skin integrity Expected Outcomes/Goals: 1) Patient to receive nutritional support within 7 days 2) wound and labs to improve 3) diet to advance 4) f/u in 2-3 days Plan discussed with: Patient, Other (PARI García) LAUREN GUPTA MD Jan 06, 2025 21:20
[2025-01-06] MEDS: FUROSEMIDE 40 MG/4 ML VIAL IV SCH (21:36)
[2025-01-06] MEDS: SODIUM PHOSPHATES IV NR (21:39)
[2025-01-06] MEDS: [UNRECOGNIZED DRUG - OTHER] IV NR (21:39)
[2025-01-06] MEDS: SODIUM CHLORIDE IV NR (21:39)
[2025-01-06] MEDS: FAT EMULSION IV NR (21:39)
[2025-01-07] VITALS (7 sets, daily range): BP systolic 99–138; BP diastolic 57–67; PULSE 78–106; RESP 14–19; TEMP 97.3–98.2; O2SAT 95–100
[2025-01-07] MEDS: PHENYLEPHRINE IV 0 ML IV ONE (02:03)
[2025-01-07 06:13] LABS: Basophils # (auto) 0 10 ^3/uL (0-0.2); Basophils % (auto) 0.3 % (0.0-2.0); Eosinophils # (auto) 0 10 ^3/uL (0-0.8); Eosinophils % (auto) 0.2 % (0.0-7.0); Hematocrit 27.6 % (41.0-53.0); Hemoglobin 9.1 g/dL (13.5-17.5); Lymphocytes # (auto) 4.4 10 ^3/uL (0.4-5.4); Lymphocytes % (auto) 45.3 % (10.0-50.0); Monocytes # (auto) 0.4 10 ^3/uL (0-1.3); Monocytes % (auto) 4.2 % (0.0-12.0); Neutrophils # (auto) 4.8 10 ^3/uL (1.6-8.6); Nucleated Red Blood Cells % 0.6 %; Platelet Count (auto) 92 10^3/uL (140-450); Red Blood Cells 3.13 10^6/uL (4.5-5.90); Red Cell Distribution Width 20.6 % (11.8-14.3); White Blood Cell 9.6 10^3/uL (4.4-10.8)
[2025-01-07 06:22] LABS: Anion Gap 10 (5-15); BUN/Creatinine Ratio 32.1 (10.0-20.0); Carbon Dioxide 22 mmol/L (20-31); Sodium 140 mmol/L (136-145)
[2025-01-07 06:23] LABS: Phosphorus 2.4 mg/dL (2.4-5.1)
[2025-01-07 06:28] LABS: Alanine Aminotransferase 103 U/L (7-40); Albumin 2.1 g/dL (3.2-4.8); Alkaline Phosphatase 139 U/L (46-116); Aspartate Aminotransferase 280 U/L (13-40); Bilirubin, Total 2.2 mg/dL (0.2-1.0); Blood Urea Nitrogen 44 mg/dL (9-23); Calcium 8.1 mg/dL (8.7-10.4); Chloride 108 mmol/L (98-107); Glucose 109 mg/dL (74-106); Magnesium 1.6 mg/dL (1.6-2.6); Potassium 3.4 mmol/L (3.5-5.1); Total Protein 4.5 g/dL (5.7-8.2)
--- NOTE | 2025-01-07 09:19 | DVHPNRES ---
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 Khoi Kellogg), presented to the ED with generalized weakness, decreased appetite for 2 weeks Per daughter and granddaughter, he has had difficulty ambulating, increasing weakness (noticed while rising from the toilet), and poor oral intake. He was recently diagnosed with UTI and prescribed Keflex, though he has not been compliant with home medications including glipizide, metformin, and mirtazapine. EMS was called when he was found hypotensive at home (SBP in 70s). Upon arrival, he was alert and oriented but continued to endorse generalized weakness. He also has a productive cough and was noted to have bilateral pleural effusions on imaging. CT abdomen/pelvis revealed a large pancreatic head mass (17.3 x 10.3 cm), ascites, liver heterogeneity suggesting metastasis, and peritoneal involvement. 01/01/25: the patient had an episode of hematemesis with approximately 150 cc of bright red blood around 4:20 p.m., Also he was having multiple episodes of melena during the day The patient was started on a Protonix drip, NPO, and transfusion support. He received 1 unit PRBCs at 1 p.m. on 12/31 and is planned to receive an additional unit for ongoing bleeding along with FFP and IV iron. Upgraded to ICU status 01/02/25: During the night, patient had multiple bloody stools and melena, hb came 6: total 4RBC, 2 FFP, albumin and vitamin K, am, the hb 7,2, patient was placed on levophed, port cath and midline will be use to infuse, case discussed extensively with the family, full code, 1 unit of cryoprecipitate 01/04/25: hb is trending high, just 1 bowel movement yesterday, patient is on octeotride and PPI, OSKAR is worsening, furosemide started, paracentesis ordered 01/05/25: paracentesis 4L pulled out, albumin was given, stop fluid per nephro, TPN was started, hb stable, few bowel movements (black no red), patient is stable to go to the floor 01/06/25: hb stable, few bowel movements dark, no blood, wbc and crp are slightly elevated, continue AB, x ray showed more pulmonary congestion increase lasix bid, GI advanced diet to ice chips 01/07/25: hb 9,1, greenish bowel movement, no bleeding, wbc is getting better, HH for PT, clear liquid diet Objective vital signs Vital Sign Date Time Temp Pulse Resp B/P (MAP) Pulse Ox O2 Delivery O2 Flow Rate FiO2 01/07/25 08:00 Nasal Cannula* 2 28 01/07/25 05:46 106/57 01/07/25 05:00 97.7 99 16 95 97.7 Total Intake and Output 01/06/25 01/06/25 01/07/25 15:00 23:00 07:00 Intake Total 750 ml 2035.5 ml 150 ml Output Total 1800 ml 1450 ml Balance 750 ml 235.5 ml -1300 ml medications Current Medications Medications Dose Ordered Sig/Go Route Start Time Stop Time Status Last Admin Dose Admin Ondansetron HCl 4 mg Q4HP PRN IV 12/31/24 13:15 01/01/25 16:23 4 MG Acetaminophen 650 mg Q6HP PRN PO 12/31/24 13:15 Diagnostic Test (Pha) 1 strip ACHS 12/31/24 17:00 01/07/25 05:47 1 STRIP Insulin Human Regular ACHS SC 12/31/24 17:00 01/06/25 21:21 2 UNITS Dextrose 50 ml UD PRN IV 12/31/24 13:45 Pantoprazole Sodium 50 ml @ 10 mls/hr Q5H IV 01/01/25 16:30 01/07/25 02:28 10 MLS/HR Nystatin 5 ml QID MT 01/04/25 18:00 01/07/25 05:47 5 ML Sodium Chloride 10 ml QSHIFT@10,22 IV 01/04/25 22:00 01/06/25 21:19 10 ML Amino Acids 0 ml @ 0 mls/hr PER PHARMACY IV 01/05/25 11:00 Doxycycline Hyclate 100 ml @ 50 mls/hr Q12HR@08 IV 01/05/25 20:00 01/07/25 08:57 50 MLS/HR Linezolid 300 ml @ 150 mls/hr Q12HR@08 IV 01/06/25 08:00 01/07/25 08:57 150 MLS/HR Piperacillin Sod/ Tazobactam Sod 100 ml @ 25 mls/hr Q8HR IV 01/05/25 22:00 01/07/25 05:47 25 MLS/HR Fat Emulsion Intravenous 50 ml/ Sodium Chloride 10 meq/Sodium Phosphate 20 meq/ Potassium Phosphate 20 meq/ Magnesium Sulfate 16 meq/ Multivitamins 10 ml/Amino Acids/ Dextrose/Purified Water 1,076.0455 ml @ 45 mls/hr [id number] IV 01/06/25 22:00 01/07/25 21:59 01/06/25 21:39 45 MLS/HR Furosemide 40 mg BIDD IV 01/06/25 22:00 01/06/25 21:36 40 MG Examination General: NAD, AAOx3 HEENT: No icterus, pallor; hematemesis Lungs: Clear to auscultation bilaterally Heart: RRR, no murmurs Abdomen: distended , tender in the lower abdomen +BS, Extremities: No edema Skin: No rash or bruising laboratory and microbiology Laboratory Tests 01/07/25 05:20 Test 01/07/25 05:20 Range/Units Serum Glucose 109 H 74-106 mg/dL Microbiology Date/Time Source Procedure Growth Status 01/04/25 14:30 Ascities Fluid Gram Stain - Final Resulted 01/04/25 14:30 Ascities Fluid Body Fluid Culture - Preliminary Resulted 01/01/25 06:55 Nose MRSA Screen - Final Complete 12/31/24 19:44 Voided Urine Urine Culture - Final Complete 12/31/24 10:55 Blood Blood Culture - Final NO GROWTH AFTER 5 DAYS OF INCUBATION. Complete Problem List/Assessment/Plan Problem List/Assessment/Plan GI: #Hemorrhagic shock # Upper and lower GI Bleed likely secondary to malignancy/portal hypertension/chemotherapy enterocolitis # Anemia acute blood loss anemia from GI bleed. few BM: greenish, no black, no bleeding DC PPI drip: protonix BID DC octeotride drip GI consulted. Transfusion with 6 PRBCs, 2 FFP and 1 cryoprecipitates Albumin and vitamin K given Clear liquid diet TPN Iron IV IMAGING: CT Abd/Pelvis (12/31): Large pancreatic head mass (17.3 x 10.3 cm), liver heterogeneity, peritoneal involvement, small ascites, bilateral pleural effusions (left > right), no intra-abdominal lymphadenopathy Last EGD: August 2024 No colonoscopy on file #Hepatocellular carcinoma stage 3a #Transaminitis #Hyperbilirubinemia #Pancreatic Mass? newly identified, large mass being followed by Dr. Kellogg at [facility] ([place]), last chemo 12/11. Patient is not stable enough for further images #Ascites likely malignant. Paracentesis ordered: 4LT, albumin replaced Pulmonary #Sepsis: #Acute hypoxic respiratory failure #PNA? gram neg/ gram + #bilateral pleural effusions (left > right) possible aspiration Zosyn, linezolid and doxycycline IV O2 2 LT More pulmonary congestion Increase lasix BID Endocrinology #Type 2 Diabetes Mellitus Sliding scale insulin. #HTN stable monitor BP. Renal #Hyponatremia, resolved #Hyperkalemia, resolved #Hypomagnesemia, resolved #Hypokalemia, mild #OSKAR, vasomotor mediated #CKD stage 3b stop iv fluids Nephro on the case furosemide 40 mg bid kidney US: normal urine studies pending dodge catheter #UTI (recent) Completed Keflex at home Zosyn IV Goals of care discussed with the patient and his daughters for 20 minutes; full code Case discussed with Dr Bryan Plan discussed with: Patient, Other (rn) My Orders My Orders Orders - LINO SHERMAN RESIDENT Procedure Category Date Status Time Chest Xray 1 View XY 01/06/25 Resulted 10:19 * Spider Assembler CONS 01/06/25 Transmitted Consult Amino Acid PHA 01/06/25 In Process Infusion... W/Fat 22:00 Nursing Protocol For LUDWIG 01/06/25 In Process TPN 22:00 Furosemide Injection PHA 01/06/25 In Process (Lasix Injection) 22:00 Tpn Per Pharmacy LUDWIG 01/06/25 In Process 22:00 Potassium Chloride PHA 01/07/25 In Process (Potassium Chloride). 07:45 Dietary Evaluation Review Recommendations by RD: Protein Supplementation Comments: 1) If patient remains NPO > 7 days, consider EN/TPN to meet at least 75% daily estimated needs 2) Consider Pro-Stat @ 30 mL qd d/t increased protein needs 3) Initiate vitamin C @ 500 mg bid and zinc sulfate @ 220 mg qd for 7-10 days 4) Initiate multivitamin @ 1 tb qd 5) Advance to 60g CCHO low-fat diet when medically feasible, per POSTAL SUPERINTENDENT approval 6) F/u with gastroenterology, oncology, and nephrology 7) Continue to monitor I&O, labs, and skin integrity Expected Outcomes/Goals: 1) Patient to receive nutritional support within 7 days 2) wound and labs to improve 3) diet to advance 4) f/u in 2-3 days Date of Service: Jan 07, 2025 Billing Provider: CLAUDETTE BRYAN DO Common Visit Codes: [id number] INP/OBS CARE(HIGH) LINO SHERMAN RESIDENT Jan 07, 2025 09:18 CLAUDETTE BRYNA DO Jan 08, 2025 10:55
--- NOTE | 2025-01-07 11:42 | DVHPN2 ---
Progress Note Date Seen: Jan 07, 2025 Has the PT tested + for MRSA If YES, has PT been informed?: No Medical Necessity Reason Pt with a Central, PICC or Fol: Yes The following are medically ne: PICC Line, Dodge Catheter Reason for dodge catheter: Strict I&O Subjective Patient reports: Other Review of Systems: Deferred Objective vital signs Vital Sign Date Time Temp Pulse Resp B/P (MAP) Pulse Ox O2 Delivery O2 Flow Rate FiO2 01/07/25 08:00 96 01/07/25 08:00 Nasal Cannula* 2 28 01/07/25 05:46 106/57 01/07/25 05:00 97.7 16 95 97.7 Total Intake and Output 01/06/25 01/06/25 01/07/25 15:00 23:00 07:00 Intake Total 750 ml 2035.5 ml 150 ml Output Total 1800 ml 1450 ml Balance 750 ml 235.5 ml -1300 ml medications Current Medications Medications Dose Ordered Sig/Go Route Start Time Stop Time Status Last Admin Dose Admin Ondansetron HCl 4 mg Q4HP PRN IV 12/31/24 13:15 01/01/25 16:23 4 MG Acetaminophen 650 mg Q6HP PRN PO 12/31/24 13:15 Diagnostic Test (Pha) 1 strip ACHS 12/31/24 17:00 01/07/25 11:07 1 STRIP Insulin Human Regular ACHS SC 12/31/24 17:00 01/07/25 11:08 2 UNITS Dextrose 50 ml UD PRN IV 12/31/24 13:45 Nystatin 5 ml QID MT 01/04/25 18:00 01/07/25 05:47 5 ML Sodium Chloride 10 ml QSHIFT@10,22 IV 01/04/25 22:00 01/07/25 09:48 10 ML Amino Acids 0 ml @ 0 mls/hr PER PHARMACY IV 01/05/25 11:00 Doxycycline Hyclate 100 ml @ 50 mls/hr Q12HR@08 IV 01/05/25 20:00 01/07/25 08:57 50 MLS/HR Linezolid 300 ml @ 150 mls/hr Q12HR@08 IV 01/06/25 08:00 01/07/25 08:57 150 MLS/HR Piperacillin Sod/ Tazobactam Sod 100 ml @ 25 mls/hr Q8HR IV 01/05/25 22:00 01/07/25 05:47 25 MLS/HR Fat Emulsion Intravenous 50 ml/ Sodium Chloride 10 meq/Sodium Phosphate 20 meq/ Potassium Phosphate 20 meq/ Magnesium Sulfate 16 meq/ Multivitamins 10 ml/Amino Acids/ Dextrose/Purified Water 1,076.0455 ml @ 45 mls/hr [id number] IV 01/06/25 22:00 01/07/25 21:59 01/06/25 21:39 45 MLS/HR Furosemide 40 mg BIDD IV 01/06/25 22:00 01/06/25 21:36 40 MG Pantoprazole Sodium 40 mg BID IV 01/07/25 11:00 laboratory and microbiology Laboratory Tests 01/07/25 05:20 Test 01/07/25 05:20 Range/Units Serum Glucose 109 H 74-106 mg/dL Microbiology Date/Time Source Procedure Growth Status 01/04/25 14:30 Ascities Fluid Gram Stain - Final Resulted 01/04/25 14:30 Ascities Fluid Body Fluid Culture - Preliminary Resulted 01/01/25 06:55 Nose MRSA Screen - Final Complete 12/31/24 19:44 Voided Urine Urine Culture - Final Complete 12/31/24 10:55 Blood Blood Culture - Final NO GROWTH AFTER 5 DAYS OF INCUBATION. Complete Problem List/Assessment/Plan Problem List/Assessment/Plan Acute kidney injury hemodynamic mediated etiology Chronic kidney disease IIIb Liver cancer Acute blood loss anemia status post multiple transfusions gi bleed hypokalemia Recommendations renal function better slowly improving i will sign off this case//pls reconsult as needed Plan discussed with: Other Dietary Evaluation Review Recommendations by RD: Protein Supplementation Comments: 1) If patient remains NPO > 7 days, consider EN/TPN to meet at least 75% daily estimated needs 2) Consider Pro-Stat @ 30 mL qd d/t increased protein needs 3) Initiate vitamin C @ 500 mg bid and zinc sulfate @ 220 mg qd for 7-10 days 4) Initiate multivitamin @ 1 tb qd 5) Advance to 60g CCHO low-fat diet when medically feasible, per CTE TEACHER approval 6) F/u with gastroenterology, oncology, and nephrology 7) Continue to monitor I&O, labs, and skin integrity Expected Outcomes/Goals: 1) Patient to receive nutritional support within 7 days 2) wound and labs to improve 3) diet to advance 4) f/u in 2-3 days LASHAY GAFFNEY MD Jan 07, 2025 11:42
[2025-01-07] MEDS: PANTOPRAZOLE 40 MG/10 ML VIAL INJ IV SCH (11:55)
[2025-01-07] MEDS: POTASSIUM CHLORIDE 20 MEQ, LIDOCAINE 1% (LOCAL ANESTH.) 2 ML in SODIUM CHL 0.9% 100 ML IV ONE (11:56)
[2025-01-07] MEDS: metOLazone 5 MG TAB PO ONE (13:44)
[2025-01-07] MEDS: MAGNESIUM SULFATE 1GM/100ML 100 ML IV ONE (16:07)
--- NOTE | 2025-01-07 17:22 | DVHPN2 ---
Progress Note - Dictate Date Seen: Jan 07, 2025 Has the PT tested + for MRSA If YES, has PT been informed?: No Medical Necessity Reason Pt with a Central, PICC or Fol: Yes The following are medically ne: PICC Line, Dodge Catheter Reason for dodge catheter: Strict I&O Subjective H&H stable at 9.1; patient was started on clear liquid diet No further episodes of nausea vomiting or hematemesis Patient had a PICC line placed and patient has been started on TPN vital signs Vital Sign Date Time Temp Pulse Resp B/P (MAP) Pulse Ox O2 Delivery O2 Flow Rate FiO2 01/07/25 17:00 97.5 91 17 132/67 (88) 97 97.5 01/07/25 08:00 Nasal Cannula* 2 28 Total Intake and Output 01/06/25 01/06/25 01/07/25 14:59 22:59 06:59 Intake Total 750 ml 2035.5 ml 150 ml Output Total 1800 ml 1450 ml Balance 750 ml 235.5 ml -1300 ml medications Current Medications Medications Dose Ordered Sig/Go Route Start Time Stop Time Status Last Admin Dose Admin Ondansetron HCl 4 mg Q4HP PRN IV 12/31/24 13:15 01/01/25 16:23 4 MG Acetaminophen 650 mg Q6HP PRN PO 12/31/24 13:15 Diagnostic Test (Pha) 1 strip ACHS 12/31/24 17:00 01/07/25 16:17 1 STRIP Insulin Human Regular ACHS SC 12/31/24 17:00 01/07/25 16:18 6 UNITS Dextrose 50 ml UD PRN IV 12/31/24 13:45 Nystatin 5 ml QID MT 01/04/25 18:00 01/07/25 13:45 5 ML Sodium Chloride 10 ml QSHIFT@10,22 IV 01/04/25 22:00 01/07/25 09:48 10 ML Amino Acids 0 ml @ 0 mls/hr PER PHARMACY IV 01/05/25 11:00 Doxycycline Hyclate 100 ml @ 50 mls/hr Q12HR@08 IV 01/05/25 20:00 01/07/25 08:57 50 MLS/HR Linezolid 300 ml @ 150 mls/hr Q12HR@08 IV 01/06/25 08:00 01/07/25 08:57 150 MLS/HR Piperacillin Sod/ Tazobactam Sod 100 ml @ 25 mls/hr Q8HR IV 01/05/25 22:00 01/07/25 13:54 25 MLS/HR Fat Emulsion Intravenous 50 ml/ Sodium Chloride 10 meq/Sodium Phosphate 20 meq/ Potassium Phosphate 20 meq/ Magnesium Sulfate 16 meq/ Multivitamins 10 ml/Amino Acids/ Dextrose/Purified Water 1,076.0455 ml @ 45 mls/hr [id number] IV 01/06/25 22:00 01/07/25 21:59 01/06/25 21:39 45 MLS/HR Furosemide 40 mg BIDD IV 01/06/25 22:00 01/06/25 21:36 40 MG Pantoprazole Sodium 40 mg BID IV 01/07/25 11:00 01/07/25 11:55 40 MG Fat Emulsion Intravenous 100 ml/Sodium Phosphate 20 meq/ Potassium Phosphate 30 meq/ Magnesium Sulfate 16 meq/ Multivitamins 10 ml/Amino Acids/ Dextrose/Purified Water 1,175.8182 ml @ 49 mls/hr Q24H IV 01/07/25 22:00 01/08/25 21:59 objective General Appearance: Alert, Oriented X3, Cooperative, No acute distress, thin and cachectic HEENT: Atraumatic Lungs: Clear to auscultation Cardiovascular: Regular rate and rhythm Abdomen: Other nontender Extremities: 2+ pedal edema Neuro appears to be nonfocal laboratory and microbiology Laboratory Tests 01/07/25 05:20 Test 01/07/25 05:20 Range/Units Serum Glucose 109 H 74-106 mg/dL Problems(with codes): (1) GI bleed (2) Liver cancer (3) Sepsis (4) Leukocytosis (5) Anemia Prognosis Assessment plan I had a detailed discussion with the patient's daughter at the bedside They do not want any further aggressive endoscopic workup; EGD or Colon Last EGD at [facility] had shown gastritis and GERD; no varices were reported I will taper off the IV octreotide today Tomorrow we will DC the IV Protonix drip and change it to Protonix 40 q.12 If the patient is stable we can try to advance diet to full liquid diet tomorrow Patient and family were counseled about the overall poor health of the patient and hospice option was discussed with patient's daughter They said they were going to talk to his oncologist at [facility] and then decide on further management Dietary Evaluation Review Recommendations by RD: Protein Supplementation Comments: 1) If patient remains NPO > 7 days, consider EN/TPN to meet at least 75% daily estimated needs 2) Consider Pro-Stat @ 30 mL qd d/t increased protein needs 3) Initiate vitamin C @ 500 mg bid and zinc sulfate @ 220 mg qd for 7-10 days 4) Initiate multivitamin @ 1 tb qd 5) Advance to 60g CCHO low-fat diet when medically feasible, per TECHNICAL INTERNSHIP approval 6) F/u with gastroenterology, oncology, and nephrology 7) Continue to monitor I&O, labs, and skin integrity Expected Outcomes/Goals: 1) Patient to receive nutritional support within 7 days 2) wound and labs to improve 3) diet to advance 4) f/u in 2-3 days Plan discussed with: Patient, Daughter, Other (Nurse) TENA GUILLEN MD Jan 07, 2025 17:22
[2025-01-07] MEDS: TPN PER PHARMACY IV NR (22:00)
--- NOTE | 2025-01-07 23:22 | DVHPN2 ---
Progress Note - Dictate Date Seen: Jan 07, 2025 Has the PT tested + for MRSA If YES, has PT been informed?: No Medical Necessity Reason Pt with a Central, PICC or Fol: Yes The following are medically ne: PICC Line, Dodge Catheter Reason for dodge catheter: Strict I&O Subjective Patient seen and examined at bedside. Remains on supplemental oxygen Overnight events reviewed. vital signs Vital Sign Date Time Temp Pulse Resp B/P (MAP) Pulse Ox O2 Delivery O2 Flow Rate FiO2 01/07/25 20:49 98.2 100 14 103/60 (74) 100 98.2 01/07/25 08:00 Nasal Cannula* 2 28 Total Intake and Output 01/06/25 01/06/25 01/07/25 14:59 22:59 06:59 Intake Total 750 ml 2035.5 ml 150 ml Output Total 1800 ml 1450 ml Balance 750 ml 235.5 ml -1300 ml medications Current Medications Medications Dose Ordered Sig/Go Route Start Time Stop Time Status Last Admin Dose Admin Ondansetron HCl 4 mg Q4HP PRN IV 12/31/24 13:15 01/01/25 16:23 4 MG Acetaminophen 650 mg Q6HP PRN PO 12/31/24 13:15 Diagnostic Test (Pha) 1 strip ACHS 12/31/24 17:00 01/07/25 22:00 1 STRIP Insulin Human Regular ACHS SC 12/31/24 17:00 01/07/25 22:00 4 UNITS Dextrose 50 ml UD PRN IV 12/31/24 13:45 Nystatin 5 ml QID MT 01/04/25 18:00 01/07/25 22:00 5 ML Sodium Chloride 10 ml QSHIFT@10,22 IV 01/04/25 22:00 01/07/25 22:00 10 ML Amino Acids 0 ml @ 0 mls/hr PER PHARMACY IV 01/05/25 11:00 Doxycycline Hyclate 100 ml @ 50 mls/hr Q12HR@08 IV 01/05/25 20:00 01/07/25 20:00 50 MLS/HR Linezolid 300 ml @ 150 mls/hr Q12HR@0800 IV 01/06/25 08:00 01/07/25 20:00 150 MLS/HR Piperacillin Sod/ Tazobactam Sod 100 ml @ 25 mls/hr Q8HR IV 01/05/25 22:00 01/07/25 22:00 25 MLS/HR Furosemide 40 mg BIDD IV 01/06/25 22:00 01/07/25 17:35 40 MG Pantoprazole Sodium 40 mg BID IV 01/07/25 11:00 01/07/25 22:00 40 MG Fat Emulsion Intravenous 100 ml/Sodium Phosphate 20 meq/ Potassium Phosphate 30 meq/ Magnesium Sulfate 16 meq/ Multivitamins 10 ml/Amino Acids/ Dextrose/Purified Water 1,175.8182 ml @ 49 mls/hr Q24H IV 01/07/25 22:00 01/08/25 21:59 01/07/25 22:00 49 MLS/HR objective Gen.: Patient lying in bed in no apparent distress. On supplemental oxygen. Head: Normocephalic, atraumatic. Eyes: EOMI/PERRLA. Ears: Normal hearing. Normal anatomy. Neck/trachea: Trachea midline, supple. Nose: Normal external anatomy. Mouth: Moist mucous membranes. Chest: Decreased air entry bilaterally. No wheezing or rhonchi. Cardiovascular: Positive S1, positive S2. Regular rate and rhythm. Abdomen: Positive bowel sounds in all 4 quadrants. Soft, non-tender, non- distended. : Deferred. Rectal: Deferred. Skin: Warm, dry. Intact. Extremities: 2+ radial pulses bilaterally. No lower extremity edema. Neuro: Awake, alert, oriented x3. No gross motor or sensory deficits. Cranial nerves II through XII intact. Gait not assessed. laboratory and microbiology Laboratory Tests 01/07/25 05:20 Test 01/07/25 05:20 Range/Units Serum Glucose 109 H 74-106 mg/dL Assessment/Plan Impression: Acute hypoxic respiratory failure Dependence on supplemental oxygen Acute GI hemorrhage Anemia 2/2 GI hemorrhage Hypovolemic shock. Events: Remains on supplemental oxygen On 2 LPM NC Taper O2 as tolerated Arrange for home oxygen Patient is out of bed to chair, ambulating. S/p paracentesis 01/04 with 4 liters removed Ascitic fluid cultures show no growth Nephrology recommendations appreciated for worsening renal failure Head of bed elevation Aspiration precautions Incentive spirometry Continue antibiotics Antitussive for cough Protonix Monitor hemoglobin - trended up to 9.1 g/dL Transfuse if less than 7.0 g/dL. GI recommendations appreciated. Temporal wasting noted. Continue TPN for nutritional support Diurese w/ Lasix Monitor renal function. Monitor electrolytes. Supplement as necessary. Potassium supplementation Monitor ins and outs S/p Dodge Disposition per hospitalist. Labs and imaging reviewed. Rest of plan as noted below. Plan: Supplemental oxygen Titrate to keep O2 sats above 92%. Monitor hemoglobin GI recommendations appreciated Protonix drip S/p PICC line placement Pressors if necessary for hemodynamic support Titrate to keep mean arterial pressure greater than 65 mmHg Continue antibiotics Monitor renal function. Monitor electrolytes. Supplement as necessary. Monitor ins and outs. DVT prophylaxis. Prognosis: Poor given patient's multiple co-morbidities. Rest of plan per hospitalist and other consultants. Thank you Dr. Dunaway for allowing me to participate in this patient's care. Further recommendations will depend on the patient's clinical course. Please do not hesitate to contact me if you have any questions or concerns. This medical document was created using an electronic medical record system with [employer] dictation system. Although these documentations are being carefully reviewed, there may still be some phonetic and typographical changes. The errors are purely typographical, due to imperfection on the software program, and do not reflect any compromise in the patient's medical care. Dietary Evaluation Review Recommendations by RD: Protein Supplementation Comments: 1) If patient remains NPO > 7 days, consider EN/TPN to meet at least 75% daily estimated needs 2) Consider Pro-Stat @ 30 mL qd d/t increased protein needs 3) Initiate vitamin C @ 500 mg bid and zinc sulfate @ 220 mg qd for 7-10 days 4) Initiate multivitamin @ 1 tb qd 5) Advance to 60g CCHO low-fat diet when medically feasible, per LITHOGRAPHERS PRINTER approval 6) F/u with gastroenterology, oncology, and nephrology 7) Continue to monitor I&O, labs, and skin integrity Expected Outcomes/Goals: 1) Patient to receive nutritional support within 7 days 2) wound and labs to improve 3) diet to advance 4) f/u in 2-3 days Plan discussed with: Patient, Other (RN) LAUREN GUPTA MD Jan 07, 2025 23:22
[2025-01-08] VITALS (14 sets, daily range): BP systolic 95–119; BP diastolic 56–69; PULSE 96–110; RESP 14–20; TEMP 97.2–98.1; O2SAT 96–100
[2025-01-08 07:58] LABS: Mean Corpuscular Hemoglobin 28.8 pg (28.0-32.0); Mean Corpuscular Hgb Conc. 31.1 g/dL (32.0-36.0); Mean Corpuscular Volume 92.6 fL (80.0-100.0); Platelet Count (auto) 83 10^3/uL (140-450); Red Blood Cells 3.13 10^6/uL (4.5-5.90); White Blood Cell 8.7 10^3/uL (4.4-10.8)
[2025-01-08 08:03] LABS: Red Cell Distribution Width 21.3 % (11.8-14.3)
[2025-01-08 08:05] LABS: Basophils % (manual) 0 (0.0-2.0); Blast Cells 0; Metamyelocytes % 0; Myelocytes % 0; Promyelocytes % 0
[2025-01-08 08:12] LABS: Anion Gap 12 (5-15); Carbon Dioxide 20 mmol/L (20-31); Chloride 106 mmol/L (98-107); Magnesium 1.7 mg/dL (1.6-2.6); Sodium 138 mmol/L (136-145)
[2025-01-08 08:13] LABS: Alanine Aminotransferase 90 U/L (7-40); Albumin 2.1 g/dL (3.2-4.8); Alkaline Phosphatase 142 U/L (46-116); Aspartate Aminotransferase 204 U/L (13-40); Blood Urea Nitrogen 43 mg/dL (9-23); Calcium 8.2 mg/dL (8.7-10.4); Glucose 177 mg/dL (74-106); Potassium 3.2 mmol/L (3.5-5.1); Total Protein 4.7 g/dL (5.7-8.2)
[2025-01-08 08:48] LABS: Band Neutrophils % (manual) 2; Eosinophils % (manual) 2 (0-7)
[2025-01-08 08:49] LABS: Lymphocytes % (manual) 28 (10.0-50.0); Monocytes % (manual) 4 (0-12); Reactive Lymphocytes 2
[2025-01-08 08:50] LABS: Anisocytosis Moderate; Hypochromia Slight; Platelet Estimate Decreased
[2025-01-08 08:51] LABS: Polychromasia Slight
[2025-01-08] MEDS ORDERED: DEXTROSE (50%) 50ML SYRG IV SCH (10:00)
[2025-01-08] MEDS: ACCU-CHEK COMFORT CURVE STRIP VI SCH (12:11)
[2025-01-08] MEDS: InsuLIN REG 1unit/0.01ml Soln (100units/ml) SC SCH (12:12)
[2025-01-08] MEDS: POTASSIUM CHL 20MEQ/50ML 50 ML IV SCH (12:49)
[2025-01-08] MEDS ORDERED: POTASSIUM EFFERVESENT TAB 25 MEQ PO ONE (13:30)
[2025-01-08] MEDS: IPRATROPIUM BROM 0.5 MG/2.5ML INH SOL NEB ONE (15:24)
--- NOTE | 2025-01-08 17:15 | DVHPNRES ---
Progress Note Date Seen: Jan 08, 2025 Resident Creating Document: MANOLO KO RESIDENT Has the PT tested + for MRSA If YES, has PT been informed?: No Medical Necessity Reason Pt with a Central, PICC or Fol: Yes The following are medically ne: PICC Line, Dodge Catheter Reason for dodge catheter: Strict I&O Subjective Review of Systems Tiago Davila is a 79-year-old Swiss-speaking male patient who presents to the ED with chief complaint of generalized weakness, decreased appetite for 2 weeks Per daughter and granddaughter, he has had difficulty ambulating, increasing weakness (noticed while rising from the toilet), and poor oral intake. He was recently diagnosed with UTI and prescribed Keflex. Patient was noncompliant with medication due to decreased appetite for the past week. Denies any other associated symptoms. 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 Khoi Kellogg) Surgical history: Port-A-Cath placement, abdominal surgery (patient does not recall what kind of surgery he had) Family history: Noncontributory Social history: Lives with family (daughter and granddaughter). Denies current tobacco, alcohol and other drug abuse Allergies: Denies Home medication: Benzonatate 100 mg p.o. t.i.d., Keflex, glipizide 10 mg p.o. b.i.d., losartan 25 mg p.o. daily, metformin 1000 mg p.o. b.i.d., mirtazapine 15 mg p.o. daily Patient seen and examined at bedside. He is dysphonic, he associated symptoms after initiating oral intake with clear liquid diet, continue with TPN for feedings as wall. Still complains of shortness of breath and productive cough. Hemoglobin currently stable, GI specialist discontinued octreotide and pantoprazole drip, currently on Protonix IV b.i.d.. Discontinue linezolid, continued with doxycycline and Zosyn. Objective vital signs Vital Sign Date Time Temp Pulse Resp B/P (MAP) Pulse Ox O2 Delivery O2 Flow Rate FiO2 01/08/25 16:43 97.7 104 19 112/56 (74) 97 97.7 01/08/25 15:39 1.0 24 01/08/25 15:24 Nasal Cannula Total Intake and Output 01/07/25 01/07/25 01/08/25 15:00 23:00 07:00 Intake Total 725 ml 100 ml Output Total 650 ml 1950 ml Balance 75 ml -1850 ml medications Current Medications Medications Dose Ordered Sig/Go Route Start Time Stop Time Status Last Admin Dose Admin Ondansetron HCl 4 mg Q4HP PRN IV 12/31/24 13:15 01/01/25 16:23 4 MG Acetaminophen 650 mg Q6HP PRN PO 12/31/24 13:15 Nystatin 5 ml QID MT 01/04/25 18:00 01/08/25 12:12 5 ML Sodium Chloride 10 ml QSHIFT@10,22 IV 01/04/25 22:00 01/08/25 09:35 10 ML Amino Acids 0 ml @ 0 mls/hr PER PHARMACY IV 01/05/25 11:00 Doxycycline Hyclate 100 ml @ 50 mls/hr Q12HR@0800,2000 IV 01/05/25 20:00 01/08/25 08:40 50 MLS/HR Piperacillin Sod/ Tazobactam Sod 100 ml @ 25 mls/hr Q8HR IV 01/05/25 22:00 01/08/25 14:25 25 MLS/HR Furosemide 40 mg BIDD IV 01/06/25 22:00 01/08/25 05:19 40 MG Pantoprazole Sodium 40 mg BID IV 01/07/25 11:00 01/08/25 09:35 40 MG Fat Emulsion Intravenous 100 ml/Sodium Phosphate 20 meq/ Potassium Phosphate 30 meq/ Magnesium Sulfate 16 meq/ Multivitamins 10 ml/Amino Acids/ Dextrose/Purified Water 1,175.8182 ml @ 49 mls/hr Q24H IV 01/07/25 22:00 01/08/25 21:59 01/07/25 22:00 49 MLS/HR Diagnostic Test (Pha) 1 strip Q6HR 01/08/25 12:00 01/08/25 12:11 1 STRIP Insulin Human Regular FOLLOW SLIDING SCALE Q6HR SC 01/08/25 12:00 01/08/25 12:12 8 UNITS Dextrose 50 ml UD IV 01/08/25 10:00 Fat Emulsion Intravenous 150 ml/Sodium Acetate 60 meq/Potassium Acetate 60 meq/ Magnesium Sulfate 20 meq/ Multivitamins 10 ml/Insulin Human Regular 6 units/ Amino Acids/ Dextrose 1,325.06 ml @ 55 mls/hr Q24H6M IV 01/08/25 22:00 01/09/25 21:59 Ipratropium [place] 0.5 mg Q4HWA NEB 01/08/25 18:00 Examination Patient lying in bed, in no acute distress General: Lucid, cachectic, dysphonic, afebrile, mucosae are moist, conjunctivae are pale Cardiovascular: Normal S1 and S2. No murmurs, gallops or rubs Respiratory: Regular ventilation mechanics. Diffuse rhonchus predominantly bibasilar, currently on nasal cannula at 2 L/min Abdomen: Distended, shifting dullness, nontender, no organomegaly, normal bowel sounds. Presents surgical scar of laparotomy MSK/skin: Mobilizes 4 limbs. Skin is dry and warm. Bilateral infrapatellar pitting edema Neurological: Oriented in 3 spheres. No motor no sensitive deficits. Pupils are isocoric and reactive laboratory and microbiology Laboratory Tests 01/08/25 07:07 Test 01/08/25 07:07 Range/Units Serum Glucose 177 H 74-106 mg/dL Microbiology Date/Time Source Procedure Growth Status 01/04/25 14:30 Ascities Fluid Gram Stain - Final Resulted 01/04/25 14:30 Ascities Fluid Body Fluid Culture - Preliminary Resulted 01/01/25 06:55 Nose MRSA Screen - Final Complete 12/31/24 19:44 Voided Urine Urine Culture - Final Complete 12/31/24 10:55 Blood Blood Culture - Final NO GROWTH AFTER 5 DAYS OF INCUBATION. Complete Problem List/Assessment/Plan Problem List/Assessment/Plan Assessment: Mixed shock (hypovolemic and septic) Hypovolemic shock secondary to upper and lower GI bleed Upper and lower GI Bleed likely secondary to malignancy/portal hypertension/chemotherapy enterocolitis Sepsis secondary to pneumonia (aspiration versus Gram-positive and Gram-negative pneumonia) Acute respiratory failure probably secondary to aspiration pneumonia Bilateral pleural effusion (left greater than right) OSKAR hemodynamically mediated on CKD UTI Bicytopenia Normocytic anemia with iron deficiency Thrombocytopenia Hepatocellular carcinoma stage 3a - currently undergoing chemotherapy Transaminitis Hyperbilirubinemia Type 2 diabetes Hypertension Electrolyte alteration (hyponatremia, hyperkalemia, hypomagnesemia and hypokalemia Plan: Required multiple transfusions (six PRBCs, two FFP and one cryoprecipitate), albumin and vitamin K, IV iron Currently under empiric IV antibiotic (doxycycline and Zosyn, discontinue linezolid due to thrombocytopenia) Completed paracentesis with debit of 4 L of fluid All cultures negative (blood, urine, ascitic) and MRSA negative Completed CT of abdomen and pelvis: 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 No further scopes required at this time (last one completed in [place] with no varices, only gastritis) Currently on Clear liquid diet and TPN. We will evaluate tapering off TPN as tolerated Goals of care discussed with patient for over 18 minutes: Full code status Discussed plan with Dr. Anguiano, patient and nurses: Patient is currently on telemetry status, hemoglobin is stable, all cultures are negative, no episodes of hematemesis or melena, patient continues with respiratory failure, ordered sputum sample, we will continue with empiric IV antibiotic (doxycycline and Zosyn, discontinued linezolid due to thrombocytopenia). Patient has poor prognosis due to chronic state. Have discussed with patient. Plan discussed with: Patient, Other (Nurses) My Orders My Orders Orders - MANOLO KO RESIDENT Procedure Category Date Status Time Sputum Induction RT 01/08/25 Logged 13:30 Respiratory Culture AMADOR 01/08/25 Logged W/ Gs 13:30 Ipratropium Medneb PHA 01/08/25 In Process (Atrovent Medneb) 18:00 * Swallow Request ST 01/08/25 Transmitted 16:55 Dietary Evaluation Review Recommendations by RD: Protein Supplementation Comments: 1) If patient remains NPO > 7 days, consider EN/TPN to meet at least 75% daily estimated needs 2) Consider Pro-Stat @ 30 mL qd d/t increased protein needs 3) Initiate vitamin C @ 500 mg bid and zinc sulfate @ 220 mg qd for 7-10 days 4) Initiate multivitamin @ 1 tb qd 5) Advance to 60g CCHO low-fat diet when medically feasible, per PC TECH approval 6) F/u with gastroenterology, oncology, and nephrology 7) Continue to monitor I&O, labs, and skin integrity Expected Outcomes/Goals: 1) Patient to receive nutritional support within 7 days 2) wound and labs to improve 3) diet to advance 4) f/u in 2-3 days MANOLO KO RESIDENT Jan 08, 2025 17:15
--- NOTE | 2025-01-08 17:33 | DVHPN2 ---
Progress Note - Dictate Date Seen: Jan 08, 2025 Has the PT tested + for MRSA If YES, has PT been informed?: No Medical Necessity Reason Pt with a Central, PICC or Fol: Yes The following are medically ne: PICC Line, Dodge Catheter Reason for dodge catheter: Strict I&O Subjective Patient is awake alert, greenish bowel movements no bleeding H&H stable at 9.0; tolerate clear liquid diet No further episodes of nausea vomiting or hematemesis Patient had a PICC line placed and patient has been started on TPN vital signs Vital Sign Date Time Temp Pulse Resp B/P (MAP) Pulse Ox O2 Delivery O2 Flow Rate FiO2 01/08/25 16:43 97.7 104 19 112/56 (74) 97 97.7 01/08/25 15:39 1.0 24 01/08/25 15:24 Nasal Cannula Total Intake and Output 01/07/25 01/07/25 01/08/25 15:00 23:00 07:00 Intake Total 725 ml 100 ml Output Total 650 ml 1950 ml Balance 75 ml -1850 ml medications Current Medications Medications Dose Ordered Sig/Go Route Start Time Stop Time Status Last Admin Dose Admin Ondansetron HCl 4 mg Q4HP PRN IV 12/31/24 13:15 01/01/25 16:23 4 MG Acetaminophen 650 mg Q6HP PRN PO 12/31/24 13:15 Nystatin 5 ml QID MT 01/04/25 18:00 01/08/25 12:12 5 ML Sodium Chloride 10 ml QSHIFT@10,22 IV 01/04/25 22:00 01/08/25 09:35 10 ML Amino Acids 0 ml @ 0 mls/hr PER PHARMACY IV 01/05/25 11:00 Doxycycline Hyclate 100 ml @ 50 mls/hr Q12HR@0800,2000 IV 01/05/25 20:00 01/08/25 08:40 50 MLS/HR Piperacillin Sod/ Tazobactam Sod 100 ml @ 25 mls/hr Q8HR IV 01/05/25 22:00 01/08/25 14:25 25 MLS/HR Furosemide 40 mg BIDD IV 01/06/25 22:00 01/08/25 05:19 40 MG Pantoprazole Sodium 40 mg BID IV 01/07/25 11:00 01/08/25 09:35 40 MG Fat Emulsion Intravenous 100 ml/Sodium Phosphate 20 meq/ Potassium Phosphate 30 meq/ Magnesium Sulfate 16 meq/ Multivitamins 10 ml/Amino Acids/ Dextrose/Purified Water 1,175.8182 ml @ 49 mls/hr Q24H IV 01/07/25 22:00 01/08/25 21:59 01/07/25 22:00 49 MLS/HR Diagnostic Test (Pha) 1 strip Q6HR 01/08/25 12:00 01/08/25 12:11 1 STRIP Insulin Human Regular FOLLOW SLIDING SCALE Q6HR SC 01/08/25 12:00 01/08/25 12:12 8 UNITS Dextrose 50 ml UD IV 01/08/25 10:00 Fat Emulsion Intravenous 150 ml/Sodium Acetate 60 meq/Potassium Acetate 60 meq/ Magnesium Sulfate 20 meq/ Multivitamins 10 ml/Insulin Human Regular 6 units/ Amino Acids/ Dextrose 1,325.06 ml @ 55 mls/hr Q24H6M IV 01/08/25 22:00 01/09/25 21:59 Ipratropium [place] 0.5 mg Q4HWA NEB 01/08/25 18:00 objective General Appearance: Alert, Oriented X3, Cooperative, No acute distress, thin and cachectic HEENT: Atraumatic Lungs: Clear to auscultation Cardiovascular: Regular rate and rhythm Abdomen: Other nontender Extremities: 2+ pedal edema Neuro appears to be nonfocal laboratory and microbiology Laboratory Tests 01/08/25 07:07 Test 01/08/25 07:07 Range/Units Serum Glucose 177 H 74-106 mg/dL Problems(with codes): (1) GI bleed requiring more than 4 units of blood in 24 hours, ICU, or surgery (2) GI bleed (3) Elevated lactic acid level (4) Liver cancer (5) Sepsis (6) Leukocytosis (7) Anemia Prognosis Plan Advance to full liquid diet Discharge planning as per hospitalist Outpatient follow up with his oncologist next week Taper off IV TPN once the patient is able to tolerate a full liquid diet I will Protonix change to 40 mg q.12 hours Dietary Evaluation Review Recommendations by RD: Protein Supplementation Comments: 1) If patient remains NPO > 7 days, consider EN/TPN to meet at least 75% daily estimated needs 2) Consider Pro-Stat @ 30 mL qd d/t increased protein needs 3) Initiate vitamin C @ 500 mg bid and zinc sulfate @ 220 mg qd for 7-10 days 4) Initiate multivitamin @ 1 tb qd 5) Advance to 60g CCHO low-fat diet when medically feasible, per IND[employer] WORKER approval 6) F/u with gastroenterology, oncology, and nephrology 7) Continue to monitor I&O, labs, and skin integrity Expected Outcomes/Goals: 1) Patient to receive nutritional support within 7 days 2) wound and labs to improve 3) diet to advance 4) f/u in 2-3 days Plan discussed with: Patient, Other (Nurse) TENA GUILLEN MD Jan 08, 2025 17:33
[2025-01-08] MEDS: IPRATROPIUM BROM 0.5 MG/2.5ML INH SOL NEB SCH (18:04)
[2025-01-08] MEDS: TPN PER PHARMACY IV NR (22:09)
[2025-01-09] VITALS (19 sets, daily range): BP systolic 101–119; BP diastolic 61–70; PULSE 101–115; RESP 16–18; TEMP 97.3–98.6; O2SAT 94–100
[2025-01-09 05:52] LABS: Eosinophils # (auto) 0.1 10 ^3/uL (0-0.8); Hemoglobin 8.1 g/dL (13.5-17.5); Mean Corpuscular Hgb Conc. 33.2 g/dL (32.0-36.0); White Blood Cell 9.1 10^3/uL (4.4-10.8)
[2025-01-09 05:54] LABS: Basophils # (auto) 0.1 10 ^3/uL (0-0.2); Basophils % (auto) 1.1 % (0.0-2.0); Eosinophils % (auto) 1.2 % (0.0-7.0); Hematocrit 24.3 % (41.0-53.0); Lymphocytes # (auto) 1.8 10 ^3/uL (0.4-5.4); Lymphocytes % (auto) 19.2 % (10.0-50.0); Mean Corpuscular Hemoglobin 29.6 pg (28.0-32.0); Mean Corpuscular Volume 89.4 fL (80.0-100.0); Monocytes # (auto) 0.9 10 ^3/uL (0-1.3); Monocytes % (auto) 9.3 % (0.0-12.0); Neutrophils # (auto) 6.3 10 ^3/uL (1.6-8.6); Neutrophils % (auto) 69.2 % (37.0-80.0); Nucleated Red Blood Cells % 1.2 %; Platelet Count (auto) 69 10^3/uL (140-450); Red Blood Cells 2.72 10^6/uL (4.5-5.90)
[2025-01-09 06:02] LABS: Red Cell Distribution Width 20.9 % (11.8-14.3)
[2025-01-09 06:06] LABS: INR 1.2 (0.9-1.15); Partial Thromboplastin Time 34.9 SEC (24.5-34.5); Prothrombin Time 12.5 sec (9.3-11.8)
[2025-01-09 06:12] LABS: Anion Gap 12 (5-15); Carbon Dioxide 22 mmol/L (20-31); Chloride 103 mmol/L (98-107); Magnesium 1.7 mg/dL (1.6-2.6); Phosphorus 2.6 mg/dL (2.4-5.1); Sodium 137 mmol/L (136-145)
[2025-01-09 06:13] LABS: Alanine Aminotransferase 77 U/L (7-40); Albumin 1.9 g/dL (3.2-4.8); Alkaline Phosphatase 142 U/L (46-116); Aspartate Aminotransferase 175 U/L (13-40); Blood Urea Nitrogen 48 mg/dL (9-23); Calcium 8.3 mg/dL (8.7-10.4); Glucose 117 mg/dL (74-106); Potassium 3.3 mmol/L (3.5-5.1); Total Protein 4.4 g/dL (5.7-8.2)
--- NOTE | 2025-01-09 08:57 | DVHPN2 ---
Progress Note - Dictate Date Seen: Jan 08, 2025 Has the PT tested + for MRSA If YES, has PT been informed?: No Medical Necessity Reason Pt with a Central, PICC or Fol: Yes The following are medically ne: PICC Line, Dodge Catheter Reason for dodge catheter: Strict I&O Subjective Patient seen and examined at bedside. Remains on supplemental oxygen Overnight events reviewed. vital signs Vital Sign Date Time Temp Pulse Resp B/P (MAP) Pulse Ox O2 Delivery O2 Flow Rate FiO2 01/09/25 08:33 97.9 107 16 112/61 (78) 96 97.9 01/09/25 07:37 Nasal Cannula* 1 24 Total Intake and Output 01/08/25 01/08/25 01/09/25 15:00 23:00 07:00 Intake Total 2038 ml 300 ml Output Total 600 ml 1750 ml Balance 1438 ml -1450 ml medications Current Medications Medications Dose Ordered Sig/Go Route Start Time Stop Time Status Last Admin Dose Admin Ondansetron HCl 4 mg Q4HP PRN IV 12/31/24 13:15 01/01/25 16:23 4 MG Acetaminophen 650 mg Q6HP PRN PO 12/31/24 13:15 Nystatin 5 ml QID MT 01/04/25 18:00 01/09/25 05:03 5 ML Sodium Chloride 10 ml QSHIFT@10,22 IV 01/04/25 22:00 01/08/25 21:45 10 ML Amino Acids 0 ml @ 0 mls/hr PER PHARMACY IV 01/05/25 11:00 Doxycycline Hyclate 100 ml @ 50 mls/hr Q12HR@0800,2000 IV 01/05/25 20:00 01/09/25 07:33 50 MLS/HR Piperacillin Sod/ Tazobactam Sod 100 ml @ 25 mls/hr Q8HR IV 01/05/25 22:00 01/09/25 05:06 25 MLS/HR Furosemide 40 mg BIDD IV 01/06/25 22:00 01/09/25 05:00 40 MG Pantoprazole Sodium 40 mg BID IV 01/07/25 11:00 01/08/25 21:43 40 MG Diagnostic Test (Pha) 1 strip Q6HR 01/08/25 12:00 01/09/25 05:12 1 STRIP Insulin Human Regular FOLLOW SLIDING SCALE Q6HR SC 01/08/25 12:00 01/09/25 00:02 8 UNITS Dextrose 50 ml UD IV 01/08/25 10:00 Fat Emulsion Intravenous 150 ml/Sodium Acetate 60 meq/Potassium Acetate 60 meq/ Magnesium Sulfate 20 meq/ Multivitamins 10 ml/Insulin Human Regular 6 units/ Amino Acids/ Dextrose 1,325.06 ml @ 55 mls/hr Q24H6M IV 01/08/25 22:00 01/09/25 21:59 01/08/25 22:09 55 MLS/HR Ipratropium [place] 0.5 mg Q4HWA NEB 01/08/25 18:00 01/09/25 07:37 0.5 MG Multi-Ingredient Ointment 1 applic DAILY TOP 01/09/25 10:00 objective Gen.: Patient lying in bed in no apparent distress. On supplemental oxygen. Head: Normocephalic, atraumatic. Eyes: EOMI/PERRLA. Ears: Normal hearing. Normal anatomy. Neck/trachea: Trachea midline, supple. Nose: Normal external anatomy. Mouth: Moist mucous membranes. Chest: Decreased air entry bilaterally. Clear to auscultation bilaterally. No wheezing or rhonchi. Cardiovascular: Positive S1, positive S2. Regular rate and rhythm. Abdomen: Positive bowel sounds in all 4 quadrants. Soft, non-tender, non- distended. : Deferred. Rectal: Deferred. Skin: Warm, dry. Intact. Extremities: 2+ radial pulses bilaterally. No lower extremity edema. Neuro: Awake, alert, oriented x3. No gross motor or sensory deficits. Cranial nerves II through XII intact. Gait not assessed. laboratory and microbiology Laboratory Tests 01/09/25 04:44 Test 01/09/25 04:44 Range/Units Serum Glucose 117 H 74-106 mg/dL Assessment/Plan Impression: Acute hypoxic respiratory failure Dependence on supplemental oxygen Acute GI hemorrhage Anemia 2/2 GI hemorrhage Hypovolemic shock. Events: Remains on supplemental oxygen On 1 LPM NC, O2 sat 98% Taper O2 as tolerated Arrange for home oxygen Patient is short of breath today, coughing Received breathing treatment x1 Sputum cultures ordered Head of bed elevation Aspiration precautions Incentive spirometry Continue antibiotics Antitussive for cough Protonix Monitor hemoglobin - stable at 9.0 g/dL Transfuse if less than 7.0 g/dL. Temporal wasting noted. Continue TPN for nutritional support Diurese w/ Lasix Monitor renal function. Monitor electrolytes. Supplement as necessary. Potassium supplementation Monitor ins and outs Dodge cath - good urine output Family at bedside. Disposition per hospitalist. S/p paracentesis 01/04 with 4 liters removed Ascitic fluid cultures show no growth Labs and imaging reviewed. Rest of plan as noted below. Plan: Supplemental oxygen Titrate to keep O2 sats above 92%. Monitor hemoglobin GI recommendations appreciated Protonix drip S/p PICC line placement Pressors if necessary for hemodynamic support Titrate to keep mean arterial pressure greater than 65 mmHg Continue antibiotics Monitor renal function. Monitor electrolytes. Supplement as necessary. Monitor ins and outs. DVT prophylaxis. Prognosis: Poor given patient's multiple co-morbidities. Rest of plan per hospitalist and other consultants. Thank you Dr. Dunaway for allowing me to participate in this patient's care. Further recommendations will depend on the patient's clinical course. Please do not hesitate to contact me if you have any questions or concerns. This medical document was created using an electronic medical record system with [employer] dictation system. Although these documentations are being carefully reviewed, there may still be some phonetic and typographical changes. The errors are purely typographical, due to imperfection on the software program, and do not reflect any compromise in the patient's medical care. Dietary Evaluation Review Recommendations by RD: Protein Supplementation Comments: 1) If patient remains NPO > 7 days, consider EN/TPN to meet at least 75% daily estimated needs 2) Consider Pro-Stat @ 30 mL qd d/t increased protein needs 3) Initiate vitamin C @ 500 mg bid and zinc sulfate @ 220 mg qd for 7-10 days 4) Initiate multivitamin @ 1 tb qd 5) Advance to 60g CCHO low-fat diet when medically feasible, per [employer] INVESTIGATOR approval 6) F/u with gastroenterology, oncology, and nephrology 7) Continue to monitor I&O, labs, and skin integrity Expected Outcomes/Goals: 1) Patient to receive nutritional support within 7 days 2) wound and labs to improve 3) diet to advance 4) f/u in 2-3 days Plan discussed with: Patient, Other (PARI Hair) LAUREN GUPTA MD Jan 09, 2025 08:57
[2025-01-09] MEDS: EUCERIN CREAM 2OZ TUBE TOP SCH (10:09)
[2025-01-09] MEDS: POTASSIUM CHL 20MEQ/50ML 50 ML IV ONE (10:52)
--- NOTE | 2025-01-09 14:11 | DVHPNRES ---
Progress Note Date Seen: Jan 09, 2025 Resident Creating Document: MANOLO KO RESIDENT Has the PT tested + for MRSA If YES, has PT been informed?: No Medical Necessity Reason Pt with a Central, PICC or Fol: Yes The following are medically ne: PICC Line, Dodge Catheter Reason for dodge catheter: Strict I&O Subjective Review of Systems Tiago Davila is a 79-year-old Argentine-speaking male patient who presents to the ED with chief complaint of generalized weakness, decreased appetite for 2 weeks Per daughter and granddaughter, he has had difficulty ambulating, increasing weakness (noticed while rising from the toilet), and poor oral intake. He was recently diagnosed with UTI and prescribed Keflex. Patient was noncompliant with medication due to decreased appetite for the past week. Denies any other associated symptoms. 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 Khoi Kellogg) Surgical history: Port-A-Cath placement, abdominal surgery (patient does not recall what kind of surgery he had) Family history: Noncontributory Social history: Lives with family (daughter and granddaughter). Denies current tobacco, alcohol and other drug abuse Allergies: Denies Home medication: Benzonatate 100 mg p.o. t.i.d., Keflex, glipizide 10 mg p.o. b.i.d., losartan 25 mg p.o. daily, metformin 1000 mg p.o. b.i.d., mirtazapine 15 mg p.o. daily Patient seen and examined at bedside. Patient is still dysphonic, progress diet to pureed diet, but did have episode of melena, known cigarette step-down to full liquid diett, continue with TPN for feedings as well. Still complains of shortness of breath and productive cough. Hemoglobin mildly decreased , GI specialist discontinued octreotide and pantoprazole drip, currently on Protonix IV b.i.d.. Discontinue linezolid due to thrombocytopenia, continued with doxycycline and Zosyn. Objective vital signs Vital Sign Date Time Temp Pulse Resp B/P (MAP) Pulse Ox O2 Delivery O2 Flow Rate FiO2 01/09/25 12:53 98.6 107 16 119/70 (86) 97 98.6 01/09/25 10:51 Nasal Cannula* 1 24 Total Intake and Output 01/08/25 01/08/25 01/09/25 15:00 23:00 07:00 Intake Total 2038 ml 300 ml Output Total 600 ml 1750 ml Balance 1438 ml -1450 ml medications Current Medications Medications Dose Ordered Sig/Go Route Start Time Stop Time Status Last Admin Dose Admin Ondansetron HCl 4 mg Q4HP PRN IV 12/31/24 13:15 01/01/25 16:23 4 MG Acetaminophen 650 mg Q6HP PRN PO 12/31/24 13:15 Nystatin 5 ml QID MT 01/04/25 18:00 01/09/25 12:32 5 ML Sodium Chloride 10 ml QSHIFT@10,22 IV 01/04/25 22:00 01/09/25 10:09 10 ML Amino Acids 0 ml @ 0 mls/hr PER PHARMACY IV 01/05/25 11:00 Doxycycline Hyclate 100 ml @ 50 mls/hr Q12HR@0800,2000 IV 01/05/25 20:00 01/09/25 07:33 50 MLS/HR Piperacillin Sod/ Tazobactam Sod 100 ml @ 25 mls/hr Q8HR IV 01/05/25 22:00 01/09/25 13:52 25 MLS/HR Furosemide 40 mg BIDD IV 01/06/25 22:00 01/09/25 05:00 40 MG Pantoprazole Sodium 40 mg BID IV 01/07/25 11:00 01/09/25 10:52 40 MG Diagnostic Test (Pha) 1 strip Q6HR 01/08/25 12:00 01/09/25 12:25 1 STRIP Insulin Human Regular FOLLOW SLIDING SCALE Q6HR SC 01/08/25 12:00 01/09/25 12:25 12 UNITS Dextrose 50 ml UD IV 01/08/25 10:00 Fat Emulsion Intravenous 150 ml/Sodium Acetate 60 meq/Potassium Acetate 60 meq/ Magnesium Sulfate 20 meq/ Multivitamins 10 ml/Insulin Human Regular 6 units/ Amino Acids/ Dextrose 1,325.06 ml @ 55 mls/hr Q24H6M IV 01/08/25 22:00 01/09/25 21:59 01/08/25 22:09 55 MLS/HR Ipratropium [place] 0.5 mg Q4HWA NEB 01/08/25 18:00 01/09/25 10:51 0.5 MG Multi-Ingredient Ointment 1 applic DAILY TOP 01/09/25 10:00 01/09/25 10:09 1 APPLIC Fat Emulsion Intravenous 100 ml/Sodium Chloride 20 meq/ Sodium Acetate 60 meq/Potassium Acetate 80 meq/ Potassium Phosphate 22 meq/ Calcium Gluconate 2.3 meq/Magnesium Sulfate 24 meq/ Multivitamins 10 ml/Insulin Human Regular 6 units/ Amino Acids/ Dextrose 1,301.0062 ml @ 53 mls/hr [id number] IV 01/09/25 22:00 01/10/25 21:59 Examination Patient lying in bed, in no acute distress General: Lucid, cachectic, dysphonic, afebrile, mucosae are moist, conjunctivae are pale Cardiovascular: Normal S1 and S2. No murmurs, gallops or rubs Respiratory: Regular ventilation mechanics. Diffuse rhonchus predominantly bibasilar, currently on nasal cannula at 2 L/min Abdomen: Distended, shifting dullness, nontender, no organomegaly, normal bowel sounds. Presents surgical scar of laparotomy. Patient presented bowel movement with melena. MSK/skin: Mobilizes 4 limbs. Skin is dry and warm. Bilateral infrapatellar pitting edema Neurological: Oriented in 3 spheres. No motor no sensitive deficits. Pupils are isocoric and reactive laboratory and microbiology Laboratory Tests 01/09/25 04:44 Test 01/09/25 04:44 Range/Units Serum Glucose 117 H 74-106 mg/dL Microbiology Date/Time Source Procedure Growth Status 01/04/25 14:30 Ascities Fluid Gram Stain - Final Complete 01/04/25 14:30 Ascities Fluid Body Fluid Culture - Final Complete 01/01/25 06:55 Nose MRSA Screen - Final Complete 12/31/24 19:44 Voided Urine Urine Culture - Final Complete 12/31/24 10:55 Blood Blood Culture - Final NO GROWTH AFTER 5 DAYS OF INCUBATION. Complete Problem List/Assessment/Plan Problem List/Assessment/Plan Assessment: Mixed shock (hypovolemic and septic) Hypovolemic shock secondary to upper and lower GI bleed Upper and lower GI Bleed likely secondary to malignancy/portal hypertension/chemotherapy enterocolitis Sepsis secondary to pneumonia (aspiration versus Gram-positive and Gram-negative pneumonia) Acute respiratory failure probably secondary to aspiration pneumonia Bilateral pleural effusion (left greater than right) OSKAR hemodynamically mediated on CKD UTI Bicytopenia Normocytic anemia with iron deficiency Thrombocytopenia Hepatocellular carcinoma stage 3a - currently undergoing chemotherapy Transaminitis Hyperbilirubinemia Type 2 diabetes Hypertension Electrolyte alteration (hyponatremia, hyperkalemia, hypomagnesemia and hypokalemia Plan: Required multiple transfusions (six PRBCs, two FFP and one cryoprecipitate), albumin and vitamin K, IV iron Currently under empiric IV antibiotic (doxycycline and Zosyn, discontinue linezolid due to thrombocytopenia) Completed paracentesis with debit of 4 L of fluid All cultures negative (blood, urine, ascitic) and MRSA negative Completed CT of abdomen and pelvis: 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 No further scopes required at this time (last one completed in [place] with no varices, only gastritis) Swallow evaluation was normal. Advanced to pureed diet, but patient presented melena. Also associated with mild decrease in platelets, hemoglobin and hematocrit). De-escalated to full liquid diet once again, continue with TPN. We will evaluate tapering off TPN as tolerated Goals of care discussed with patient for over 18 minutes: Full code status Discussed plan with Dr. Anguiano, patient and nurses: Patient is currently on telemetry status, hemoglobin and platelets is mildly decreased, all cultures are negative, presented episode of melena after initiating pureed diet (have deescalated to full liquid diet, continue with TPN), patient continues with respiratory failure, ordered sputum sample, we will continue with empiric IV antibiotic (doxycycline and Zosyn, discontinued linezolid due to thrombocytopenia). Patient has poor prognosis due to chronic state. Have discussed with patient. Plan discussed with: Patient, Daughter, Other (Nurses) My Orders My Orders Orders - MANOLO KO RESIDENT Procedure Category Date Status Time Ipratropium Medneb PHA 01/08/25 In Process (Atrovent Medneb) 18:00 * Swallow Request ST 01/08/25 Transmitted 16:55 Acute Hepatitis Panel LAB 01/09/25 In Process 08:25 Skin Protectants, PHA 01/09/25 In Process Misc. (Eucerin Cream) 10:00 Dietary Evaluation Review Recommendations by RD: Protein Supplementation Comments: 1) If patient remains NPO > 7 days, consider EN/TPN to meet at least 75% daily estimated needs 2) Consider Pro-Stat @ 30 mL qd d/t increased protein needs 3) Initiate vitamin C @ 500 mg bid and zinc sulfate @ 220 mg qd for 7-10 days 4) Initiate multivitamin @ 1 tb qd 5) Advance to 60g CCHO low-fat diet when medically feasible, per SOLE TIER approval 6) F/u with gastroenterology, oncology, and nephrology 7) Continue to monitor I&O, labs, and skin integrity Expected Outcomes/Goals: 1) Patient to receive nutritional support within 7 days 2) wound and labs to improve 3) diet to advance 4) f/u in 2-3 days MANOLO KO RESIDENT Jan 09, 2025 14:11
[2025-01-09] MEDS ORDERED: ARTIFICIAL TEARS 15ml EACHEYE PRN (15:45)
--- NOTE | 2025-01-09 16:41 | DVH ---
CHEST RADIOGRAPH Indication: Shortness of breaths Technique: Single frontal view of the chest was obtained COMPARISON: XY CHEST XRAY 1 VIEW on DOS: 01/06/25, XY CHEST PORTABLE on DOS: 01/04/25, XY CHEST XRAY 1 V IEW on DOS: 01/02/25, XY CHEST PORTABLE on DOS: 12/31/24 FINDINGS: Lines and Tubes: Right chest port in satisfactory position. Left PICC in satisfactory position. Lungs: Multifocal airspace disease Pleura: Bilateral pleural effusions No pneumothorax. Cardiomediastinal contours: Unremarkable Bones: Unremarkable IMPRESSION: No significant interval change in pulmonary edema
[2025-01-09] MEDS: ARTIFICIAL TEARS 15ml EACHEYE ONE (18:46)
--- NOTE | 2025-01-09 19:16 | DVHPN2 ---
Progress Note - Dictate Date Seen: Jan 09, 2025 Has the PT tested + for MRSA If YES, has PT been informed?: No Medical Necessity Reason Pt with a Central, PICC or Fol: Yes The following are medically ne: PICC Line, Dodge Catheter Reason for dodge catheter: Strict I&O Subjective Patient seen and examined at bedside. Remains on supplemental oxygen Overnight events reviewed. vital signs Vital Sign Date Time Temp Pulse Resp B/P (MAP) Pulse Ox O2 Delivery O2 Flow Rate FiO2 01/09/25 19:11 108 18 100 01/09/25 19:02 Nasal Cannula 1.0 01/09/25 19:02 24 01/09/25 18:33 116/64 01/09/25 16:38 97.3 97.3 Total Intake and Output 01/08/25 01/08/25 01/09/25 15:00 23:00 07:00 Intake Total 2038 ml 300 ml Output Total 600 ml 1750 ml Balance 1438 ml -1450 ml medications Current Medications Medications Dose Ordered Sig/Go Route Start Time Stop Time Status Last Admin Dose Admin Ondansetron HCl 4 mg Q4HP PRN IV 12/31/24 13:15 01/01/25 16:23 4 MG Acetaminophen 650 mg Q6HP PRN PO 12/31/24 13:15 Nystatin 5 ml QID MT 01/04/25 18:00 01/09/25 18:32 5 ML Sodium Chloride 10 ml QSHIFT@10,22 IV 01/04/25 22:00 01/09/25 10:09 10 ML Amino Acids 0 ml @ 0 mls/hr PER PHARMACY IV 01/05/25 11:00 Doxycycline Hyclate 100 ml @ 50 mls/hr Q12HR@0800,2000 IV 01/05/25 20:00 01/09/25 07:33 50 MLS/HR Piperacillin Sod/ Tazobactam Sod 100 ml @ 25 mls/hr Q8HR IV 01/05/25 22:00 01/09/25 13:52 25 MLS/HR Furosemide 40 mg BIDD IV 01/06/25 22:00 01/09/25 18:33 40 MG Pantoprazole Sodium 40 mg BID IV 01/07/25 11:00 01/09/25 10:52 40 MG Diagnostic Test (Pha) 1 strip Q6HR 01/08/25 12:00 01/09/25 18:32 1 STRIP Insulin Human Regular FOLLOW SLIDING SCALE Q6HR SC 01/08/25 12:00 01/09/25 12:25 12 UNITS Dextrose 50 ml UD IV 01/08/25 10:00 Fat Emulsion Intravenous 150 ml/Sodium Acetate 60 meq/Potassium Acetate 60 meq/ Magnesium Sulfate 20 meq/ Multivitamins 10 ml/Insulin Human Regular 6 units/ Amino Acids/ Dextrose 1,325.06 ml @ 55 mls/hr Q24H6M IV 01/08/25 22:00 01/09/25 21:59 01/08/25 22:09 55 MLS/HR Ipratropium [place] 0.5 mg Q4HWA NEB 01/08/25 18:00 01/09/25 19:10 0.5 MG Multi-Ingredient Ointment 1 applic DAILY TOP 01/09/25 10:00 01/09/25 10:09 1 APPLIC Fat Emulsion Intravenous 100 ml/Sodium Chloride 20 meq/ Sodium Acetate 60 meq/Potassium Acetate 80 meq/ Potassium Phosphate 22 meq/ Calcium Gluconate 2.3 meq/Magnesium Sulfate 24 meq/ Multivitamins 10 ml/Insulin Human Regular 6 units/ Amino Acids/ Dextrose 1,301.0062 ml @ 53 mls/hr [id number] IV 01/09/25 22:00 01/10/25 21:59 Artificial Tears 1 drop Q2HP PRN EACHEYE 01/09/25 15:45 objective Gen.: Patient lying in bed in no apparent distress. On supplemental oxygen. Head: Normocephalic, atraumatic. Temporal wasting noted. Eyes: EOMI/PERRLA. Ears: Normal hearing. Normal anatomy. Neck/trachea: Trachea midline, supple. Nose: Normal external anatomy. Mouth: Moist mucous membranes. Chest: Decreased air entry bilaterally. Rhonchi heard. No wheezing. Cardiovascular: Positive S1, positive S2. Regular rate and rhythm. Abdomen: Positive bowel sounds in all 4 quadrants. Soft, non-tender, non- distended. : Deferred. Rectal: Deferred. Skin: Warm, dry. Intact. Extremities: 2+ radial pulses bilaterally. No lower extremity edema. Neuro: Awake, alert, oriented x3. No gross motor or sensory deficits. Cranial nerves II through XII intact. Gait not assessed. laboratory and microbiology Laboratory Tests 01/09/25 04:44 Test 01/09/25 04:44 Range/Units Serum Glucose 117 H 74-106 mg/dL Assessment/Plan Impression: Acute hypoxic respiratory failure Dependence on supplemental oxygen Acute GI hemorrhage Anemia 2/2 GI hemorrhage Hypovolemic shock. Events: Remains on supplemental oxygen On 1 LPM NC Taper O2 as tolerated Arrange for home oxygen Patient passed swallow evaluation today Shortness of breath, cough - received breathing treatment Head of bed elevation Aspiration precautions Incentive spirometry Continue antibiotics Follow up sputum cultures Antitussive for cough Protonix Monitor hemoglobin Transfuse if less than 7.0 g/dL. Continue TPN for nutritional support Diurese w/ Lasix Monitor renal function. Monitor electrolytes. Supplement as necessary. Potassium supplementation Monitor ins and outs Dodge cath - improved urine output Family at bedside. Disposition per hospitalist. S/p paracentesis 01/04 with 4 liters removed Ascitic fluid cultures show no growth Labs and imaging reviewed. Rest of plan as noted below. Plan: Supplemental oxygen Titrate to keep O2 sats above 92%. Monitor hemoglobin GI recommendations appreciated Protonix drip S/p PICC line placement Pressors if necessary for hemodynamic support Titrate to keep mean arterial pressure greater than 65 mmHg Continue antibiotics Monitor renal function. Monitor electrolytes. Supplement as necessary. Monitor ins and outs. DVT prophylaxis. Prognosis: Poor given patient's multiple co-morbidities. Rest of plan per hospitalist and other consultants. Thank you Dr. Dunaway for allowing me to participate in this patient's care. Further recommendations will depend on the patient's clinical course. Please do not hesitate to contact me if you have any questions or concerns. This medical document was created using an electronic medical record system with [employer] dictation system. Although these documentations are being carefully reviewed, there may still be some phonetic and typographical changes. The errors are purely typographical, due to imperfection on the software program, and do not reflect any compromise in the patient's medical care. Dietary Evaluation Review Recommendations by RD: Protein Supplementation Comments: 1) If patient remains NPO > 7 days, consider EN/TPN to meet at least 75% daily estimated needs 2) Consider Pro-Stat @ 30 mL qd d/t increased protein needs 3) Initiate vitamin C @ 500 mg bid and zinc sulfate @ 220 mg qd for 7-10 days 4) Initiate multivitamin @ 1 tb qd 5) Advance to 60g CCHO low-fat diet when medically feasible, per BOILER FITTER approval 6) F/u with gastroenterology, oncology, and nephrology 7) Continue to monitor I&O, labs, and skin integrity Expected Outcomes/Goals: 1) Patient to receive nutritional support within 7 days 2) wound and labs to improve 3) diet to advance 4) f/u in 2-3 days Plan discussed with: Patient, Other (PARI Hair) LAUREN GUPTA MD Jan 09, 2025 19:16
[2025-01-09] MEDS: TPN PER PHARMACY IV NR (22:12)
[2025-01-10] VITALS (8 sets, daily range): BP systolic 84–102; BP diastolic 45–63; PULSE 85–120; RESP 17–20; TEMP 97.4–98.6; O2SAT 91–100
[2025-01-10 06:12] LABS: Hematocrit 21.6 % (41.0-53.0); Nucleated Red Blood Cells % 1.1 %
[2025-01-10 06:15] LABS: Basophils # (auto) 0.1 10 ^3/uL (0-0.2); Basophils % (auto) 1.4 % (0.0-2.0); Eosinophils # (auto) 0.2 10 ^3/uL (0-0.8); Eosinophils % (auto) 2.1 % (0.0-7.0); Hemoglobin 7.1 g/dL (13.5-17.5); Lymphocytes # (auto) 1.7 10 ^3/uL (0.4-5.4); Lymphocytes % (auto) 19.1 % (10.0-50.0); Mean Corpuscular Hgb Conc. 32.8 g/dL (32.0-36.0); Mean Corpuscular Volume 91.5 fL (80.0-100.0); Monocytes # (auto) 0.7 10 ^3/uL (0-1.3); Monocytes % (auto) 8.4 % (0.0-12.0); Neutrophils # (auto) 6.1 10 ^3/uL (1.6-8.6); Platelet Count (auto) 61 10^3/uL (140-450); Red Blood Cells 2.36 10^6/uL (4.5-5.90); White Blood Cell 8.9 10^3/uL (4.4-10.8)
[2025-01-10 06:38] LABS: Anion Gap 15 (5-15); BUN/Creatinine Ratio 40.3 (10.0-20.0); Carbon Dioxide 21 mmol/L (20-31); Chloride 101 mmol/L (98-107); Phosphorus 2.5 mg/dL (2.4-5.1); Potassium 3.9 mmol/L (3.5-5.1); Sodium 137 mmol/L (136-145)
[2025-01-10 06:39] LABS: Alanine Aminotransferase 70 U/L (7-40); Albumin 1.8 g/dL (3.2-4.8); Alkaline Phosphatase 131 U/L (46-116); Aspartate Aminotransferase 181 U/L (13-40); Bilirubin, Total 2.1 mg/dL (0.2-1.0); Blood Urea Nitrogen 52 mg/dL (9-23); Calcium 8.2 mg/dL (8.7-10.4); Glucose 118 mg/dL (74-106); Total Protein 4.4 g/dL (5.7-8.2)
[2025-01-10 06:52] LABS: Anisocytosis Slight; Hypochromia Slight; Platelet Estimate Decreased; Target Cell FEW
[2025-01-10] MEDS ORDERED: NOREPINEPHRINE 8 MG/250ML KIT 250 ML IV SCH (09:00)
--- NOTE | 2025-01-10 09:10 | DVHPNRES ---
Progress Note Date Seen: Jan 10, 2025 Resident Creating Document: JAN NAJERA RESIDENT Has the PT tested + for MRSA If YES, has PT been informed?: No Medical Necessity Reason Pt with a Central, PICC or Fol: Yes The following are medically ne: PICC Line, Dodge Catheter Reason for dodge catheter: Strict I&O Subjective Review of Systems Patient seen and examined at bedside Alert Not in acute distress Multiple repeat blood pressure map less than 65 Episode of bloody stool in the morning Hemoglobin 7.1 Upgrading to ICU for vasopressor Objective vital signs Vital Sign Date Time Temp Pulse Resp B/P (MAP) Pulse Ox O2 Delivery O2 Flow Rate FiO2 01/10/25 08:48 97.4 85 18 84/50 (61) 96 97.4 01/10/25 06:54 Nasal Cannula 1.0 01/10/25 06:54 24 Total Intake and Output 01/09/25 01/09/25 01/10/25 15:00 23:00 07:00 Intake Total 0 ml 1625.1 ml 200 ml Output Total 1700 ml 1200 ml Balance 0 ml -74.9 ml -1000 ml medications Current Medications Medications Dose Ordered Sig/Go Route Start Time Stop Time Status Last Admin Dose Admin Ondansetron HCl 4 mg Q4HP PRN IV 12/31/24 13:15 01/01/25 16:23 4 MG Acetaminophen 650 mg Q6HP PRN PO 12/31/24 13:15 Nystatin 5 ml QID MT 01/04/25 18:00 01/10/25 05:52 5 ML Sodium Chloride 10 ml QSHIFT@10,22 IV 01/04/25 22:00 01/09/25 22:22 10 ML Amino Acids 0 ml @ 0 mls/hr PER PHARMACY IV 01/05/25 11:00 Doxycycline Hyclate 100 ml @ 50 mls/hr Q12HR@0800,2000 IV 01/05/25 20:00 01/09/25 20:00 50 MLS/HR Piperacillin Sod/ Tazobactam Sod 100 ml @ 25 mls/hr Q8HR IV 01/05/25 22:00 01/10/25 06:00 25 MLS/HR Furosemide 40 mg BIDD IV 01/06/25 22:00 01/09/25 18:33 40 MG Pantoprazole Sodium 40 mg BID IV 01/07/25 11:00 01/09/25 22:28 40 MG Diagnostic Test (Pha) 1 strip Q6HR 01/08/25 12:00 01/10/25 06:02 1 STRIP Insulin Human Regular FOLLOW SLIDING SCALE Q6HR SC 01/08/25 12:00 01/10/25 00:07 4 UNITS Dextrose 50 ml UD IV 01/08/25 10:00 Ipratropium [place] 0.5 mg Q4HWA NEB 01/08/25 18:00 01/10/25 06:54 0.5 MG Multi-Ingredient Ointment 1 applic DAILY TOP 01/09/25 10:00 01/09/25 10:09 1 APPLIC Fat Emulsion Intravenous 100 ml/Sodium Chloride 20 meq/ Sodium Acetate 60 meq/Potassium Acetate 80 meq/ Potassium Phosphate 22 meq/ Calcium Gluconate 2.3 meq/Magnesium Sulfate 24 meq/ Multivitamins 10 ml/Insulin Human Regular 6 units/ Amino Acids/ Dextrose 1,301.0062 ml @ 53 mls/hr [id number] IV 01/09/25 22:00 01/10/25 21:59 01/09/25 22:12 53 MLS/HR Artificial Tears 1 drop Q2HP PRN EACHEYE 01/09/25 15:45 Examination General Appearance: Cooperative. Well developed. Well nourished. NAD Head Exam: Normal inspection Neck Exam: Normal inspection. Non-tender. Normal alignment Pulmonary/Respiratory: Chest non-tender. Bilateral lung base crackles, on oxygen via nasal cannula at 2 liters/minute. Cardiovascular/Chest: Regular rate and rhythm. No murmurs. No JVD. Peripheral Pulses: 2+ Radial (R). 2+ Radial (L). 2+ Pedal (R). 2+ Pedal (L) Abdominal Exam: Normal bowel sounds. Soft. Nontender. No hepatospenomegaly. No masses, distended, fluid fluctuation. Normal bowel sounds. Melena. Ankle Exam: Negative ankle edema Lower extremities: 1+ lower extremity edema Neuro/Mental Status: A&O x4. Coherent Thoughts/Psych: Normal thought pattern. Appropriate mood and affect. Good judgement and insight laboratory and microbiology Laboratory Tests 01/10/25 04:36 Test 01/10/25 04:36 Range/Units Serum Glucose 118 H 74-106 mg/dL Microbiology Date/Time Source Procedure Growth Status 4/5/25 11:38 Sputum Gram Stain Pending Resulted 01/09/25 11:38 Sputum Respiratory Culture - Preliminary Resulted 01/04/25 14:30 Ascities Fluid Gram Stain - Final Complete 01/04/25 14:30 Ascities Fluid Body Fluid Culture - Final Complete 01/01/25 06:55 Nose MRSA Screen - Final Complete 12/31/24 19:44 Voided Urine Urine Culture - Final Complete 12/31/24 10:55 Blood Blood Culture - Final NO GROWTH AFTER 5 DAYS OF INCUBATION. Complete Problem List/Assessment/Plan Problem List/Assessment/Plan Mixed shock (hypovolemic and septic) Hypovolemic shock secondary to upper and lower GI bleed Upper and lower GI Bleed likely secondary to malignancy/portal hypertension/chemotherapy enterocolitis Sepsis secondary to pneumonia (aspiration versus Gram-positive and Gram-negative pneumonia) Acute respiratory failure probably secondary to aspiration pneumonia Bilateral pleural effusion (left greater than right) OSKAR hemodynamically mediated on CKD UTI Bicytopenia Normocytic anemia with iron deficiency Thrombocytopenia Hepatocellular carcinoma stage 3a - currently undergoing chemotherapy Transaminitis Hyperbilirubinemia Type 2 diabetes Hypertension Electrolyte alteration (hyponatremia, hyperkalemia, hypomagnesemia and hypokalemia Plan: Ordered PRBC and FFP given low hemoglobin 7.1 with active GI bleed. Repeated blood pressure map less than 65, initiated vasopressor Levophed. Upgrading to ICU. Ordered chest x-ray and abdominal ultrasound. 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 Low liquid unit for tapering of TPN as toleration. Required multiple transfusions (six PRBCs, two FFP and one cryoprecipitate), albumin and vitamin K, IV iron Currently under empiric IV antibiotic (doxycycline and Zosyn, discontinue linezolid due to thrombocytopenia) Completed paracentesis with debit of 4 L of fluid (01/04) Patient was able to swallow however given active melena, hold off on enteral feeding. Continue TPN for now. Goals of care discussed with patient for over 18 minutes: Full code status Discussed plan with Dr. Anguiano, patient and nurses: With initial evaluation, patient found to have low blood pressure map less than 65, low hemoglobin at 7.1 , patient will be transferred to ICU for vasopressor support, we will be given PRBC and FFP, continuous H&H monitoring q.12, continue with current support of IV antibiotic, Protonix and evaluation of ascites abdominal ultrasound and chest x-ray for pulmonary edema. We will hold off Lasix given low-grade pressure. Patient has poor prognosis. Plan discussed with: Patient, Other (PARI Butts) My Orders My Orders Orders - JAN NAJERA Procedure Category Date Status Time Chest Xray 1 View XY 01/10/25 Logged 08:38 Packedcells -Active BBK 01/10/25 Transmitted Bleeding 08:53 Frozen Plasma BBK 01/10/25 Transmitted 08:53 Abdomen Limited US 01/10/25 Transmitted 08:53 Norepinephrine Drip PHA 01/10/25 Transmitted Levophed 09:00 Dietary Evaluation Review Recommendations by RD: Protein Supplementation Comments: 1) If patient remains NPO > 7 days, consider EN/TPN to meet at least 75% daily estimated needs 2) Consider Pro-Stat @ 30 mL qd d/t increased protein needs 3) Initiate vitamin C @ 500 mg bid and zinc sulfate @ 220 mg qd for 7-10 days 4) Initiate multivitamin @ 1 tb qd 5) Advance to 60g CCHO low-fat diet when medically feasible, per SERVER SOFTWARE ENGINEER approval 6) F/u with gastroenterology, oncology, and nephrology 7) Continue to monitor I&O, labs, and skin integrity Expected Outcomes/Goals: 1) Patient to receive nutritional support within 7 days 2) wound and labs to improve 3) diet to advance 4) f/u in 2-3 days JAN NAJERA RESIDENT Jan 10, 2025 09:09
--- NOTE | 2025-01-10 09:48 | DVH ---
Procedure: US ABDOMEN LIMITED 01/10/2025 09:39 AM Indication: ascitis Comparison: US ABDOMEN LIMITED on DOS: 01/04/25 Technique: Sonogram of all 4 abdominal quadrants was obtained utilizing grayscale and color technique s. FINDINGS: Small to moderate amount of ascites noted in all 4 quadrants. IMPRESSION: Small to moderate intra-abdominal ascites.
[2025-01-10] MEDS ORDERED: ALBUMIN 25% 50 ML IV SCH (10:30)
--- NOTE | 2025-01-10 10:50 | DVH ---
XY CHEST XRAY 1 VIEW, HISTORY: pulmonary edema COMPARISON: XY CHEST XRAY 1 VIEW on DOS: 01/09/25, XY CHEST XRAY 1 VIEW on DOS: 01/06/25, XY CHEST PORTAB LE on DOS: 01/04/25 XY CHEST XRAY 1 VIEW on DOS: 01/09/25, XY CHEST XRAY 1 VIEW on DOS: 01/06/25, XY CHEST PORTABLE on DOS: TECHNICAL DATA: 1 view of the chest was obtained. FINDINGS: Lines and tubes: A port is seen. Cardiomediastinal silhouette: normal Pulmonary vasculature: prominent Lung expansion: low Lung airspace: patchy bibasilar opacities Lung interstitium: increased Pleura: bilateral effusion Pneumothorax: no Bones: Unremarkable Other: no IMPRESSION: Similar lung aeration with pulmonary edema and bilateral effusions.
[2025-01-10 11:17] LABS: Hematocrit 14.4 % (41.0-53.0)
[2025-01-10 11:24] LABS: Hemoglobin 4.1 g/dL (13.5-17.5)
--- NOTE | 2025-01-10 12:59 | DVHDS2 ---
Summary Date of Admission Dec 31, 2024 at 13:10 Date and Time of Expiration: Jan 10, 2025 11:41 Reason for Admission: Generalized weakness and decreased appetite Labs/Diagnostic Data: Laboratory Results Test 01/10/25 10:54 01/10/25 04:44 01/10/25 04:36 01/09/25 10:05 Hemoglobin 4.1 g/dL (13.5-17.5) Hematocrit 14.4 % (41.0-53.0) POC Glucose 119 mg/dl (70-106) White Blood Count 8.9 10^3/uL (4.4-10.8) Red Blood Count 2.36 10^6/uL (4.5-5.90) Mean Corpuscular Volume 91.5 fL (80.0-100.0) Mean Corpuscular Hemoglobin 30.0 pg (28.0-32.0) Mean Corpuscular Hemoglobin Concent 32.8 g/dL (32.0-36.0) Red Cell Distribution Width 22.0 % (11.8-14.3) Platelet Count 61 10^3/uL (140-450) Mean Platelet Volume 8.8 fL (6.9-10.8) Neutrophils (%) (Auto) 69.0 % (37.0-80.0) Lymphocytes (%) (Auto) 19.1 % (10.0-50.0) Monocytes (%) (Auto) 8.4 % (0.0-12.0) Eosinophils (%) (Auto) 2.1 % (0.0-7.0) Basophils (%) (Auto) 1.4 % (0.0-2.0) Neutrophils # (Auto) 6.1 10 ^3/uL (1.6-8.6) Lymphocytes # (Auto) 1.7 10 ^3/uL (0.4-5.4) Monocytes # (Auto) 0.7 10 ^3/uL (0-1.3) Eosinophils # (Auto) 0.2 10 ^3/uL (0-0.8) Basophils # (Auto) 0.1 10 ^3/uL (0-0.2) Nucleated Red Blood Cells 1.1 % Platelet Estimate Decreased Hypochromasia (manual) Slight Anisocytosis (manual) Slight Target Cells Few [place] Cells Few Sodium Level 137 mmol/L (136-145) Potassium Level 3.9 mmol/L (3.5-5.1) Chloride Level 101 mmol/L (98-107) Carbon Dioxide Level 21 mmol/L (20-31) Anion Gap 15 (5-15) Blood Urea Nitrogen 52 mg/dL (9-23) Creatinine 1.29 mg/dL (0.700-1.30) Glomerular Filtration Rate Calc 57 mL/min (>90) BUN/Creatinine Ratio 40.3 (10.0-20.0) Serum Glucose 118 mg/dL (74-106) Calcium Level 8.2 mg/dL (8.7-10.4) Phosphorus Level 2.5 mg/dL (2.4-5.1) Magnesium Level 2.0 mg/dL (1.6-2.6) Total Bilirubin 2.1 mg/dL (0.2-1.0) Aspartate Amino Transferase (AST) 181 U/L (13-40) Alanine Aminotransferase (ALT) 70 U/L (7-40) Alkaline Phosphatase 131 U/L (46-116) Total Protein 4.4 g/dL (5.7-8.2) Albumin 1.8 g/dL (3.2-4.8) HIV (1&2) Antibody Negative (Negative) Test 01/09/25 04:44 01/08/25 07:07 01/07/25 05:20 01/06/25 11:01 Prothrombin Time 12.5 sec (9.3-11.8) Prothrombin Time INR 1.20 (0.9-1.15) Activated Partial Thromboplast Time 34.9 SEC (24.5-34.5) Differential Total Cells Counted 100.0 (100) Neutrophils % (Manual) 62 (37.0-80.0) Band Neutrophils % (Manual) 2 Lymphocytes % (Manual) 28 (10.0-50.0) Monocytes % (Manual) 4 (0-12) Eosinophils % (Manual) 2 (0-7) Basophils % (Manual) 0 (0.0-2.0) Metamyelocytes % (manual) 0 Myelocytes % (Manual) 0 Promyelocytes % (Manual) 0 Blast Cells % (Manual) 0 Reactive Lymphocytes 2 Polychromasia Slight C-Reactive Protein High Sensitivity 11.67 mg/dL (<1.0) Blood Gas Specimen Type Arterial Blood Gas Sample Site Left radial Blood Gas Patient Temperature 37.0 Arterial Blood Date Drawn [id number] Arterial Blood pH 7.428 (7.350-7.450) Arterial Blood Partial Pressure CO2 30.0 mmHg (35.0-48.0) Arterial Blood Partial Pressure O2 54.5 mmHg (83.0-108.0) Arterial Blood HCO3 19.4 mmol/L (21.0-28.0) Arterial Blood Oxygen Saturation 88.1 % (94.0-98.0) Arterial Blood Base Excess -4.2 mmol/L (-2.0-3.0) Arterial Blood Oxyhemoglobin 86.9 % (94.0-98.0) Arterial Blood Carboxyhemoglobin 0.7 % (0.5-1.5) Arterial Blood Methemoglobin 0.7 % (0.0-1.5) Raj Test Yes Blood Gas Total Hemoglobin 9.30 g/dL (13.5-17.5) Blood Gas Modality Room air FiO2 % 21.0 Blood Gas Critical Value Read Back Yes Blood Gas Notified Whom Blood Gas Notified Time [id number] Blood Gas Notified By Tosha [email or web address] rt Test 01/05/25 03:13 01/04/25 14:30 01/03/25 09:02 01/02/25 12:00 Large Platelets Few Schistocytes Few Triglycerides Level 80 mg/dL (< 150) Body Fluid Glucose 161 mg/dL (.) Body Fluid Total Protein 0.9 g/dL (.) Body Fluid Lactate Dehydrogenase 127 IU/L (.) Lactic Acid Level 3.1 mmol/L (0.4-2.0) Fibrinogen 130 mg/dL (177-375) Ammonia < 10 umol/L (11-32) Test 01/02/25 03:11 01/01/25 09:23 12/31/24 21:52 12/31/24 19:44 Poikilocytosis (manual) Slight Microcytosis Slight Ovalocytes Few Lipase 176 U/L (12-53) Iron Level 11 ug/dL (65-175) Total Iron Binding Capacity 235 ug/dL (250-425) Percent Iron Saturation 4.7 % (20-55) Ferritin 57.7 ng/mL (22-322) Thyroid Stimulating Hormone (TSH) 2.31 uIU/mL (0.55-4.78) Stool Occult Blood Positive (Negative) Stool Occult Blood Sample #3 (Negative) Urine Color Yellow (Yellow) Urine Clarity Turbid (Clear) Urine pH 5.5 (5.0-9.0) Urine Specific [place] 1.022 (1.001-1.035) Urine Protein 1+ (Negative) Urine Ketones 1+ (Negative) Urine Blood Trace /uL (Negative) Urine Nitrite Negative (Negative) Urine Bilirubin Negative (Negative) Urine Urobilinogen Normal mg/dL (Negative) Urine Leukocyte Esterase Negative /uL (Negative) Urine RBC 3 /hpf (0 - 3) Urine Microscopic WBC 9 /HPF (0-3) Urine Squamous Epithelial Cells Few /hpf (<5) Urine Bacteria None seen /hpf (None Seen) Urine Mucus Few (None Seen) Urine Glucose Normal mg/dL (Normal) Test 12/31/24 11:28 Hemoglobin A1c 5.7 % A1C (<5.7) B-Type Natriuretic Peptide 261.59 pg/mL (0-100) Other Laboratory Tests 01/10/25 10:54 01/10/25 04:36 Brief Hx & Hospital Course: Patient is 71-year-old male who came to the hospital with a chief complaint of generalized weakness and decreased appetite for two weeks. Patient was recently diagnosed with hepatocellular carcinoma receiving chemotherapy. During hospitalization patient found to have mixed shock hypovolemic and septic including upper and lower GI bleed. Patient received 6 units of PRBC and 2 units of FFP and cryoprecipitate with albumin and vitamin K and IV iron. Given secondary pneumonia patient was also treated with IV antibiotics. Procedure kohler patient underwent paracentesis and CT scan of abdomen showed large pancreatic head as well. Over the course of hospitalization patient medical condition deteriorate, prolonged discussion was done on 01/10/2025 regarding goals of care were family opted out for DNI DNR and comfort measure. All measures including vasopressors, IV antibiotics, blood products were opted out and patient was pronounced on 01/10/2025 11:41 a.m. all decision were made with family including daughter and . Final Diagnosis/Problems List Mixed shock (hypovolemic and septic) Hypovolemic shock secondary to upper and lower GI bleed Upper and lower GI Bleed likely secondary to malignancy/portal hypertension/chemotherapy enterocolitis Sepsis secondary to pneumonia (aspiration versus Gram-positive and Gram-negative pneumonia) Acute respiratory failure probably secondary to aspiration pneumonia Bilateral pleural effusion (left greater than right) OSKAR hemodynamically mediated on CKD UTI Bicytopenia Normocytic anemia with iron deficiency Thrombocytopenia Hepatocellular carcinoma stage 3a - currently undergoing chemotherapy Transaminitis Hyperbilirubinemia Type 2 diabetes Hypertension Electrolyte alteration (hyponatremia, hyperkalemia, hypomagnesemia and hypokalemia Discharge Disposition: at Hospital JAN NAJERA RESIDENT Jan 10, 2025 12:59
--- NOTE | 2025-01-10 19:06 | DVHPN2 ---
Progress Note - Dictate Date Seen: Jan 10, 2025 Has the PT tested + for MRSA If YES, has PT been informed?: No Medical Necessity Reason Pt with a Central, PICC or Fol: Yes The following are medically ne: PICC Line, Dodge Catheter Reason for dodge catheter: Strict I&O Subjective Patient seen and examined at bedside. Remains on supplemental oxygen Overnight events reviewed. vital signs Vital Sign Date Time Temp Pulse Resp B/P (MAP) Pulse Ox O2 Delivery O2 Flow Rate FiO2 01/10/25 10:42 106 20 100 01/10/25 10:36 Nasal Cannula* 1 24 01/10/25 08:48 97.4 84/50 (61) 97.4 Total Intake and Output 01/09/25 01/09/25 01/10/25 14:59 22:59 06:59 Intake Total 0 ml 1625.1 ml 200 ml Output Total 1700 ml 1200 ml Balance 0 ml -74.9 ml -1000 ml objective Gen.: Patient lying in bed in no apparent distress. On supplemental oxygen. Head: Normocephalic, atraumatic. Temporal wasting noted. Eyes: EOMI/PERRLA. Ears: Normal hearing. Normal anatomy. Neck/trachea: Trachea midline, supple. Nose: Normal external anatomy. Mouth: Moist mucous membranes. Chest: Decreased air entry bilaterally. Rhonchi heard. No wheezing. Cardiovascular: Positive S1, positive S2. Regular rate and rhythm. Abdomen: Positive bowel sounds in all 4 quadrants. Soft, non-tender, non- distended. : Deferred. Rectal: Deferred. Skin: Warm, dry. Intact. Extremities: 2+ radial pulses bilaterally. No lower extremity edema. Neuro: Awake, alert, oriented x3. No gross motor or sensory deficits. Cranial nerves II through XII intact. Gait not assessed. laboratory and microbiology Laboratory Tests 01/10/25 10:54 01/10/25 04:36 Test 01/10/25 04:36 Range/Units Serum Glucose 118 H 74-106 mg/dL Assessment/Plan Impression: Acute hypoxic respiratory failure Dependence on supplemental oxygen Acute GI hemorrhage Anemia 2/2 GI hemorrhage Hypovolemic shock. Events: Remains on supplemental oxygen On 2 LPM NC Taper O2 as tolerated Hemoglobin dropped to 7.1 -->4.1 g/dL Patient with GI bleed Upgraded to ICU. Transfusion ordered. Chest x-ray remarkable for bilateral pleural effusions. Family has signed DNR/DNI Start comfort measures tomorrow Patient passed swallow evaluation yesterday Head of bed elevation Aspiration precautions Incentive spirometry Continue antibiotics Follow up sputum cultures Antitussive for cough Protonix drip Continue to monitor hemoglobin Transfuse if less than 7.0 g/dL. Continue TPN for nutritional support Monitor renal function. Monitor electrolytes. Supplement as necessary. Monitor ins and outs Dodge cath - improved urine output Disposition per hospitalist. S/p paracentesis 01/04 with 4 liters removed Ascitic fluid cultures show no growth Labs and imaging reviewed. Rest of plan as noted below. Plan: Supplemental oxygen Titrate to keep O2 sats above 92%. Monitor hemoglobin GI recommendations appreciated Protonix drip S/p PICC line placement Pressors if necessary for hemodynamic support Titrate to keep mean arterial pressure greater than 65 mmHg Continue antibiotics Monitor renal function. Monitor electrolytes. Supplement as necessary. Monitor ins and outs. DVT prophylaxis. Patient is DNR/DNI Prognosis: Poor given patient's multiple co-morbidities. Condition: Critical Rest of plan per hospitalist and other consultants. A total of 35 minutes of critical care time was spent reviewing the patient record, examining the patient, making a diagnostic and therapeutic plan, discussing this plan with the medical personnel, following up on diagnostic studies and following the patient for clinical stability excluding any and all procedures. At least 50% of this time was spent in direct, [id number] contact. Thank you Dr. Dunaway for allowing me to participate in this patient's care. Further recommendations will depend on the patient's clinical course. Please do not hesitate to contact me if you have any questions or concerns. This medical document was created using an electronic medical record system with [employer] dictation system. Although these documentations are being carefully reviewed, there may still be some phonetic and typographical changes. The errors are purely typographical, due to imperfection on the software program, and do not reflect any compromise in the patient's medical care. Dietary Evaluation Review Recommendations by RD: Protein Supplementation Comments: 1) If patient remains NPO > 7 days, consider EN/TPN to meet at least 75% daily estimated needs 2) Consider Pro-Stat @ 30 mL qd d/t increased protein needs 3) Initiate vitamin C @ 500 mg bid and zinc sulfate @ 220 mg qd for 7-10 days 4) Initiate multivitamin @ 1 tb qd 5) Advance to 60g CCHO low-fat diet when medically feasible, per PUBLIC INFORMATION COORDINATOR approval 6) F/u with gastroenterology, oncology, and nephrology 7) Continue to monitor I&O, labs, and skin integrity Expected Outcomes/Goals: 1) Patient to receive nutritional support within 7 days 2) wound and labs to improve 3) diet to advance 4) f/u in 2-3 days Plan discussed with: Other (RN Beckie) Critical Care Time(min): 35 LAUREN GUPTA MD Jan 10, 2025 19:06
[2025-01-10] MEDS ORDERED: TPN PER PHARMACY IV NR (22:00)
[2025-01-11 10:38] LABS: Hepatitis A Ab IgM Negative; Hepatitis B Core IgM Negative (Negative); Hepatitis B Surface Antigen Negative (Negative); Hepatitis C Antibody Negative (Negative)
== END 2025-01-10 11:41 | DRG 871 ==
LOC: EDBD 10:02 → ER 10:11 → OVERFLOW 13:10 → CENTRAL 01-01 02:24 → ICU WEST 01-01 17:37 → TELE-CENTR 01-05 15:53 → ICU WEST 01-10 11:38
PROVIDERS: ADMIT Internal Medicine; ATTEND Internal Medicine
PROC: 30233K1 Transfusion of Nonautologous Frozen Plasma into Peripheral Vein, Percutaneous Approach (ICD-10-PCS; 2025-01-02)
PROC: 30233M1 Transfusion of Nonautologous Plasma Cryoprecipitate into Peripheral Vein, Percutaneous Approach (ICD-10-PCS; 2025-01-02)
PROC: 05H933Z Insertion of Infusion Device into Right Brachial Vein, Percutaneous Approach (ICD-10-PCS; 2025-01-02)
PROC: B54MZZA Ultrasonography of Right Upper Extremity Veins, Guidance (ICD-10-PCS; 2025-01-02)
PROC: 30233N1 Transfusion of Nonautologous Red Blood Cells into Peripheral Vein, Percutaneous Approach (ICD-10-PCS; principal; 2025-01-03)
PROC: 0W9G3ZZ Drainage of Peritoneal Cavity, Percutaneous Approach (ICD-10-PCS; 2025-01-04)
PROC: 02HV33Z Insertion of Infusion Device into Superior Vena Cava, Percutaneous Approach (ICD-10-PCS; 2025-01-04)
PROC: B548ZZA Ultrasonography of Superior Vena Cava, Guidance (ICD-10-PCS; 2025-01-04)
DX: A41.50 Gram-negative sepsis, unspecified (principal); J15.69 Pneumonia due to other Gram-negative bacteria; J96.01 Acute respiratory failure with hypoxia; J15.9 Unspecified bacterial pneumonia; R65.21 Severe sepsis with septic shock; J69.0 Pneumonitis due to inhalation of food and vomit; E87.1 Hypo-osmolality and hyponatremia; E87.20 Acidosis, unspecified; N39.0 Urinary tract infection, site not specified; D62 Acute posthemorrhagic anemia; J90 Pleural effusion, not elsewhere classified; K92.1 Melena; C22.0 Liver cell carcinoma; K92.0 Hematemesis; D68.9 Coagulation defect, unspecified; R18.8 Other ascites; N17.9 Acute kidney failure, unspecified; K92.2 Gastrointestinal hemorrhage, unspecified; K76.6 Portal hypertension; K52.0 Gastroenteritis and colitis due to radiation; R57.1 Hypovolemic shock; E83.42 Hypomagnesemia; E87.6 Hypokalemia; Z66 Do not resuscitate; D69.6 Thrombocytopenia, unspecified; E11.22 Type 2 diabetes mellitus with diabetic chronic kidney disease; N18.32 Chronic kidney disease, stage 3b; E87.5 Hyperkalemia; R74.01 Elevation of levels of liver transaminase levels; E80.6 Other disorders of bilirubin metabolism; I12.9 Hypertensive chronic kidney disease with stage 1 through stage 4 chronic kidney disease, or unspecified chronic kidney disease; Z79.84 Long term (current) use of oral hypoglycemic drugs; Z79.899 Other long term (current) drug therapy; Z79.2 Long term (current) use of antibiotics; Z99.81 Dependence on supplemental oxygen; Z51.5 Encounter for palliative care
CPT/HCPCS: 36415; 36569; 36600; 49083; 71045; 74176; 76705; 76775; 76937; 76942; 80048; 80053; 80074; 81001; 82140; 82270; 82728; 82805; 82962; 83036; 83540; 83550; 83605; 83690; 83735; 83880; 84100; 84443; 84478; 85007; 85014; 85018; 85025; 85027; 85049; 85384; 85610; 85730; 86141; 86703; 86850; 86900; 86901; 86922; 87040; 87070; 87077; 87081; 87086; 87186; 87205; 92610; 93005; 93306; 94640; 96365; 97110; 97116; 97163; 97530; 99291; G0378; J1756; J1815; J2003; J2405; J2470; J2543; J3430; J7131